=== PATIENT | female | born 1955 | race Caucasian/White ===

== ENCOUNTER → 2016-09-18 | Day surgery (SDC) | payer BC, OTHER ==
[2016-08-31 08:32] VITALS: Ht 166.4 cm; Wt 96.4 kg
[2016-09-11 13:10] LABS: HEMATOCRIT 39.6 % (37-47); MEAN CELL VOLUME 80.3 fL (80-100); MEAN CORPUSCULAR HEMOGLOBIN 26.6 pg (25-34); MEAN CORPUSCULAR HGB CONC 33.1 g/dl (32-36); MEAN PLATELET VOLUME 10.3 fL (7.4-10.4); PLATELET COUNT 206 K/uL (130-400); RED BLOOD COUNT 4.93 M/uL (4.2-5.4); WHITE BLOOD COUNT 5.93 K/uL (4.8-10.8)
[2016-09-11 13:25] LABS: PARTIAL THROMBOPLASTIN RATIO 1.1; PROTHROMBIN TIME (PATIENT) 11.1 SECONDS (9.0-12.0)
--- NOTE | 2016-09-11 13:45 | DIAGNOSTIC IMAGING REPORT ---
CHEST 2 VIEWS ROUTINE CLINICAL HISTORY: PRE OP- SEND TO [facility] AFTER RAD COMPARISON STUDY: 05/17/2015 FINDINGS: The bones soft tissues and hemidiaphragms are normal. The cardiomediastinal silhouette is normal. The lungs are clear. The pulmonary vasculature is normal. IMPRESSION: Negative chest. Electronically signed by: Jp Mueller M.D. 09/11/2016 1:42 PM Dictated Date/Time: 09/11/2016 1:42 PM
[~2016-09-18] VITALS: Ht 166.4 cm; Wt 96.4 kg
[~2016-09-18] MED LIST: ALBUAER2 INH; ASPI81TA28 PO; ATROPINE SULFATE 0.1 MG/ML 5ML SYR IV PRN; BUPIVACAINE 0.5 % 5 MG/1 ML MPF 30ML VIAL ONE; CEFAZOLIN 2000 MG/60 ML D5W 60 ML IV SCH; CEPH500C2 PO; CHOL100010 PO; CYAN100020 PO; DEXAMETHASONE SOD INJ 4 MG/ML VIAL ONE; DICY10CA12 PO; FENTANYL CITRATE INJ 50 MCG/1 ML 2 ML VIAL IV PRN; FENTANYL CITRATE INJ 50 MCG/1 ML 2 ML VIAL ONE; HYDROCODONE/ACETAMOPHEN 5/325MG TAB ONE; HYDROCODONE/ACETAMOPHEN 5/325MG TAB PO PRN; LACTATED RINGER'S 1000ML 1,000 ML IV SCH; LIDOCAINE HCL 1% 20 ML VIAL ONE; LIDOCAINE HCL 2% 2 ML VIAL (20MG/ML) ONE; LIQUID IRON PO; METOCLOPRAMIDE HCL INJ 5 MG/ML 2 ML VIAL IV PRN; MIDAZOLAM HCL 1 MG/ML 2ML VIAL ONE; MISCCAP80 PO; MULT-506 PO; ONDANSETRON INJ 2 MG/ML 2 ML VIAL IV PRN; ONDANSETRON INJ 2 MG/ML 2 ML VIAL ONE; OXYCODONE/ACETAMINOPHEN 5-325 TAB PO PRN; PROPOFOL IV EMULSION 10 MG/ML 20 ML VIAL IV ONE; SENN-58 PO; SODIUM CHLORIDE 0.9% 1000ML 1,000 ML IV SCH; VRPSR180 PO
--- NOTE | 2016-09-18 08:59 | History & Physical Bridge - [place] ---
H&P Re-Evaluation Bridge Note: I have examined the patient, reviewed the History & Physical and in the interval since the performance of the History & Physical I have noted the following changes of clinical significance: No changes noted
[2016-09-18 10:30] VITALS: TEMP 36.6
--- NOTE | 2016-09-18 10:32 | Discharge Instructions-SurgCtr ---
Discharge Instructions Date of Service Sep 18, 2016. Visit Reason for Visit: Left Foot Non Pressure Ulcer, Hammertoe, Pain Discharge Discharge Diagnosis / Problem: left hallux ulcer, diabetic, hammertoe 3rd Discharge Goals Goal(s): Decrease discomfort, Improve function Activity Recommendations Activity Limitations: as noted below (partial weightbearing left foot) Lifting Limitations: no more than 5 pounds Shower/Bathe: keep incision dry Driving or Machine Use: not until cleared Weightbearing Status: Left partial Anesthesia . Post Anesthesia Instructions: If you have had General Anesthesia or IV Sedation: * Do not drive today. * Resume driving when surgeon permits. * Do not make important decisions or sign legal documents today. * Call surgeon for: 1. Temperature elevations greater than 101 degrees F. 2. Uncontrollable pain. 3. Excessive bleeding. 4. Persistent nausea and vomiting. 5. Medication intolerance (nausea, vomiting or rash). * For nausea and vomiting use only clear liquids such as: tea, soda, bouillon until nausea subsides, then gradually increase diet as tolerated. * If you have any concerns or questions, call your surgeon's office. If physician is unavailable and it is an emergency, call 911 or go to the nearest emergency room. . Instructions / Follow-Up Instructions / Follow-Up keep dressing clean, dry and intact take pain medication as prescribed elevate left foot f/u Wednesday call [phone] with problems Diet Recommendations Home Diet: no limitations, diabetes diet Procedures Procedures Performed: Left Foot Surgical Correction Bunion Deformity, Distal Phalanx of Hallux Exosectomy, Ulcer Debridement With Bone Culture And Biopsy, Hammertoe Correction Third Digit Left Foot Pending Studies Studies pending at discharge: no Medical Emergencies . Who to Call and When: Medical Emergencies: If at any time you feel your situation is an emergency, please call 911 immediately. . Non-Emergent Contact Non-Emergency issues call your: Primary Care Provider Call Non-Emergent contact if: temperature is above 101.5 . . "Provider Documentation" section prepared by Rosanna Mcgill. . [place] Drug Monitoring Program Search Results: patient reviewed within database, no issues identified
--- NOTE | 2016-09-18 10:34 | [facility] Post Operative Brief Note ---
Immediate Operative Summary Operative Date Sep 18, 2016. Pre-Operative Diagnosis Left Foot Non Pressure Ulcer, Hammertoe 3rd Digit Left Foot, Pain Post-Operative Diagnosis same Procedure(s) Performed Left Foot Surgical Correction Bunion Deformity, Distal Phalanx of Hallux Exosectomy, Ulcer Debridement With Bone Culture And Biopsy, Hammertoe Correction Third Digit Left Foot Surgeon Dr. Sarai Bae Can Slider Surgeon(s) 0 Estimated Blood Loss 1cc Findings bone left foot and soft tissue Specimens A. Bone Left Talus Left Foot--sent FRESH to Lab B. C&S Bone Left Foot Culture Drains none Anesthesia local iv sedation Complication(s) None Disposition Recovery Room / PACU
[2016-09-18 11:04] VITALS: BP 121/73; PULSE 62; O2SAT 96
--- NOTE | 2016-09-18 11:09 | Anesthesia Progress Nt - [facility] ---
Anesthesia Post Op Note Date & Time Sep 18, 2016 at 11:09 Vital Signs Pain Intensity: 3.0 Vital Signs Past 12 Hours Date Time Temp Pulse Resp B/P Pulse Ox O2 Delivery O2 Flow Rate FiO2 09/18/16 11:04 62 18 121/73 96 Room Air 09/18/16 10:30 36.6 71 16 123/80 99 Room Air 09/18/16 07:40 36.4 55 16 132/83 97 Room Air Notes Mental Status: alert / awake / arousable, participated in evaluation Pt Amnestic to Procedure: Yes Nausea / Vomiting: adequately controlled Pain: adequately controlled Airway Patency, RR, SpO2: stable & adequate BP & HR: stable & adequate Hydration State: stable & adequate Anesthetic Complications: no major complications apparent
--- NOTE | 2016-09-19 01:49 | OPERATIVE REPORT ---
DATE OF OPERATION: 09/18/2016 SURGEON: Rosanna Mcgill DPM. PREOPERATIVE DIAGNOSES: Left foot ulcer, plantar phalanx. Ulcer measured about 0.3 x 0.4 with a depth that had measured about 0.2 and there was some probing to bone, although no bone visible and MRI was suspicious for osteomyelitis. She had an ulcer deformity. She has a slight bunion/arthritis/hallux rigidus at the first metatarsophalangeal joint and hammertoe of the third digit that also had an ulcer at the distal end, which with her being compliant, did heal. POSTOPERATIVE DIAGNOSES: Same. PROCEDURE: Left Lott arthroplasty with resection of the base of the proximal phalanx, exostectomy of the distal phalanx, ulcer debridement and bone culture and bone sent for pathology, and third digit arthroplasty. ANESTHESIA: Local IV sedation. BLOOD LOSS: About 1 mL DESCRIPTION OF PROCEDURE: The patient was brought to the operating room and placed in supine position. The left lower extremity was prepped and draped in the usual sterile manner. A 1:1 mix of 1% lidocaine plain and 0.5% Marcaine was utilized to anesthetize the left leg at the level of the first metatarsophalangeal joint, the left hallux, and the left third digit. At this time, anesthesia was induced, the tourniquet was inflated, a timeout was taken and the procedure began. A dorsal linear incision was made over the left third digit, this was over the proximal interphalangeal joint. Dissection was carried through the skin and subcutaneous tissues to the level of the joint capsule. The joint capsule was then transcribed as well as transcribing the long extensor tendon of the third digit and dissecting both medial and laterally and proximally and distally to expose the head of the proximal phalanx. This was excised utilizing the sagittal saw and passed off the table. The area was flushed with copious amounts of normal saline. An arthroplasty was performed with resection of the head of the proximal phalanx. Next, no K-wire fixation was used due to the patient having an ulcer that was present before. The long extensor tendon was then reattached utilizing 0 Vicryl and the subcutaneous tissues were closed with 3-0 Vicryl and skin was closed with 3-0 nylon in simple interrupted sutures. Next, attention was directed to the left first metatarsophalangeal joint. Dissection was carried through the skin and subcutaneous tissues to the level of the joint capsule. At this point, dissection was carried through the skin and subcutaneous tissues to the level of joint capsule which was transcribed in line with the original incision and dissected both medially and laterally to expose the joint. There was some arthritis present and there was a small amount of bone medially which was resected utilizing the sagittal saw. Next, the base of the proximal phalanx was excised, a very small amount was excised in order to increase the mobility in the joint space. Next, the area was flushed with copious amounts of normal saline and EHL tendon lengthening was also performed and the tendon was reattached utilizing 2-0 Vicryl. Next, the capsular tissues were closed with 3-0 Vicryl, the subcutaneous tissues were closed with 3-0 Vicryl, and the skin was closed with 3-0 nylon in horizontal mattress sutures. Attention was then directed to the ulceration that was present and the ulceration was debrided and any of the tissue was debrided, it was sent to pathology for permanent specimen. The bone which was underneath, part of the bone was excised utilizing the rongeur and sent as fresh specimen to pathology to check for osteomyelitis. Cultures were obtained. After the cultures, the area was flushed and the ulceration was closed with 2-0 nylon. At this point, compressive and corrective dressings were applied. The tourniquet was deflated. The patient was taken to recovery room with all vital signs stable and intact. She will follow up with me in the office in 1 week. The patient opted for surgical correction to help eliminate the high pressure areas that are predominant forces and forming ulcer at the plantar medial aspect of the hallux as well as the ulcer that repeatedly forms at the end of the 3rd digit. There was also a concern for osteomyelitis given the MRI conclusions of possible osteomyelitis. Thus far, the patient has been on antibiotics that are empiric in nature, and as stated previously, cultures are obtained to ensure she is continuing on the proper antibiotic. Again, she will sign consent for this and follow up with me in the office in 1 week. I attest to the content of the Intraoperative Record and any orders documented therein. Any exceptio ns are noted below.
== END | disposition home or self-care (01) ==
LOC: X.SURG 07:25
PROVIDERS: ATTEND Podiatrist
DX: L97.521 Non-pressure chronic ulcer of other part of left foot limited to breakdown of skin (principal); M20.42 Other hammer toe(s) (acquired), left foot; E11.42 Type 2 diabetes mellitus with diabetic polyneuropathy; Z68.34 Body mass index [BMI] 34.0-34.9, adult; E66.8 Other obesity

== ENCOUNTER 2017-05-23 20:52 | Emergency (ER) | payer BC, OTHER ==
[~2017-05-23] VITALS: Ht 166.4 cm; Wt 95.9 kg
[~2017-05-23 20:52] MED LIST changes: -ATROPINE SULFATE 0.1 MG/ML 5ML SYR IV PRN; -BUPIVACAINE 0.5 % 5 MG/1 ML MPF 30ML VIAL ONE; -CEFAZOLIN 2000 MG/60 ML D5W 60 ML IV SCH; -CEPH500C2 PO; -DEXAMETHASONE SOD INJ 4 MG/ML VIAL ONE; -FENTANYL CITRATE INJ 50 MCG/1 ML 2 ML VIAL IV PRN; -FENTANYL CITRATE INJ 50 MCG/1 ML 2 ML VIAL ONE; -HYDROCODONE/ACETAMOPHEN 5/325MG TAB ONE; -HYDROCODONE/ACETAMOPHEN 5/325MG TAB PO PRN; -LACTATED RINGER'S 1000ML 1,000 ML IV SCH; -LIDOCAINE HCL 1% 20 ML VIAL ONE; -LIDOCAINE HCL 2% 2 ML VIAL (20MG/ML) ONE; -METOCLOPRAMIDE HCL INJ 5 MG/ML 2 ML VIAL IV PRN; -MIDAZOLAM HCL 1 MG/ML 2ML VIAL ONE; -ONDANSETRON INJ 2 MG/ML 2 ML VIAL IV PRN; -ONDANSETRON INJ 2 MG/ML 2 ML VIAL ONE; -OXYCODONE/ACETAMINOPHEN 5-325 TAB PO PRN; -PROPOFOL IV EMULSION 10 MG/ML 20 ML VIAL IV ONE; -SODIUM CHLORIDE 0.9% 1000ML 1,000 ML IV SCH
[2017-05-23 20:54] VITALS: TEMP 36.7; Ht 166.4 cm; Wt 95.9 kg
[2017-05-23] MEDS ORDERED: SULFAMETHOXAZOLE/TRIMETHOPRIM DS 800/160MG TAB PO STA (21:19)
[2017-05-23] MEDS ORDERED: CEFTRIAXONE SOD INJ 1 GM ADDVIAL IV STA (21:19)
[2017-05-23 21:55] LABS: BASO % 0.2 %; BASO ABS # 0.02 K/uL (0-0.2); COMPLETE YES; EOS % 1.5 %; HEMATOCRIT 39.9 % (37-47); IG% 0.2 %; LYMPH % 23.4 %; LYMPH ABS # 2.35 K/uL (1.2-3.4); MEAN CELL VOLUME 85.4 fL (80-100); MEAN CORPUSCULAR HEMOGLOBIN 28.1 pg (25-34); MEAN CORPUSCULAR HGB CONC 32.8 g/dl (32-36); MEAN PLATELET VOLUME 10.1 fL (7.4-10.4); MONO % 9.4 %; NEUT % 65.3 %; PLATELET COUNT 195 K/uL (130-400); RED BLOOD COUNT 4.67 M/uL (4.2-5.4); WHITE BLOOD COUNT 10.03 K/uL (4.8-10.8)
--- NOTE | 2017-05-23 22:22 | DIAGNOSTIC IMAGING REPORT ---
ULTRASOUND L VENOUS DOPP LOWER EXT UNILAT CLINICAL HISTORY: left leg swelling COMPARISON STUDY: No previous studies for comparison. FINDINGS: Real-time and color flow Doppler imaging were performed. Flow was seen within the femoral, popliteal and calf veins with no intraluminal thrombus demonstrated. The saphenous vein is patent. IMPRESSION: No evidence of left lower extremity DVT. Electronically signed by: Ajit Larios M.D. 05/23/2017 10:21 PM Dictated Date/Time: 05/23/2017 10:20 PM
[2017-05-23 22:23] LABS: BUN/CREATININE RATIO 17.8 (10-20); CALCIUM 8.8 mg/dl (8.5-10.1); CREATININE 0.8 mg/dl (0.60-1.20); POTASSIUM 3.9 mmol/L (3.5-5.1)
[2017-05-23 22:26] LABS: PARTIAL THROMBOPLASTIN RATIO 1.7; PROTHROMBIN TIME (PATIENT) 21.2 SECONDS (9.0-12.0)
[2017-05-23] MEDS ORDERED: DOCU-94 PO (22:47)
[2017-05-23] MEDS ORDERED: BNT/10 PO (22:47)
[2017-05-23] MEDS ORDERED: WARF5TAB90 PO (22:47)
[2017-05-23] MEDS ORDERED: VNTHFA/IN INH (22:47)
[2017-05-23] MEDS ORDERED: MULTTAB PO (22:47)
[2017-05-23] MEDS ORDERED: FSLL PO (22:47)
[2017-05-23] MEDS ORDERED: FLV400 PO (22:47)
[2017-05-23] MEDS ORDERED: CHOL1TAB42 PO (22:47)
[2017-05-23] MEDS ORDERED: CALC1CHW2 PO (22:47)
[2017-05-23] MEDS ORDERED: MISCCAP80 PO (22:47)
[2017-05-23] MEDS ORDERED: PAIN PUMP (22:51)
[2017-05-23] MEDS ORDERED: ACETAMINOPHEN 500 MG TAB PO STA (23:13)
[2017-05-23] MEDS ORDERED: HYDROmorphone INJ 0.5 MG/0.5 ML SYR IV STA (23:32)
[2017-05-24 00:02] VITALS: PULSE 98; O2SAT 96
[2017-05-24 00:08] VITALS: BP 150/87
[2017-05-24] MEDS ORDERED: CEPHALEXIN 500MG HOME PACK 1 EA BTL PO ONE (00:15)
[2017-05-24] MEDS ORDERED: SEPTRA DS HOME PACK 1 EA VIAL PO ONE ×2 (00:15)
[2017-05-24] MEDS ORDERED: SULF800T23 PO (00:19)
[2017-05-24] MEDS ORDERED: CEPH500C PO (00:19)
--- NOTE | 2017-05-24 02:51 | EMERGENCY ROOM VISIT NOTE ---
History Report prepared by Brendan: Nacho May Under the Supervision of: Dr. Silvio Billings M.D. First contact with patient: 21:04 Chief Complaint: INFECTION Stated Complaint: SWELLING,PAIN,REDNESS,DRAINAGE FROM SURGICAL SITE History of Present Illness The patient is a 61 year old female who presents to the Emergency Room with complaints of a constant infection on her left foot beginning last night. The patient states that she recently had a plate placed on the right side of her left foot and pin placed in her third toe on her left foot. She notes that when she took her sock off last night, the pin was found lying inside. She reports that when she took the dressing off her toe this morning, it appeared a yellowish-brown color. She also complains of leg spasms going up her leg. The patient states that she thought she had a fever today, but did not have a temperature when she first came to the emergency room tonight. She reports that she has had a stroke in the past. Pt denies LOC, headache, chills, diaphoresis, visual changes, neck pain, chest pain, breathing difficulties, nausea, vomiting , abdominal pain, back pain, melena, hematochezia, urinary symptoms, numbness, weakness, lymphadenopathy, rash, flu symptoms, or other complaints. Source of History: patient Onset: last night Position: other Quality: other (infection) Timing: constant Associated Symptoms: + fevers (subjective) Note: She complains of a yellowish-brown discharge on her toe dressing and leg spasms. Review of Systems See HPI for pertinent positives and negatives. A total of ten systems were reviewed and were otherwise negative. Past Medical & Surgical Medical Problems: (1) Asthma (2) Avulsion, finger tip (3) Cerebrovascular accident (4) Chronic back pain (5) Depression (6) Diabetes (7) Post laminectomy syndrome (8) Presence of intrathecal pump (9) SOB (shortness of breath) Surgical Problems: (1) H/O foot surgery (2) History of breast biopsy (3) History of cataract surgery (4) History of cholecystectomy (5) History of gastric bypass Family History No pertinent family history stated. Social History Smoking Status: Former Smoker Marital Status: Housing Status: lives with significant other Occupation Status: disabled Current/Historical Medications Scheduled Aspirin (Aspirin Ec), 81 MG PO QAM Calcium Carbonate-Vitamin D (Caltrate 600+D 600-400 mg-Unit), 1 TAB PO DAILY Cephalexin Monohydrate (Keflex), 500 MG PO QID Cholecalciferol (Vitamin D), 5,000 UNITS PO DAILY Cyanocobalamin (Vitamin B12), 1 TAB PO QAM Ferrous Sulfate (Ferrous Sulfate), 5 ML PO BID Folic Acid (Folic Acid), 400 MCG PO BID Multivitamins/Minerals (Mvi With Minerals), 1 TAB PO DAILY Probiotic Product (Probiotic), 1 TAB PO DAILY Sulfa/Trimethoprim (Bactrim Ds 800MG/160MG), 1 TAB PO BID Verapamil HCl (Verapamil HCl ER), 180 MG PO QAM Warfarin Sodium (Coumadin), 5 MG PO DAILY [Pain Pump], UD Scheduled PRN Albuterol Hfa (Ventolin Hfa), 2 PUFFS INH Q4 PRN for SOB/Wheezing Dicyclomine HCl (Dicyclomine HCl), 10 MG PO QID PRN for Muscle Spasms Docusate Sodium (Colace), 1 CAP PO BID PRN for Constipation Allergies Coded Allergies: Aspirin (Verified Allergy, Severe, Asthma symptoms, 10/13/16) SOB, PRESSURE ON CHEST, OOB FEELING WITH 1ST DOSE OF DESENSITATION Latex1 -Allergic Contact Dermititis (Verified Allergy, Mild, RASH, 10/13/16 ) Guaifenesin (Verified Allergy, Unknown, ELEVATED BP, 10/13/16) NSAIDs (Verified Allergy, Unknown, TRIGGERS ASTHMA, 10/13/16) Phenylpropanolamine (Verified Allergy, Unknown, ELEVATED BLOOD PRESSURE, ) Red Dye (Verified Allergy, Unknown, VOMITING, 10/13/16) Docusate (Verified Adverse Reaction, Unknown, LIQUID COLACE "VOMITING", ) Ethanol (Verified Adverse Reaction, Unknown, LIQUID COLACE "VOMITING", ) Lorazepam (Verified Adverse Reaction, Unknown, SLEEP WALKING, 10/13/16) Zolpidem (Verified Adverse Reaction, Unknown, SLEEP WALKING, 10/13/16) Physical Exam Vital Signs Date Time Temp Pulse Resp B/P (MAP) Pulse Ox O2 Delivery O2 Flow Rate FiO2 05/24/17 00:08 150/87 05/24/17 00:02 98 20 96 05/23/17 23:57 95 16 96 05/23/17 23:42 89 14 05/23/17 23:32 124/75 05/23/17 23:28 142/91 05/23/17 23:27 95 17 05/23/17 23:07 101 22 92 05/23/17 22:52 99 23 94 05/23/17 22:45 101 05/23/17 22:38 103 18 148/82 97 05/23/17 20:54 36.7 108 18 127/79 98 Room Air Physical Exam GENERAL: Awake, alert, well-appearing, in no distress HENT: Normocephalic, atraumatic. Oropharynx unremarkable. EYES: Normal conjunctiva. Sclera non-icteric. NECK: Supple. No nuchal rigidity. FROM. No JVD. RESPIRATORY: Clear to auscultation. CARDIAC: Tachycardic, normal rhythm. Extremities warm and well perfused. Pulses equal. ABDOMEN: Soft, non-distended. No tenderness to palpation. No rebound or guarding. No masses. RECTAL: Deferred. MUSCULOSKELETAL: Chest examination reveals no tenderness. The back is symmetrical on inspection without obvious abnormality. There is no CVA tenderness to palpation. No joint edema. LOWER EXTREMITIES: Calves are equal size bilaterally. No discoloration. Left third toe is swollen, erythematous, warm and tender, purulent drainage from tip , redness and edema extending from top of foot. Left food second toe is surgically removed, incision over great toe on left side appears to be healing well. Left calf tenderness. NEURO: Normal sensorium. No sensory or motor deficits noted. SKIN: No rash or jaundice noted. Medical Decision & Procedures ER Provider Diagnostic Interpretation: Radiology results as stated below per my review and radiologist interpretation: ULTRASOUND L VENOUS DOPP LOWER EXT UNILAT CLINICAL HISTORY: left leg swelling COMPARISON STUDY: No previous studies for comparison. FINDINGS: Real-time and color flow Doppler imaging were performed. Flow was seen within the femoral, popliteal and calf veins with no intraluminal thrombus demonstrated. The saphenous vein is patent. IMPRESSION: No evidence of left lower extremity DVT. Electronically signed by: Ajit Larios M.D. 05/23/2017 10:21 PM FOOT X-RAY Bony destruction of head of fourth metatarsal which may be post surgical vs infectious. Hardware of the great toe and first metatarsal appears intact. There is no union of the third phalanges. No subcutaneous air was seen. Laboratory Results 05/23/17 21:30 Red Blood Count 4.67, Mean Corpuscular Volume 85.4, Mean Corpuscular Hemoglobin 28.1, Mean Corpuscular Hemoglobin Concent 32.8, Mean Platelet Volume 10.1, Neutrophils (%) (Auto) 65.3, Lymphocytes (%) (Auto) 23.4, Monocytes (%) (Auto) 9.4, Eosinophils (%) (Auto) 1.5, Basophils (%) (Auto) 0.2, Neutrophils # (Auto) 6.55, Lymphocytes # (Auto) 2.35, Monocytes # (Auto) 0.94, Eosinophils # (Auto) 0.15, Basophils # (Auto) 0.02 05/23/17 21:30 Test 05/23/17 21:30 White Blood Count 10.03 K/uL (4.8-10.8) Red Blood Count 4.67 M/uL (4.2-5.4) Hemoglobin 13.1 g/dL (12.0-16.0) Hematocrit 39.9 % (37-47) Mean Corpuscular Volume 85.4 fL (80-100) Mean Corpuscular Hemoglobin 28.1 pg (25-34) Mean Corpuscular Hemoglobin Concent 32.8 g/dl (32-36) Platelet Count 195 K/uL (130-400) Mean Platelet Volume 10.1 fL (7.4-10.4) Neutrophils (%) (Auto) 65.3 % Lymphocytes (%) (Auto) 23.4 % Monocytes (%) (Auto) 9.4 % Eosinophils (%) (Auto) 1.5 % Basophils (%) (Auto) 0.2 % Neutrophils # (Auto) 6.55 K/uL (1.4-6.5) Lymphocytes # (Auto) 2.35 K/uL (1.2-3.4) Monocytes # (Auto) 0.94 K/uL (0.11-0.59) Eosinophils # (Auto) 0.15 K/uL (0-0.5) Basophils # (Auto) 0.02 K/uL (0-0.2) RDW Standard Deviation 41.7 fL (36.4-46.3) RDW Coefficient of Variation 13.5 % (11.5-14.5) Immature Granulocyte % (Auto) 0.2 % Immature Granulocyte # (Auto) 0.02 K/uL (0.00-0.02) Prothrombin Time 21.2 SECONDS (9.0-12.0) Prothromb Time International Ratio 2.0 (0.9-1.1) Activated Partial Thromboplast Time 43.1 SECONDS (21.0-31.0) Partial Thromboplastin Ratio 1.7 Anion Gap 5.0 mmol/L (3-11) Est Creatinine Clear Calc Drug Dose 86.5 ml/min Estimated GFR () 92.9 Estimated GFR (Non- 80.1 BUN/Creatinine Ratio 17.8 (10-20) Calcium Level 8.8 mg/dl (8.5-10.1) Laboratory results reviewed by me Medications Administered Medications (Trade) Dose Ordered Sig/Lisa Route Start Time Stop Time Status Last Admin Dose Admin Ceftriaxone Sodium (Rocephin Inj) 1 gm NOW STAT IV 05/23/17 21:19 05/23/17 21:20 DC 05/23/17 21:47 1 GM Trimethoprim/ Sulfamethoxazole (Septra Ds 800/ 160MG Tab) 1 tab NOW STAT PO 05/23/17 21:19 05/23/17 21:20 DC 05/23/17 21:47 1 TAB Acetaminophen (Tylenol Tab) 1,000 mg NOW STAT PO 05/23/17 23:13 05/23/17 23:16 DC 05/23/17 23:21 1,000 MG Hydromorphone HCl (Dilaudid Inj) 0.5 mg NOW STAT IV 05/23/17 23:32 05/23/17 23:33 DC 05/23/17 23:46 0.5 MG Trimethoprim/ Sulfamethoxazole (Sulfameth/ Trimeth Ds 800/ 160MG Home Pack) 1 homepack UD ONCE PO 05/24/17 00:15 05/24/17 00:16 DC 05/24/17 00:29 1 HOMEPACK Trimethoprim/ Sulfamethoxazole (Sulfameth/ Trimeth Ds 800/ 160MG Home Pack) 1 homepack UD ONCE PO 05/24/17 00:15 05/24/17 00:16 DC 05/24/17 00:29 1 HOMEPACK Cephalexin Monohydrate (Keflex 500MG Home Pack) 1 homepack NOW ONCE PO 05/24/17 00:15 05/24/17 00:17 DC 05/24/17 00:29 1 [facility] ED Course 2107: The patient was evaluated in room B9. A complete history and physical exam was performed. 2118: Trimethoprim/Sulfamethoxazole 1 tab PO, Rocephin Inj 1gm IV 2215: I rechecked the patient and she is going well. 2313: Acetaminophen 1000mg PO 2326: I reevaluated and updated the patient. She is asking for some pain medication. 2332: Hydromorphone HCl 0.5mg IV 2359: I rechecked the patient. 0012: I reevaluated the patient. Discussed results and discharge instructions: She verbalized understanding and agreement. The patient is ready for discharge. Medical Decision Prior records reviewed and summarized as above. Triage Nursing notes reviewed and agree them. Additional history obtained from the family. The patient's history was concerning for swelling and redness of the skin. Differential diagnosis: Etiologies such as cellulitis, DVT, necrotizing fasciitis, abscess, MRSA infection, dermatitis, drug eruption, as well as others were entertained.. Physical examination: The physical examination was consistent with cellulitis ER treatment provided: IV Rocephin Oral Tylenol Oral Bactrim IV Dilaudid On reassessment the patient felt much better. Diagnostics interpreted by me: The labs revealed an unremarkable CBC and chemistry panel. Cultures pending. Gram stain showed gram-positive cocci. Imaging studies: X-rays of both. Immediate postsurgical x-rays are not currently available for comparison. This appears to be isolated cellulitis and postoperative wound infection. The patient will be covered with Keflex and Bactrim pending cultures. She will need a follow-up closely for her INR as well as with her surgeon the day after [place]. If she worsens in any way she will be back to the Emergency Room for reevaluation. She is currently nonweightbearing unless she has her Cam boot present. By the evaluation outlined above emergent etiologies such as abscess, necrotizing fasciitis, DVT, as well as others were deemed relatively unlikely. The patient and family were informed about the findings as listed above. All questions were answered and they were pleased with the treatment. Return instructions were outlined and the patient was discharged in stable condition. Outpatient prescription management: Bactrim Keflex Referral: The patient was referred back to her surgeon and primary care physician for follow-up in 2 to 3 days for a recheck of the current condition. Medication Reconcilliation Current Medication List: was personally reviewed by me Blood Pressure Screening Patient's blood pressure: Elevated blood pressure Blood pressure disposition: Elevated BP felt to be situational Impression Primary Impression: Cellulitis of left foot Additional Impression: Postoperative infection Scribe Attestation The scribe's documentation has been prepared under my direction and personally reviewed by me in its entirety. I confirm that the note above accurately reflects all work, treatment, procedures, and medical decision making performed by me. Departure Information Dispostion Home / Self-Care Prescriptions Sulfa/Trimethoprim (Bactrim Ds 800MG/160MG) Tab 1 TAB PO BID, #16 TAB Prov: Silvio Billings MD 05/24/17 Cephalexin Monohydrate (Keflex) 500 Mg Cap 500 MG PO QID, #36 CAP Prov: Silvio Billings MD 05/24/17 Referrals No Doctor, Assigned (PCP) Forms HOME CARE DOCUMENTATION FORM, IMPORTANT VISIT INFORMATION, WORK / SCHOOL INSTRUCTIONS Patient Instructions [facility] Additional Instructions CELLULITIS INSTRUCTIONS: Cephalexin(Keflex) 500mg: Take one pill four times daily for 10 days for your skin infection. All antibiotics can cause diarrhea. If this occurs and you feel worse or it does not resolve in 1-2 days follow up with your doctor or return to the Emergency Department as this could be signs of serious underlying problems. Any medication can cause an allergic reaction, stop the pills immediately and return to the ER for rash, hives, breathing difficulties, or swelling. Trimethoprim-Sulfamethoxazole(Bactrim DS): Take one pill twice daily for 10 days for your skin infection. All antibiotics can cause diarrhea. If this occurs and you feel worse or it does not resolve in 1-2 days follow up with your doctor or return to the Emergency Department as this could be signs of serious underlying problems. Any medication can cause an allergic reaction, stop the pills immediately and return to the ER for rash, hives, breathing difficulties, or swelling. Continue your hydrocodone for pain as needed. Hydrocodone/acetaminophen 5/325mg: Take 1-2 pills every 6 hours as needed for pain. Avoid additional Acetaminophen/Tylenol, alcohol, operating machinery or dangerous equipment, working on ladders or roofs, DRIVING, or situations where being under the influence may be dangerous. It is recommended to use a stool softener such as Colace, 100mg twice daily while taking this medication to avoid constipation. Warm compresses to the affected area 4 times daily for 15-20 minutes. Rest and drink plenty of fluids. Continue current medications. Return to the ER for severe pain, persistent fevers, spreading redness, or any worsening of your condition. Follow up with your surgeon Wednesday for a recheck of the current condition. Keep the wound covered. Follow-up with the Emergency Room by phone on Wednesday at [phone] regarding your culture results. Follow-up with your primary physician this week as well because your INR will need to be rechecked. Antibiotics will cause the INR to increase, blood will become more thin, and the Coumadin dosing may need to be adjusted. Problem Qualifiers
--- NOTE | 2017-05-24 05:32 | DIAGNOSTIC IMAGING REPORT ---
L FOOT MIN 3 VIEWS ROUTINE CLINICAL HISTORY: 61 years-old Female presenting with left third toe swollen, infection. TECHNIQUE: Frontal, oblique, and lateral views of the left foot were obtained. COMPARISON: Intraoperative fluoroscopy from 01/18/2015. FINDINGS: Surgical resection of the head of the second metatarsal, unchanged. There has been interval arthrodesis of the first metatarsophalangeal joint with cortical compression plate and screw fixation and a single transarticular screw. The joint surfaces of the first NTP joint are irregular with evidence of erosion. This was also slight alteration in the appearance of the residual distal metaphysis of the second metatarsal though the adjacent base of the proximal phalanx of the second toe does not demonstrate kiley erosive changes. Absence of the distal portion of the proximal phalanx of the third toe with subtle evidence of periostitis as well as diffuse soft tissue swelling of the third toe. An anchor is noted in the calcaneus. Bony spurring at the posterior and inferior calcaneus. Diffuse subcutaneous edema most prominently along the dorsum of the forefoot. No acute fracture or malalignment. IMPRESSION: 1. Soft tissue swelling accompanied by osseous dissolution and subtle periostitis of the proximal phalanx of the third toe is highly suspicious for osteomyelitis. 2. Erosive changes at the first MTP joint with evidence of arthrodesis. It is difficult to exclude infection/septic arthritis at this site given the appearance, however, it may be related to arthrodesis and chronic. This would be better evaluated with noncontrast MR of the forefoot if there is clinical concern. The report will be called/faxed according to standard departmental protocol. Electronically signed by: Ashish Balbuena M.D. 05/24/2017 5:31 AM Dictated Date/Time: 05/24/2017 5:26 AM
--- NOTE | 2017-05-25 12:43 | Pharmacy Progress Note ---
ED Pharmacist Culture FollowUp Date of Service: May 25, 2017. Patient's abscess/swab cx of L foot from 05/23/17 is growing MSSA. She was initially discharged w/ Rx's for Bactrim DS and Keflex. She however returned on 05/24 and was admitted for possible osteomyelitis. She remains hospitalized and is being followed by ID who is aware of these cx results. Patient is currently receiving appropriate IV ABX therapy in the form of Rocephin. No further action required from ED standpoint.
[2017-05-30] MEDS ORDERED: ACET-1047 PO (12:58)
[2017-05-30] MEDS ORDERED: RXC5 PO (14:37)
[2017-06-03] MEDS ORDERED: CEFT1INJ57 IV (14:36)
== END 2017-05-24 00:32 | disposition home or self-care (01) ==
LOC: C.EDB 20:54
DX: T81.4XXA Infection following a procedure, initial encounter (principal); L03.116 Cellulitis of left lower limb; Y83.1 Surgical operation with implant of artificial internal device as the cause of abnormal reaction of the patient, or of later complication, without mention of misadventure at the time of the procedure; E11.9 Type 2 diabetes mellitus without complications; Z86.73 Personal history of transient ischemic attack (TIA), and cerebral infarction without residual deficits; Z79.899 Other long term (current) drug therapy; Z79.01 Long term (current) use of anticoagulants

== ENCOUNTER 2017-05-24 12:34 | Inpatient (IN) | payer BC, OTHER ==
[~2017-05-24] VITALS: Ht 165.1 cm; Wt 96.0 kg
[~2017-05-24 12:34] MED LIST changes: -ALBUAER2 INH; +BNT/10 PO; +CALC1CHW2 PO; +CEPH500C PO; -CHOL100010 PO; +CHOL1TAB42 PO; -DICY10CA12 PO; +DOCU-94 PO; +FLV400 PO; +FSLL PO; -LIQUID IRON PO; -MULT-506 PO; +MULTTAB PO; +PAIN PUMP; -SENN-58 PO; +SULF800T23 PO; +VNTHFA/IN INH; +WARF5TAB90 PO
[2017-05-24] MEDS ORDERED: ONDANSETRON INJ 2 MG/ML 2 ML VIAL IV STA (13:02)
[2017-05-24] MEDS ORDERED: SODIUM CHLORIDE 0.9% 1000ML 1,000 ML IV ONE (13:02)
[2017-05-24] MEDS ORDERED: VANCOMYCIN 1GM/270ML NSS IV STA (13:02)
[2017-05-24] MEDS ORDERED: CEFEPIME IV 2,000 MG in DEXTROSE 5% 100ML 100 ML IV STA (13:02)
[2017-05-24] MEDS ORDERED: HYDROmorphone INJ 1 MG/ML SYR ONE ×2 (13:16→14:42)
--- NOTE | 2017-05-24 13:17 | EMERGENCY ROOM VISIT NOTE ---
History Report prepared by Brendan: Verito Ahumada Under the Supervision of: Dr. Michael Gongora M.D. First contact with patient: 12:52 Chief Complaint: FOOT PAIN Stated Complaint: INFECTION IN LEFT FOOT History of Present Illness The patient is a 61 year old female who presents to the Emergency Room with complaints of worsening left foot pain beginning a couple days ago. The patient was seen in the ED yesterday was diagnosed with cellulitis of the foot, radiologist reread the x-ray this morning as a potential osteomyelitis. The patient was told to come back to the ED for further evaluation. She reports nausea and body aches but denies any fever or sweats. The patient recently had her foot operated on and had a plate and pin put in her left foot. She was supposed to have the pin taken out of her foot May 26 but the pin fell out a couple days ago--it fell out of the 3rd toe. The patient states that her foot pain has worsened since being seen in the ED yesterday. She reports getting Dilaudid while in the ED yesterday which helped her pain. She is currently taking Bactrim and Keflex which was prescribed yesterday. The patient's wound culture from yesterday has grown Staph Aureus. Source of History: patient Onset: a couple days ago Position: foot (left) Timing: worsening Associated Symptoms: + nausea, No fevers, No diaphoresis Review of Systems See HPI for pertinent positives & negatives. A total of 10 systems reviewed and were otherwise negative. Past Medical & Surgical Medical Problems: (1) Asthma (2) Avulsion, finger tip (3) Cerebrovascular accident (4) Chronic back pain (5) Depression (6) Diabetes (7) Post laminectomy syndrome (8) Presence of intrathecal pump (9) SOB (shortness of breath) Surgical Problems: (1) H/O foot surgery (2) History of breast biopsy (3) History of cataract surgery (4) History of cholecystectomy (5) History of gastric bypass Social History Smoking Status: Never Smoker Marital Status: Housing Status: lives with significant other Occupation Status: disabled Current/Historical Medications Scheduled Aspirin (Aspirin Ec), 81 MG PO QAM Calcium Carbonate-Vitamin D (Caltrate 600+D 600-400 mg-Unit), 1 TAB PO DAILY Cephalexin Monohydrate (Keflex), 500 MG PO QID Cholecalciferol (Vitamin D), 5,000 UNITS PO DAILY Cyanocobalamin (Vitamin B12), 1 TAB PO QAM Ferrous Sulfate (Ferrous Sulfate), 5 ML PO BID Folic Acid (Folic Acid), 400 MCG PO BID Multivitamins/Minerals (Mvi With Minerals), 1 TAB PO DAILY Probiotic Product (Probiotic), 1 TAB PO DAILY Sulfa/Trimethoprim (Bactrim Ds 800MG/160MG), 1 TAB PO BID Verapamil HCl (Verapamil HCl ER), 180 MG PO QAM Warfarin Sodium (Coumadin), 5 MG PO DAILY [Pain Pump], UD Scheduled PRN Albuterol Hfa (Ventolin Hfa), 2 PUFFS INH Q4 PRN for SOB/Wheezing Dicyclomine HCl (Dicyclomine HCl), 10 MG PO QID PRN for Muscle Spasms Docusate Sodium (Colace), 1 CAP PO BID PRN for Constipation Allergies Coded Allergies: Aspirin (Verified Allergy, Severe, Asthma symptoms, 05/24/17) SOB, PRESSURE ON CHEST, OOB FEELING WITH 1ST DOSE OF DESENSITATION Latex1 -Allergic Contact Dermititis (Verified Allergy, Mild, RASH, ) Guaifenesin (Verified Allergy, Unknown, ELEVATED BP, 05/24/17) NSAIDs (Verified Allergy, Unknown, TRIGGERS ASTHMA, 05/24/17) Phenylpropanolamine (Verified Allergy, Unknown, ELEVATED BLOOD PRESSURE, 05/24/17) Red Dye (Verified Allergy, Unknown, VOMITING, 05/24/17) Docusate (Verified Adverse Reaction, Unknown, LIQUID COLACE "VOMITING", ) Ethanol (Verified Adverse Reaction, Unknown, LIQUID COLACE "VOMITING", ) Lorazepam (Verified Adverse Reaction, Unknown, SLEEP WALKING, 05/24/17) Zolpidem (Verified Adverse Reaction, Unknown, SLEEP WALKING, 05/24/17) Physical Exam Vital Signs Date Time Temp Pulse Resp B/P (MAP) Pulse Ox O2 Delivery O2 Flow Rate FiO2 05/24/17 12:43 36.7 92 18 124/75 100 Room Air Physical Exam GENERAL: Patient is in no acute distress. HEENT: No acute trauma, normocephalic atraumatic, mucous membranes moist, no nasal congestion, no scleral icterus. NECK: No stridor, no adenopathy, no meningismus, trachea is midline. LUNGS: Clear to auscultation bilaterally, no wheeze, no rhonchi, breath sounds equal. HEART: Mildly tachycardic, no murmur, normal rhythm. ABDOMEN: Soft, nontender, bowel sounds positive, no hernias, no peritonitis. EXTREMITIES: Left foot erythematous, warm to touch and swollen, redness extending up the lateral ankle, entire wet machine tender to touch, evidence for open wound to left third toe. NEUROLOGIC: Oriented x 3, no acute motor or sensory deficits, no focal weakness. SKIN: No rash, no jaundice, no diaphoresis. Medical Decision & Procedures ER Provider Diagnostic Interpretation: CT pending. Laboratory Results 05/24/17 14:02 Red Blood Count 4.62, Mean Corpuscular Volume 84.8, Mean Corpuscular Hemoglobin 28.4, Mean Corpuscular Hemoglobin Concent 33.4, Mean Platelet Volume 10.2, Neutrophils (%) (Auto) 75.1, Lymphocytes (%) (Auto) 14.3, Monocytes (%) (Auto) 9.7, Eosinophils (%) (Auto) 0.5, Basophils (%) (Auto) 0.2, Neutrophils # (Auto) 8.88, Lymphocytes # (Auto) 1.69, Monocytes # (Auto) 1.15, Eosinophils # (Auto) 0.06, Basophils # (Auto) 0.02 05/24/17 14:02 Test 05/24/17 14:02 05/24/17 14:09 White Blood Count 11.82 K/uL (4.8-10.8) Red Blood Count 4.62 M/uL (4.2-5.4) Hemoglobin 13.1 g/dL (12.0-16.0) Hematocrit 39.2 % (37-47) Mean Corpuscular Volume 84.8 fL (80-100) Mean Corpuscular Hemoglobin 28.4 pg (25-34) Mean Corpuscular Hemoglobin Concent 33.4 g/dl (32-36) Platelet Count 196 K/uL (130-400) Mean Platelet Volume 10.2 fL (7.4-10.4) Neutrophils (%) (Auto) 75.1 % Lymphocytes (%) (Auto) 14.3 % Monocytes (%) (Auto) 9.7 % Eosinophils (%) (Auto) 0.5 % Basophils (%) (Auto) 0.2 % Neutrophils # (Auto) 8.88 K/uL (1.4-6.5) Lymphocytes # (Auto) 1.69 K/uL (1.2-3.4) Monocytes # (Auto) 1.15 K/uL (0.11-0.59) Eosinophils # (Auto) 0.06 K/uL (0-0.5) Basophils # (Auto) 0.02 K/uL (0-0.2) RDW Standard Deviation 40.9 fL (36.4-46.3) RDW Coefficient of Variation 13.3 % (11.5-14.5) Immature Granulocyte % (Auto) 0.2 % Immature Granulocyte # (Auto) 0.02 K/uL (0.00-0.02) Prothrombin Time 19.3 SECONDS (9.0-12.0) Prothromb Time International Ratio 1.9 (0.9-1.1) Activated Partial Thromboplast Time 44.6 SECONDS (21.0-31.0) Partial Thromboplastin Ratio 1.7 Anion Gap 8.0 mmol/L (3-11) Est Creatinine Clear Calc Drug Dose 96.6 ml/min Estimated GFR () 107.3 Estimated GFR (Non- 92.6 BUN/Creatinine Ratio 17.6 (10-20) Calcium Level 9.2 mg/dl (8.5-10.1) Total Bilirubin 0.4 mg/dl (0.2-1) Aspartate Amino Transf (AST/SGOT) 16 U/L (15-37) Alanine Aminotransferase (ALT/SGPT) 18 U/L (12-78) Alkaline Phosphatase 136 U/L (45-117) Total Protein 7.9 gm/dl (6.4-8.2) Albumin 3.4 gm/dl (3.4-5.0) Globulin 4.5 gm/dl (2.5-4.0) Albumin/Globulin Ratio 0.8 (0.9-2) Bedside Lactic Acid Venous 1.14 mmol/L (0.90-1.70) Laboratory results reviewed by me. Medications Administered Medications (Trade) Dose Ordered Sig/Lisa Route Start Time Stop Time Status Last Admin Dose Admin Sodium Chloride 1,000 ml @ 999 mls/hr Q1H1M ONCE IV 05/24/17 13:02 05/24/17 14:02 DC 05/24/17 13:58 999 MLS/HR Cefepime HCl 2000 mg/Dextrose 112.5 ml @ 200 mls/hr ONE STAT IV 05/24/17 13:02 05/24/17 13:35 DC 05/24/17 13:59 200 MLS/HR Ondansetron HCl (Zofran Inj) 4 mg NOW STAT IV 05/24/17 13:02 05/24/17 13:06 DC 05/24/17 13:59 4 MG Hydromorphone HCl (Dilaudid Inj) 1 mg STK-MED ONCE .ROUTE 05/24/17 13:16 05/24/17 13:17 DC 05/24/17 13:59 1 MG ED Course 1258: The patient was evaluated in room A12B. A complete history and physical exam was performed. 1302: Ordered Zofran Inj 4 mg IV, Vancomycin HCl 1 gm IV, Cefepime HCl 2000 mg/ Dextrose 112.5 ml @ 200 mls/hr IV. 1302: Ordered Sodium Chloride 1000 ml @ 999 mls/hr IV. 1312: Discussed the patient's case with Dr. Barber. The patient will be evaluated for further management. 1315: Ordered Dilaudid Inj 1 mg IV. 1316: Ordered Dilaudid Inj 1 mg .ROUTE. 1434: CT pending. Medical Decision Differential diagnoses include: osteomyelitis, failure outpatient treatment, cellulitis, sepsis, MRSA, dehydration, electrolyte imbalance, anemia . There is a mild leukocytosis at 11,000, this could be consistent with infection. No worrisome anemia. No significant electrolyte abnormality or kidney failure. No hepatitis. Lactic acid level is not elevated making severe sepsis less likely. INR was elevated consistent with her Coumadin use. Blood cultures are pending. Left foot CT is pending. The patient presents with worsening of her left foot infection. Her foot x-ray from yesterday was over read as showing osteomyelitis. She actually feels like her foot has worsened since yesterday despite the oral Bactrim and oral Keflex. The patient received IV Dilaudid, IV Zofran, IV saline. She was given IV vancomycin and IV cefepime. I did speak with case management, I talked with the patient. Hospitalization is warranted. The on-call hospitalist was consulted. Medication Reconcilliation Current Medication List: was personally reviewed by me Blood Pressure Screening Patient's blood pressure: Normal blood pressure Consults Time Called: 1310 Consulting Physician: Dr. Barber Returned Call: 1312 Discussed the patient's case. The patient will be evaluated for further management. Impression Primary Impression: Osteomyelitis Additional Impression: Failure of outpatient treatment Scribe Attestation The scribe's documentation has been prepared under my direction and personally reviewed by me in its entirety. I confirm that the note above accurately reflects all work, treatment, procedures, and medical decision making performed by me. Departure Information Dispostion Being Evaluated By Hospitalist Referrals Jp Mckay M.D. (PCP) Patient Instructions My [facility] Problem Qualifiers
[2017-05-24] MEDS: HYDROmorphone INJ 2 MG/ML SYR/VIAL IV PRN ×2 (13:59→14:46)
[2017-05-24] MEDS ORDERED: DOCUSATE SODIUM 100 MG CAP PO PRN (14:00)
[2017-05-24] MEDS ORDERED: DICYCLOMINE HCL 10 MG CAP PO PRN (14:00)
[2017-05-24] MEDS ORDERED: ALBUTEROL HFA 8 GM INHALER INH PRN (14:00)
[2017-05-24] MEDS ORDERED: ALUMINUM/MAGNESIUM/SIMETH (MAALOX MAX) 30 ML UDC PO PRN (14:00)
[2017-05-24 14:14] LABS: BASO % 0.2 %; BASO ABS # 0.02 K/uL (0-0.2); EOS % 0.5 %; EOS ABS # 0.06 K/uL (0-0.5); HEMATOCRIT 39.2 % (37-47); HEMOGLOBIN 13.1 g/dL (12.0-16.0); IG# 0.02 K/uL (0.00-0.02); LYMPH % 14.3 %; LYMPH ABS # 1.69 K/uL (1.2-3.4); MEAN CELL VOLUME 84.8 fL (80-100); MEAN CORPUSCULAR HEMOGLOBIN 28.4 pg (25-34); MEAN CORPUSCULAR HGB CONC 33.4 g/dl (32-36); MEAN PLATELET VOLUME 10.2 fL (7.4-10.4); MONO % 9.7 %; MONO ABS # 1.15 K/uL (0.11-0.59); NEUT % 75.1 %; NEUT ABS # 8.88 K/uL (1.4-6.5); PLATELET COUNT 196 K/uL (130-400); RED CELL DISTRIBUTION WIDTH CV 13.3 % (11.5-14.5); RED CELL DISTRIBUTION WIDTH SD 40.9 fL (36.4-46.3); WHITE BLOOD COUNT 11.82 K/uL (4.8-10.8)
[2017-05-24 14:31] LABS: ALBUMIN 3.4 gm/dl (3.4-5.0); CALCIUM 9.2 mg/dl (8.5-10.1); CREATININE 0.71 mg/dl (0.60-1.20); POTASSIUM 4.1 mmol/L (3.5-5.1)
[2017-05-24 14:34] LABS: TOTAL PROTEIN 7.9 gm/dl (6.4-8.2)
[2017-05-24 14:35] LABS: INR 1.9 (0.9-1.1); PTT PATIENT 44.6 SECONDS (21.0-31.0)
[2017-05-24] MEDS ORDERED: VANCOMYCIN INJ 2,250 MG in SODIUM CHLORIDE 0.9% 500ML 500 ML IV ONE (14:45)
--- NOTE | 2017-05-24 14:52 | DIAGNOSTIC IMAGING REPORT ---
L LOWER EXTREMITY WITHOUT CLINICAL HISTORY: 61 years-old Female presenting with poss osteo, left foot. TECHNIQUE: Multidetector CT of the left foot was performed without the use of intravenous contrast. IV contrast: None. A dose lowering technique was used consistent with the principles of ALARA (as low as reasonably achievable). COMPARISON: Plain radiographs from 05/23/2017. CT DOSE (mGy.cm): The estimated cumulative dose is 191.27 mGy.cm. FINDINGS: Child Psychometrist topogram: Unremarkable. Achilles tendon anchor noted in the calcaneus. Thickening of the distal Achilles tendon suggested. Bone spur at the inferior calcaneus. Ankle mortise intact. Plate and screw fixation across the first metatarsophalangeal articulation with a transarticular screw also in place. Irregularity of the head of the first metatarsal and base of the proximal phalanx of the first toe with loss of joint space, likely expected arthrodesis findings. Postsurgical changes of resection of the head of the second metatarsal. Absence of the head of the proximal phalanx of the third toe. Diffuse soft tissue swelling of the third toe. Osseous dissolution of the base of the middle phalanx of the third toe may be present. Diffuse subcutaneous edema. No gross hardware complication. No acute fracture. No focal fluid collections allowing for noncontrast technique IMPRESSION: 1. Diffuse subcutaneous edema with focal more significant soft tissue swelling of the third toe suggesting a focal site of infection. Additionally, osseous dissolution of the base of the middle phalanx of the third toe. The absence of the head of the proximal phalanx of the third toe may represent postsurgical change. Findings remain suspicious for osteomyelitis of the third toe. 2. Postsurgical changes as above. No hardware complication or acute osseous injury. Electronically signed by: Ashish Balbuena M.D. 05/24/2017 2:50 PM Dictated Date/Time: 05/24/2017 2:45 PM
--- NOTE | 2017-05-24 15:00 | Pharmacy Progress Note ---
Pharmacy Antibiotic Consult Date of Service: May 24, 2017. Pharmacy Dosing Scope Pharmacy is consulted to initiate vancomycin IV dosing therapy, order appropriate labs and adjust drug dose/frequency. Subjective The patient is a 61 year old female admitted on 05/24. Objective Height (Feet): 5 Height (Inches): 5.00 Weight (Kilograms): 96.000 Lab Results (24hrs): Test 05/24/17 14:02 05/24/17 14:09 White Blood Count 11.82 K/uL (4.8-10.8) Red Blood Count 4.62 M/uL (4.2-5.4) Hemoglobin 13.1 g/dL (12.0-16.0) Hematocrit 39.2 % (37-47) Mean Corpuscular Volume 84.8 fL (80-100) Mean Corpuscular Hemoglobin 28.4 pg (25-34) Mean Corpuscular Hemoglobin Concent 33.4 g/dl (32-36) Platelet Count 196 K/uL (130-400) Mean Platelet Volume 10.2 fL (7.4-10.4) Neutrophils (%) (Auto) 75.1 % Lymphocytes (%) (Auto) 14.3 % Monocytes (%) (Auto) 9.7 % Eosinophils (%) (Auto) 0.5 % Basophils (%) (Auto) 0.2 % Neutrophils # (Auto) 8.88 K/uL (1.4-6.5) Lymphocytes # (Auto) 1.69 K/uL (1.2-3.4) Monocytes # (Auto) 1.15 K/uL (0.11-0.59) Eosinophils # (Auto) 0.06 K/uL (0-0.5) Basophils # (Auto) 0.02 K/uL (0-0.2) RDW Standard Deviation 40.9 fL (36.4-46.3) RDW Coefficient of Variation 13.3 % (11.5-14.5) Immature Granulocyte % (Auto) 0.2 % Immature Granulocyte # (Auto) 0.02 K/uL (0.00-0.02) Prothrombin Time 19.3 SECONDS (9.0-12.0) Prothromb Time International Ratio 1.9 (0.9-1.1) Activated Partial Thromboplast Time 44.6 SECONDS (21.0-31.0) Partial Thromboplastin Ratio 1.7 Sodium Level 137 mmol/L (136-145) Potassium Level 4.1 mmol/L (3.5-5.1) Chloride Level 102 mmol/L (98-107) Carbon Dioxide Level 28 mmol/L (21-32) Anion Gap 8.0 mmol/L (3-11) Blood Urea Nitrogen 13 mg/dl (7-18) Creatinine 0.71 mg/dl (0.60-1.20) Est Creatinine Clear Calc Drug Dose 96.6 ml/min Estimated GFR () 107.3 Estimated GFR (Non- 92.6 BUN/Creatinine Ratio 17.6 (10-20) Random Glucose 95 mg/dl (70-99) Calcium Level 9.2 mg/dl (8.5-10.1) Total Bilirubin 0.4 mg/dl (0.2-1) Aspartate Amino Transf (AST/SGOT) 16 U/L (15-37) Alanine Aminotransferase (ALT/SGPT) 18 U/L (12-78) Alkaline Phosphatase 136 U/L (45-117) Total Protein 7.9 gm/dl (6.4-8.2) Albumin 3.4 gm/dl (3.4-5.0) Globulin 4.5 gm/dl (2.5-4.0) Albumin/Globulin Ratio 0.8 (0.9-2) Bedside Lactic Acid Venous 1.14 mmol/L (0.90-1.70) Micro Results: Date/Time Source Procedure Growth Status 05/24/17 14:02 Blood Blood Culture Pending Received 05/24/17 13:51 Blood Blood Culture Pending Received Date/Time Source Procedure Growth Status 05/24/17 14:02 Blood Blood Culture Pending Received Recent Pertinent Medications Patient received prescription for keflex and bactrim Assessment & Plan Assessment: 61 yo female presented to ED with cellulitis discharged with keflex and bactrim. Called to return to ED for possible osteomyelitis on x-ray. Wound culture from 05/23 growing s. auerus, sensitivities pending. Blood cultures pending. Plan: Loading dose: 2250 (23 mg/kg) mg IV X 1 dose then: 1500 mg (15.6 mg/kg) IV every 12 hours. Population PK: SCr 0.71, CrCl 96.6 (age max 90 ml/min), ke ~0.079, T1/2 ~8.7 hrs Patient at risk for accumulation with BIM >35, however want more aggressive dosing for possible osteo. Goal trough level estimate: between 17-20 mcg/mL. Trough level ordered for 05/26. Pharmacy will continue to follow and will adjust dose/frequency as necessary. Thank you
--- NOTE | 2017-05-24 15:11 | History and Physical ---
History & Physical Date & Time of Service: May 24, 2017 at 14:25 Chief Complaint: Infection In Left Foot Primary Care Physician: Jp Mckay M.D. History of Present Illness Source: patient, clinic records, hospital records This is a 61 year old female with a PMH of multiple foot problems and surgeries including neuroma surgery, multiple hammer toe surgeries, neuropathy and neuropathic pain s/p pain pump (morphine + baclofen); hx. of DM2, no longer on a medications due to gastric bypass and weight loss; hx. of CVA and residual visual disturbance; HTN; asthma; depression; presents secondary to L foot pain, burning, redness. States she recently had surgery on April 29 -- L foot first metatarsal phalangeal fusion and third digit hammertoe deformity correction. She was told not to be weightbearing on that foot, but may be using it as per records. She tells me that it was doing fine for a few weeks, but then she states it became red, swollen and much more tender starting on May 20. She presented to the ER on May 23 and was discharged , but was called back when imaging could have suggested osteomyelitis and cultures were growing a staph infection. Upon presentation, the foot was more red and swollen than prior. +fevers. No chest pain, no shortness of breath. + pain not controlled with IV Dilaudid in the ED. She also states her appetite is poor due to her foot pain. Past Medical/Surgical History Medical Problems: (1) Asthma Status: Chronic (2) Avulsion, finger tip Status: Resolved (3) Cerebrovascular accident Status: Resolved (4) Depression Status: Chronic (5) Diabetes Status: Chronic (6) Post laminectomy syndrome Status: Resolved Surgical Problems: (1) History of breast biopsy Status: Resolved (2) History of cataract surgery Status: Resolved (3) History of cholecystectomy Status: Resolved (4) History of gastric bypass Status: Resolved Social History Smoking Status: Former Smoker Marital Status: Occupational Status: disabled Immunizations History of Influenza Vaccine: Yes Influenza Vaccine Date: Feb 09, 2011 History of Tetanus Vaccine?: Yes Tetanus Immunization Date: Jan 29, 2005 History of Pneumococcal: Yes Pneumococcal Date: Mar 31, 2006 History of Hepatitis B Vaccine: Yes Multi-Drug Resistant Organisms History of MDRO: No Allergies Coded Allergies: Aspirin (Verified Allergy, Severe, Asthma symptoms, 05/24/17) SOB, PRESSURE ON CHEST, OOB FEELING WITH 1ST DOSE OF DESENSITATION Latex1 -Allergic Contact Dermititis (Verified Allergy, Mild, RASH, ) Guaifenesin (Verified Allergy, Unknown, ELEVATED BP, 05/24/17) NSAIDs (Verified Allergy, Unknown, TRIGGERS ASTHMA, 05/24/17) Phenylpropanolamine (Verified Allergy, Unknown, ELEVATED BLOOD PRESSURE, 05/24/17) Red Dye (Verified Allergy, Unknown, VOMITING, 05/24/17) Docusate (Verified Adverse Reaction, Unknown, LIQUID COLACE "VOMITING", ) Ethanol (Verified Adverse Reaction, Unknown, LIQUID COLACE "VOMITING", ) Lorazepam (Verified Adverse Reaction, Unknown, SLEEP WALKING, 05/24/17) Zolpidem (Verified Adverse Reaction, Unknown, SLEEP WALKING, 05/24/17) Home Medications Scheduled Aspirin (Aspirin Ec), 81 MG PO QAM Calcium Carbonate-Vitamin D (Caltrate 600+D 600-400 mg-Unit), 1 TAB PO DAILY Cephalexin Monohydrate (Keflex), 500 MG PO QID Cholecalciferol (Vitamin D), 5,000 UNITS PO DAILY Cyanocobalamin (Vitamin B12), 1 TAB PO QAM Ferrous Sulfate (Ferrous Sulfate), 5 ML PO BID Folic Acid (Folic Acid), 400 MCG PO BID Multivitamins/Minerals (Mvi With Minerals), 1 TAB PO DAILY Probiotic Product (Probiotic), 1 TAB PO DAILY Sulfa/Trimethoprim (Bactrim Ds 800MG/160MG), 1 TAB PO BID Verapamil HCl (Verapamil HCl ER), 180 MG PO QAM Warfarin Sodium (Coumadin), 5 MG PO DAILY [Pain Pump], UD Scheduled PRN Albuterol Hfa (Ventolin Hfa), 2 PUFFS INH Q4 PRN for SOB/Wheezing Dicyclomine HCl (Dicyclomine HCl), 10 MG PO QID PRN for Muscle Spasms Docusate Sodium (Colace), 1 CAP PO BID PRN for Constipation Review of Systems Constitutional: + fever, + chills, + weakness, No sweats, No weight loss, No fatigue Eyes: + problem reported (chronic visual problems) Respiratory: No cough, No sputum, No wheezing, No shortness of breath, No dyspnea on exertion, No dyspnea at rest, No hemoptysis Cardiovascular: No chest pain, No orthopnea, No PND, No edema, No palpitations Abdomen: + nausea, No pain, No vomiting, No diarrhea, No constipation, No GI bleeding Musculoskeletal: + joint pain (L foot), + muscle pain, + swelling Genitourinary - Female: No dysuria, No urinary frequency, No urinary urgency, No urinary incontinence, No urinary retention Neurologic: + weakness, No memory loss, No paralysis, No numbness/tingling, No vertigo, No balance problems Psychiatric: No depression symptoms, No anxiety, No insomnia Endocrine: No fatigue Hematologic / Lymphatic: No abnormal bleeding/bruising Integumentary: + problem reported (left foot redness), No rash Allergic / Immunologic: No environmental allergies, No seasonal allergies Physical Exam Vital Signs Date Time Temp Pulse Resp B/P (MAP) Pulse Ox O2 Delivery O2 Flow Rate FiO2 05/24/17 12:43 36.7 92 18 124/75 100 Room Air General Appearance: WD/WN, no apparent distress Head: normocephalic, atraumatic ENT: hearing grossly normal Neck: supple Respiratory/Chest: chest non-tender, lungs clear, normal breath sounds, no respiratory distress, no accessory muscle use Cardiovascular: no edema, no gallop, no JVD, no murmur, normal peripheral pulses, + tachycardia Abdomen/GI: normal bowel sounds, non tender, soft, no organomegaly, + pertinent finding (surgical scarring noted) Back: no CVA tenderness, no muscle spasm Extremities/Musculoskelatal: no calf tenderness, + swelling, + pertinent finding (L dorsum of the foot is erythematous, slightly edematous, very painful to touch, second digit is partially amputated, third digit with open wound secondary to surgery) Neurologic/Psych: mutuel teller II-XII nml as tested, no motor/sensory deficits, alert, normal mood/affect, oriented x 3 Skin: normal color Lymphatic: no adenopathy Diagnostics Laboratory Results Results Past 24 Hours Test 05/24/17 14:02 05/24/17 14:09 Range/Units White Blood Count 11.82 4.8-10.8 K/uL Red Blood Count 4.62 4.2-5.4 M/uL Hemoglobin 13.1 12.0-16.0 g/dL Hematocrit 39.2 37-47 % Mean Corpuscular Volume 84.8 80-100 fL Mean Corpuscular Hemoglobin 28.4 25-34 pg Mean Corpuscular Hemoglobin Concent 33.4 32-36 g/dl Platelet Count 196 130-400 K/uL Mean Platelet Volume 10.2 7.4-10.4 fL Neutrophils (%) (Auto) 75.1 % Lymphocytes (%) (Auto) 14.3 % Monocytes (%) (Auto) 9.7 % Eosinophils (%) (Auto) 0.5 % Basophils (%) (Auto) 0.2 % Neutrophils # (Auto) 8.88 1.4-6.5 K/uL Lymphocytes # (Auto) 1.69 1.2-3.4 K/uL Monocytes # (Auto) 1.15 0.11-0.59 K/uL Eosinophils # (Auto) 0.06 0-0.5 K/uL Basophils # (Auto) 0.02 0-0.2 K/uL RDW Standard Deviation 40.9 36.4-46.3 fL RDW Coefficient of Variation 13.3 11.5-14.5 % Immature Granulocyte % (Auto) 0.2 % Immature Granulocyte # (Auto) 0.02 0.00-0.02 K/uL Bedside Lactic Acid Venous 1.14 0.90-1.70 mmol/L Microbiology Results 05/24/17 Blood Culture, Received Pending 05/24/17 Blood Culture, Received Pending Diagnostic Radiology L LOWER EXTREMITY WITHOUT CLINICAL HISTORY: 61 years-old Female presenting with poss osteo, left foot. TECHNIQUE: Multidetector CT of the left foot was performed without the use of intravenous contrast. IV contrast: None. A dose lowering technique was used consistent with the principles of ALARA (as low as reasonably achievable). COMPARISON: Plain radiographs from 05/23/2017. CT DOSE (mGy.cm): The estimated cumulative dose is 191.27 mGy.cm. FINDINGS: Printing Services Coordinator topogram: Unremarkable. Achilles tendon anchor noted in the calcaneus. Thickening of the distal Achilles tendon suggested. Bone spur at the inferior calcaneus. Ankle mortise intact. Plate and screw fixation across the first metatarsophalangeal articulation with a transarticular screw also in place. Irregularity of the head of the first metatarsal and base of the proximal phalanx of the first toe with loss of joint space, likely expected arthrodesis findings. Postsurgical changes of resection of the head of the second metatarsal. Absence of the head of the proximal phalanx of the third toe. Diffuse soft tissue swelling of the third toe. Osseous dissolution of the base of the middle phalanx of the third toe may be present. Diffuse subcutaneous edema. No gross hardware complication. No acute fracture. No focal fluid collections allowing for noncontrast technique IMPRESSION: 1. Diffuse subcutaneous edema with focal more significant soft tissue swelling of the third toe suggesting a focal site of infection. Additionally, osseous dissolution of the base of the middle phalanx of the third toe. The absence of the head of the proximal phalanx of the third toe may represent postsurgical change. Findings remain suspicious for osteomyelitis of the third toe. 2. Postsurgical changes as above. No hardware complication or acute osseous injury. Impression Assessment and Plan This is a 61 year old female with a PMH of multiple foot problems and surgeries including neuroma surgery, multiple hammer toe surgeries, neuropathy and neuropathic pain s/p pain pump (morphine + baclofen) presents with L foot infection L foot cellulitis and possible osteomyelitis CT on 05/24 - possible osteomyelitis of the third digit of the L foot repeat CT pending MRI could not be performed due to pain pump cultures on 05/24 suggest staph Aureus repeat cultures pending will cover with Vancomycin and Cefepime ID consulted may need ortho pending CT of the LLE wound care consulted Zinc added, continue multivitamin and minerals I took her off of her Coumadin, which was for DVT ppx - placed her on subq heparin INR pending she is non-weightbearing status on the L foot as per ortho notes from outpatient she has a pain pump with morphine and baclofen I'll add Dilaudid PRN for breakthrough pain Hx. of Tachycardia possibly tachyarrhythmias placed on Verapamil, HRs are in the upper 90s and low 100s at baseline No irregular rhythm noted, no chest pain Hx. of Gastric Bypass continue vitamins and mineral supplementation added Zinc supplementation as well Hx. of DM2 no longer on medications due to her weight loss from gastric bypass will check an A1c in AM Hx. of CVA with residual visual disturbances continue aspirin DVT ppx subq heparin FULL CODE VTE Prophylaxis VTE Risk Assessment Done? Y/N: Yes Risk Level: High
[2017-05-24 15:45] VITALS: BP 137/80; PULSE 94; TEMP 36.5; O2SAT 94; Ht 165.1 cm; Wt 96.0 kg
[2017-05-24 16:33] VITALS: BP 137/80; PULSE 94; TEMP 36.5; O2SAT 94
[2017-05-24] MEDS: LACTOBACILLUS ACIDOPHILUS (FLORANEX) TAB PO SCH (17:43)
[2017-05-24] MEDS: DOCUSATE SODIUM 100 MG CAP PO SCH ×2 (17:43→21:07)
[2017-05-24] MEDS: SODIUM CHLORIDE 0.9% 1000ML 1,000 ML IV SCH (17:45)
[2017-05-24] MEDS ORDERED: FERROUS SULFATE ELIX 220MG/5ML PO SCH (17:45)
[2017-05-24] MEDS: HYDROmorphone INJ 1 MG/ML SYR IV PRN ×2 (18:59→23:36)
[2017-05-24] MEDS: FoLIC ACID TAB 400 MCG TAB PO SCH (21:07)
[2017-05-24] MEDS ORDERED: NURSING VERBAL MED ORDER ONE (21:15)
[2017-05-24] MEDS: ACETAMINOPHEN 325 MG TAB PO PRN (21:36)
[2017-05-24] MEDS: HEPARIN SOD 5000 UNIT/0.5 ML CARP SQ SCH (21:42)
[2017-05-24] MEDS ORDERED: VANCOMYCIN INJ 1,500 MG in SODIUM CHLORIDE 0.9% 500ML 500 ML IV SCH (23:00)
[2017-05-24 23:15] VITALS: BP 102/68; PULSE 95; TEMP 36.9; O2SAT 93
[2017-05-25] MEDS: ACETAMINOPHEN 325 MG TAB PO PRN ×2 (01:53→07:54)
[2017-05-25] MEDS ORDERED: CEFEPIME IV 2,000 MG in SYRINGE 0 ML IV SCH (02:00)
[2017-05-25] MEDS: HYDROmorphone INJ 1 MG/ML SYR IV PRN ×4 (04:03→21:40)
[2017-05-25] MEDS: HEPARIN SOD 5000 UNIT/0.5 ML CARP SQ SCH ×3 (05:57→21:41)
[2017-05-25] MEDS: SODIUM CHLORIDE 0.9% 1000ML 1,000 ML IV SCH ×2 (05:58→19:38)
[2017-05-25 07:06] LABS: HEMATOCRIT 36.2 % (37-47); HEMOGLOBIN 11.6 g/dL (12.0-16.0); MEAN CORPUSCULAR HEMOGLOBIN 27.6 pg (25-34); MEAN PLATELET VOLUME 10.3 fL (7.4-10.4); PLATELET COUNT 182 K/uL (130-400); RED CELL DISTRIBUTION WIDTH CV 13.7 % (11.5-14.5); RED CELL DISTRIBUTION WIDTH SD 43.4 fL (36.4-46.3); WHITE BLOOD COUNT 7.15 K/uL (4.8-10.8)
[2017-05-25 07:07] VITALS: BP 110/78; PULSE 79; TEMP 36.5; O2SAT 97
[2017-05-25 07:14] LABS: INR 1.8 (0.9-1.1)
[2017-05-25 07:44] LABS: CREATININE 0.56 mg/dl (0.60-1.20)
[2017-05-25 07:45] LABS: CALCIUM 8.7 mg/dl (8.5-10.1); POTASSIUM 3.7 mmol/L (3.5-5.1)
[2017-05-25] MEDS ORDERED: SODIUM CHLORIDE 0.65% NA SOLN 45 ML (OCEAN) ONE (07:53)
[2017-05-25 07:55] LABS: HEMOGLOBIN A1C 5.5 % (4.5-5.6)
[2017-05-25] MEDS ORDERED: NURSING DECISION MEDICATION ORDER SCH (08:00)
[2017-05-25] MEDS ORDERED: SODIUM CHLORIDE 0.65% NA SOLN 45 ML (OCEAN) PRN (08:00)
--- NOTE | 2017-05-25 08:27 | Progress Note ---
Progress Note Date of Service May 25, 2017. Progress Note ID Consult Dictated @[id number] A/P: 1. Foot infection - MSSA -Change to ctx, follow blood cultures -Ortho eval pending -thank you
--- NOTE | 2017-05-25 08:38 | INFECT. DISEASE CONSULTATION ---
DATE OF CONSULTATION: 05/25/2017 DATE OF CONSULTATION: 05/25/2017 HISTORY OF PRESENT ILLNESS: This is a 61-year-old female who has a history of foot complications due to neuroma and hammertoes. She does have neuropathy because of this. She states in March she underwent a surgical procedure in [place] where hardware was placed on the foot. She states she was doing well postoperatively but on 05/22/2017 she noticed some loosening of the pin in her third digit. By the this patient had been found in her socks and she also noted some purulent drainage along with this. She also noticed some swelling and pain in the foot. She denies any fevers or chills at home, but also states she did not check her temperature. She came to the hospital on the and a culture was done. She also had a CAT scan of the foot. This was read as possible osteomyelitis. Additionally, her culture is growing MSSA. She was called on the to return to the hospital for admission. She was admitted and placed on vancomycin and cefepime. She did have a mild leukocytosis yesterday of 11. This has improved. Blood cultures were obtained and are pending. She has been afebrile since admission. She does admit to continued pain and swelling in the foot. Orthopedic consultation is pending. She denies any chest pain, cough, shortness of breath, nausea, vomiting or diarrhea. She is tolerating her antibiotics well. All remaining review of systems are reviewed and are negative. PAST MEDICAL HISTORY: Significant for asthma, history of CVA, depression, type 2 diabetes, laminectomy, breast biopsy, cataract surgery, cholecystectomy, gastric bypass. She also had recent foot surgery on 04/29/2017 as stated above. SOCIAL HISTORY: Significant for history of tobacco use. She denies any alcohol or drug use. ALLERGIES: She has no known drug allergies. Other medication allergies are as listed. CURRENT MEDICATIONS: Include verapamil, aspirin, multivitamins, vitamin D, vitamin B, zinc, Caltrate, iron, cefepime, vancomycin, subQ heparin, folate, Floranex, Colace, Tylenol, Maalox, milk of magnesia, Zofran, Dilaudid, Ventolin, Colace. FAMILY HISTORY: Noncontributory. PHYSICAL EXAMINATION: VITAL SIGNS: She is afebrile, pulse 79, respiratory rate 16, blood pressure 110/78, oxygen saturation is 97% on room air. GENERAL: She is awake, alert and oriented x3. She is in no acute distress. HEAD, EYES, EARS, NOSE, AND THROAT: Mucous membranes are moist. Extraocular muscles are intact. HEART: Regular. LUNGS: Clear bilaterally. ABDOMEN: Soft. EXTREMITIES: There is no lower extremity edema. Examination of the foot reveals significant erythema on the dorsal aspect of the foot. This has not extended beyond the line drawn in the Emergency Room last night. There is no purulent drainage at this time. She does have partial amputation of the second toe. LABORATORY STUDIES: CBC today reveals a white blood cell count of 7.1, hemoglobin 11.6 and platelets are 182. Chemistry panel reveals a sodium of 141, potassium 3.7, chloride 108, bicarb 28, BUN 8, creatinine 0.5. Glucose is 111. Blood cultures are pending. Wound cultures growing MSSA. CT of the foot again shows diffuse subcutaneous edema with soft tissue swelling in the third toe suggesting of a local site infection with questionable osteomyelitis of the third toe. ASSESSMENT AND PLAN: Likely osteomyelitis of the third toe. I will change her to Rocephin based on her previous wound culture and await surgical consultation. Thank you for this consult.
[2017-05-25] MEDS: CEROVITE ADV FORMULA TAB PO SCH (08:53)
[2017-05-25] MEDS: FERROUS SULFATE ELIX 220MG/5ML PO SCH ×2 (08:53→17:31)
[2017-05-25] MEDS: CALCIUM 600MG + VIT D 400 IU TAB PO SCH ×2 (08:54→11:00)
[2017-05-25] MEDS: CYANOCOBALAMIN 500 MCG TAB (VIT B-12) PO SCH (08:54)
[2017-05-25] MEDS: CHOLECALCIFEROL 1000 INTER.UNIT TAB PO SCH (08:54)
[2017-05-25] MEDS: ZINC SULFATE 220 MG CAP PO SCH (08:54)
[2017-05-25] MEDS: DOCUSATE SODIUM 100 MG CAP PO SCH ×2 (08:55→20:45)
[2017-05-25] MEDS: LACTOBACILLUS ACIDOPHILUS (FLORANEX) TAB PO SCH ×3 (08:55→17:31)
[2017-05-25] MEDS: FoLIC ACID TAB 400 MCG TAB PO SCH ×2 (08:55→20:45)
[2017-05-25] MEDS: ASPIRIN 81 MG ECTAB PO SCH (08:55)
[2017-05-25] MEDS ORDERED: CALCIUM 600MG + VIT D 400 IU TAB PO SCH (09:00)
[2017-05-25] MEDS ORDERED: VERAPAMIL HCL 180 MG TABCR PO SCH (09:00)
[2017-05-25] MEDS ORDERED: NON-FORMULARY MEDICATION (Probiotic Product (Probiotic) 1 TAB) PO SCH (09:00)
[2017-05-25] MEDS: CEFTRIAXONE SOD INJ 2,000 MG in DEXTROSE 5% 50ML 50 ML IV SCH (09:02)
--- NOTE | 2017-05-25 13:12 | Progress Note ---
Internal Med Progress Note Date of Service: May 25, 2017. Provider Documentation: SUBJECTIVE: Patient seen and examined at the bedside. She is comfortable. However left dorsalis pedis swollen and warm. OBJECTIVE: General Appearance: no apparent distress Head: normocephalic, atraumatic ENT: hearing grossly normal Neck: supple Respiratory/Chest: chest non-tender, lungs clear, normal breath sounds, no respiratory distress, no accessory muscle use Cardiovascular: no edema, no gallop, no JVD, no murmur, normal peripheral pulses Abdomen/GI: normal bowel sounds, non tender, soft, no organomegaly, + pertinent finding (surgical scarring noted) Back: no CVA tenderness, no muscle spasm Extremities/Musculoskelatal: no calf tenderness, L dorsum of the foot is erythematous, slightly edematous, very painful to touch, second digit is partially amputated, third digit with open wound secondary to surgery Neurologic/Psych: credit 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 Thickening of the distal Achilles tendon suggested. Bone spur at the inferior calcaneus. Ankle mortise intact. Plate and screw fixation across the first metatarsophalangeal articulation with a transarticular screw also in place. Irregularity of the head of the first metatarsal and base of the proximal phalanx of the first toe with loss of joint space, likely expected arthrodesis findings. Postsurgical changes of resection of the head of the second metatarsal. Absence of the head of the proximal phalanx of the third toe. Diffuse soft tissue swelling of the third toe. Osseous dissolution of the base of the middle phalanx of the third toe may be present. Diffuse subcutaneous edema. No gross hardware complication. No acute fracture. No focal fluid collections allowing for noncontrast technique IMPRESSION: 1. Diffuse subcutaneous edema with focal more significant soft tissue swelling of the third toe suggesting a focal site of infection. Additionally, osseous dissolution of the base of the middle phalanx of the third toe. The absence of the head of the proximal phalanx of the third toe may represent postsurgical change. Findings remain suspicious for osteomyelitis of the third toe. 2. Postsurgical changes as above. No hardware complication or acute osseous injury. Initially started on Vancomycin and Cefepime, antibiotics changed to ceftriaxone only as per Infectious Disease [facility] because of previous history of MSSA Wound Care consulted for the left foot was requested - but no current purulent drainage on exam on 05/25/17 Orthopedics consultation requested for a patient with osteomyelitis and history of left foot surgeries Patient had coumadin held on admission by admitting internal medicine hospitalist physician and started subcutaneous heparin for DVT prophylaxis (Patient was recently started on coumadin on 04/29/17 for DVT prophylaxis) History of chronic left foot pain Has a pain pump placed years ago as per patient (morphine and baclofen) Dilaudid PRN for breakthrough pain History of Gastric Bypass continue vitamins and mineral supplementation added Zinc supplementation as well History of DM2 no longer on medications due to her weight loss from gastric bypass History of CVA with residual visual disturbances continue aspirin History of Tachycardia, possibly tachyarrhythmias placed on Verapamil, HRs are in the upper 90s and low 100s at baseline No irregular rhythm noted, no chest pain DVT ppx: subcutaneous heparin FULL CODE Vital Signs: Date Time Temp Pulse Resp B/P (MAP) Pulse Ox O2 Delivery O2 Flow Rate FiO2 05/25/17 07:40 Room Air 05/25/17 07:07 36.5 79 16 110/78 (89) 97 Room Air 05/24/17 23:25 CPAP 05/24/17 23:15 36.9 95 16 102/68 (79) 93 Room Air 05/24/17 16:33 36.5 94 19 137/80 (99) 94 Room Air 05/24/17 15:53 Room Air 05/24/17 15:45 36.5 94 18 137/80 94 Room Air 05/24/17 15:06 70 14 118/74 05/24/17 14:00 102 20 136/70 Lab Results: Results Past 24 Hours Test 05/24/17 14:02 05/24/17 14:09 05/25/17 06:47 Range/Units White Blood Count 11.82 7.15 4.8-10.8 K/uL Red Blood Count 4.62 4.21 4.2-5.4 M/uL Hemoglobin 13.1 11.6 12.0-16.0 g/dL Hematocrit 39.2 36.2 37-47 % Mean Corpuscular Volume 84.8 86.0 80-100 fL Mean Corpuscular Hemoglobin 28.4 27.6 25-34 pg Mean Corpuscular Hemoglobin Concent 33.4 32.0 32-36 g/dl Platelet Count 196 182 130-400 K/uL Mean Platelet Volume 10.2 10.3 7.4-10.4 fL Neutrophils (%) (Auto) 75.1 % Lymphocytes (%) (Auto) 14.3 % Monocytes (%) (Auto) 9.7 % Eosinophils (%) (Auto) 0.5 % Basophils (%) (Auto) 0.2 % Neutrophils # (Auto) 8.88 1.4-6.5 K/uL Lymphocytes # (Auto) 1.69 1.2-3.4 K/uL Monocytes # (Auto) 1.15 0.11-0.59 K/uL Eosinophils # (Auto) 0.06 0-0.5 K/uL Basophils # (Auto) 0.02 0-0.2 K/uL RDW Standard Deviation 40.9 43.4 36.4-46.3 fL RDW Coefficient of Variation 13.3 13.7 11.5-14.5 % Immature Granulocyte % (Auto) 0.2 % Immature Granulocyte # (Auto) 0.02 0.00-0.02 K/uL Prothrombin Time 19.3 18.4 9.0-12.0 SECONDS Prothromb Time International Ratio 1.9 1.8 0.9-1.1 Activated Partial Thromboplast Time 44.6 21.0-31.0 SECONDS Partial Thromboplastin Ratio 1.7 Sodium Level 137 141 136-145 mmol/L Potassium Level 4.1 3.7 3.5-5.1 mmol/L Chloride Level 102 108 98-107 mmol/L Carbon Dioxide Level 28 28 21-32 mmol/L Anion Gap 8.0 5.0 3-11 mmol/L Blood Urea Nitrogen 13 8 7-18 mg/dl Creatinine 0.71 0.56 0.60-1.20 mg/dl Est Creatinine Clear Calc Drug Dose 96.6 122.4 ml/min Estimated GFR () 107.3 117.5 Estimated GFR (Non- 92.6 101.3 BUN/Creatinine Ratio 17.6 14.2 10-20 Random Glucose 95 93 70-99 mg/dl Calcium Level 9.2 8.7 8.5-10.1 mg/dl Total Bilirubin 0.4 0.2-1 mg/dl Aspartate Amino Transf (AST/SGOT) 16 15-37 U/L Alanine Aminotransferase (ALT/SGPT) 18 12-78 U/L Alkaline Phosphatase 136 45-117 U/L Total Protein 7.9 6.4-8.2 gm/dl Albumin 3.4 3.4-5.0 gm/dl Globulin 4.5 2.5-4.0 gm/dl Albumin/Globulin Ratio 0.8 0.9-2 Bedside Lactic Acid Venous 1.14 0.90-1.70 mmol/L Estimated Average Glucose 111 mg/dl Hemoglobin A1c 5.5 4.5-5.6 % Lactic Acid Level 0.7 0.4-2.0 mmol/L Magnesium Level 1.9 1.8-2.4 mg/dl Thyroid Stimulating Hormone (TSH) 1.340 0.300-4.500 uIu/ml Hepatitis C Antibody Screen NEG NEG Microbiology Results 05/24/17 Blood Culture, Received Pending 05/24/17 Blood Culture, Received Pending
[2017-05-25 15:00] VITALS: BP 138/82; PULSE 78; TEMP 36.8; O2SAT 100
[2017-05-25] MEDS: VERAPAMIL HCL 180 MG TABCR PO SCH (20:45)
[2017-05-25 23:39] VITALS: BP 111/78
[2017-05-25 23:40] VITALS: PULSE 95; TEMP 36.9; O2SAT 94
[2017-05-26] MEDS: HYDROmorphone INJ 1 MG/ML SYR IV PRN ×5 (03:11→23:43)
[2017-05-26] MEDS: HEPARIN SOD 5000 UNIT/0.5 ML CARP SQ SCH ×3 (05:36→21:39)
[2017-05-26] MEDS: SODIUM CHLORIDE 0.9% 1000ML 1,000 ML IV SCH (05:36)
--- NOTE | 2017-05-26 07:05 | ORTHOPEDIC CONSULTATION ---
DATE OF CONSULTATION: 05/25/2017 HISTORY OF PRESENT ILLNESS: The patient is a 61-year-old female who has had recent surgery in the [place] area and had surgery on her great toe and a hammertoe surgery of the third toe. She had some previous partial amputation of the second toe in the past. She noted some loosening of the pin. She said the pin basically pulled out of her toe where she had the hammertoe surgery, it was in her sock. She said she had some slight issues, but she thought there was some pus coming out of the toe at that time. She has not had any significant fevers or chills. She had a culture growing MSSA. She has had a CAT scan not definitive for osteomyelitis but for some concern for osteomyelitis of the middle phalanx. My review of that demonstrates there is some irregularity of the middle phalanx proximally, but that is more ill-defined. She has had the distal aspects of the proximal phalanx resected which was likely part of the procedure in a PIP joint type arthroplasty. There is no clear abscess. PAST MEDICAL HISTORY: Positive for asthma, CVA, depression, diabetes, laminectomy, breast biopsy, cataract surgery, cholecystectomy, gastric bypass. SOCIAL HISTORY: She also has history of tobacco use. Denies alcohol or drug use. ALLERGIES: No allergies. LABORATORY DATA: Her white blood cell count is normal at this time. PHYSICAL EXAMINATION: Demonstrates that her left foot, she has some erythema starting around the area of the third toe, extending around dorsum of the foot, extending close to the ankle area. It looks like she is getting wrinkles in the skin so some of the swelling is coming down. She has circumferentially swollen third toe. There is no pus coming out of toe at all. The incision is benign. There is a scab on the dorsum of the PIP joint area. No drainage at all. She has had incision over the great toe where she had her fusion surgery, that is healing well and there is no sign of significant swelling or infection in that area. She has had amputation partially of the second toe. ASSESSMENT: Based on her history of some pus around the pin and a loose pin there is the likelihood that she does have infection extending into the bone. She may have osteomyelitis. The circumferential swelling of the toes is not unusual to have osteomyelitis. I discussed the treatment for osteomyelitis either prolonged IV antibiotics, possibly drainage procedure is no response to IV antibiotics and possible amputation of the toe if she is not responding to IV antibiotics. At this time, I discussed with her we will assess nonoperative management with intravenous antibiotics and if she is not responding, then would consider surgical intervention and if she is responding could continue with antibiotics and send her back to her operative surgeon in [place] for definitive treatment. I discussed with her we would get Dr. Armin Westfall, foot and ankle specialist to get involved at him or do some of the studies and evaluate her in a few days to see her progress.
[2017-05-26 07:31] VITALS: BP 123/65; PULSE 66; TEMP 36.9; O2SAT 94
[2017-05-26] MEDS: ZINC SULFATE 220 MG CAP PO SCH (09:02)
[2017-05-26] MEDS: LACTOBACILLUS ACIDOPHILUS (FLORANEX) TAB PO SCH ×3 (09:03→18:29)
[2017-05-26] MEDS: CEROVITE ADV FORMULA TAB PO SCH (09:03)
[2017-05-26] MEDS: CYANOCOBALAMIN 500 MCG TAB (VIT B-12) PO SCH (09:04)
[2017-05-26] MEDS: CHOLECALCIFEROL 1000 INTER.UNIT TAB PO SCH (09:04)
[2017-05-26] MEDS: ASPIRIN 81 MG ECTAB PO SCH (09:04)
[2017-05-26] MEDS: FoLIC ACID TAB 400 MCG TAB PO SCH ×2 (09:04→21:36)
[2017-05-26] MEDS: FERROUS SULFATE ELIX 220MG/5ML PO SCH ×2 (09:05→18:30)
[2017-05-26] MEDS: CEFTRIAXONE SOD INJ 2,000 MG in DEXTROSE 5% 50ML 50 ML IV SCH (09:11)
[2017-05-26] MEDS: DOCUSATE SODIUM 100 MG CAP PO SCH ×2 (09:20→21:36)
[2017-05-26] MEDS: CALCIUM 600MG + VIT D 400 IU TAB PO SCH (09:20)
--- NOTE | 2017-05-26 10:12 | Clinical Documentation Query ---
CLINICAL DOCUMENTATION QUERY Dr. MARKS, In your clinical opinion is this patient being managed for: ( ) L third toe osteomyelitis and cellulitis due to recent hammertoe surgery ( ) L third toe osteomyelitis and cellulitis unrelated to recent hammertoe surgery ( ) Not Agree ( ) Other explanation of clinical findings (Please Explain) ( x ) Unable to determine (Please Define) ( ) Need to Discuss Unable to determine whether symptoms was from recent surgery The medical record reflects the following clinical findings, treatment, and risk factors. Clinical Indicators:61 yo female presenting with worsening L foot pain and noted to have had a recent operation on the L foot. Treatment: IV vancomycin, IV rocephin, IV cefepime, ID and orthopedic consults, IV fluids, blood cultures pending Risk Factors: recent foot surgery Please clarify and document your clinical opinion in the progress notes and discharge summary. Terms such as "probable", "suspected", "likely", "questionable", "possible", or "still to be ruled out" are acceptable. *Code assignment is based on the provider's documentation of the relationship between the condition and the care or procedure provided/performed. *It is important to note that not all conditions that occur during or following medical care or surgery are classified as complications. *There must be a [id number] relationship between the care provided and the condition, and an indication in the documentation that it is a complication IF IN AGREEMENT, YOU MUST DOCUMENT ABOVE DIAGNOSTIC STATEMENT IN DAILY PROGRESS NOTES AND DISCHARGE SUMMARY. This document is not part of the patient's record. Thank You, Marlyn Gibbons, RN [phone]
[2017-05-26] MEDS ORDERED: VANCOMYCIN TROUGH ONE (10:30)
[2017-05-26] MEDS: ONDANSETRON INJ 2 MG/ML 2 ML VIAL IV PRN (10:36)
[2017-05-26] MEDS: ACETAMINOPHEN 325 MG TAB PO PRN ×2 (10:37→15:44)
--- NOTE | 2017-05-26 13:53 | Progress Note ---
Internal Med Progress Note Date of Service: May 26, 2017. Provider Documentation: SUBJECTIVE: Patient seen and examined at the bedside. Reports that yesterday, she had some drainage of serosanguineous fluid vs pus that was expressed after orthopedic physical exam of left foot. Reports that swelling is less. OBJECTIVE: General Appearance: no apparent distress Head: normocephalic, atraumatic ENT: hearing grossly normal Neck: supple Respiratory/Chest: chest non-tender, lungs clear, normal breath sounds, no respiratory distress, no accessory muscle use Cardiovascular: no edema, no gallop, no JVD, no murmur, normal peripheral pulses Abdomen/GI: normal bowel sounds, non tender, soft, no organomegaly, + pertinent finding (surgical scarring noted) Back: no CVA tenderness, no muscle spasm Extremities/Musculoskelatal: no calf tenderness, L dorsum of the foot is erythematous, slightly edematous, very painful to touch, second digit is partially amputated, third digit with open wound secondary to surgery Neurologic/Psych: arrow point attacher II-XII 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 Thickening of the distal Achilles tendon suggested. Bone spur at the inferior calcaneus. Ankle mortise intact. Plate and screw fixation across the first metatarsophalangeal articulation with a transarticular screw also in place. Irregularity of the head of the first metatarsal and base of the proximal phalanx of the first toe with loss of joint space, likely expected arthrodesis findings. Postsurgical changes of resection of the head of the second metatarsal. Absence of the head of the proximal phalanx of the third toe. Diffuse soft tissue swelling of the third toe. Osseous dissolution of the base of the middle phalanx of the third toe may be present. Diffuse subcutaneous edema. No gross hardware complication. No acute fracture. No focal fluid collections allowing for noncontrast technique IMPRESSION: 1. Diffuse subcutaneous edema with focal more significant soft tissue swelling of the third toe suggesting a focal site of infection. Additionally, osseous dissolution of the base of the middle phalanx of the third toe. The absence of the head of the proximal phalanx of the third toe may represent postsurgical change. Findings remain suspicious for osteomyelitis of the third toe. 2. Postsurgical changes as above. No hardware complication or acute osseous injury. Initially started on Vancomycin and Cefepime, antibiotics changed to ceftriaxone IV q24 hours only as per Infectious Disease Dr. Marshall because of previous history of MSSA As per Infectious Disease Dr. Marshall the patient to need 6 to 8 weeks of ceftriaxone 2 gram q24 hours for treatment of osteomyelitis and patient will be be able to go home with PICC line (ordered for placement on 05/26/17 at [facility]) Wound Care consulted for the left foot was requested - but no current purulent drainage on exam on 05/25/17, cultures sent on 05/26/17 from left foot Orthopedics consultation requested for a patient with osteomyelitis and history of left foot surgeries: Orthopedics service reports no surgical interventions at this time and opting for IV antibiotics for now. Since patient had recent surgery in the [place] area and had surgery on her great toe and a hammertoe surgery of the third toe, Orthopedics service would like the patient to follow up with the surgeon in [place] Patient was recently started on coumadin on 04/29/17 for DVT prophylaxis from her recent surgery Patient had coumadin held on admission to [facility] by admitting internal medicine hospitalist physician and started subcutaneous heparin for DVT prophylaxis Coumadin to be restarted after PICC line placed on 05/26/17 Patient also has other history of pain pump placed in the past, history of gastric bypass, history of CVA, history of tachycardia but these issues generally have been stable during the hospital stay Follow up appointment 06/02/2017 9:20 AM Jp Mckay MD [facility], [facility], [facility], [facility], [facility] for follow up of INR while on Coumadin [facility] Appointments can be scheduled [phone] Vital Signs: Date Time Temp Pulse Resp B/P (MAP) Pulse Ox O2 Delivery O2 Flow Rate FiO2 05/26/17 07:31 36.9 66 16 123/65 (84) 94 Room Air 05/26/17 07:30 Room Air 05/25/17 23:45 Room Air 05/25/17 23:40 36.9 95 18 94 Room Air 05/25/17 23:39 111/78 (89) 05/25/17 15:16 Room Air 05/25/17 15:00 36.8 78 20 138/82 (100) 100 Room Air Lab Results: Microbiology Results 05/26/17 Gram Stain, Received Pending 05/26/17 Wound Culture, Received Pending
--- NOTE | 2017-05-26 15:40 | Orthopedic Progress Note ---
Orthopedic Progress Note Date of Service May 26, 2017. Subjective Reports: feeling well, pain controlled w PO medications, Denies: complaints, chest pain, SOB, nausea / vomiting, light headedness, calf pain Objective calves soft nontender, N/V intact, capillary refill less than 2 sec., incision C /D/I, A&O x3, toes mobile 1st and 3rd toes healing nicely with scabs, no drainage, skin in tact, bandages dry, no odor, mild erythema dorsum foot- looks to be less based on pen markings , cap refill and pulses in tact. Date Time Temp Pulse Resp B/P (MAP) Pulse Ox O2 Delivery O2 Flow Rate FiO2 05/26/17 07:31 36.9 66 16 123/65 (84) 94 Room Air 05/26/17 07:30 Room Air 05/25/17 23:45 Room Air 05/25/17 23:40 36.9 95 18 94 Room Air 05/25/17 23:39 111/78 (89) Assessment & Plan Assessment: Left foot cellulitis, ? osteo. s/p pervious surgery. Clinically improving on IV antibx- On ceftriaxone No surgery at this point, will monitor and have Dr. Westfall follow.
[2017-05-26] MEDS ORDERED: WARFARIN SOD 5 MG TAB PO SCH (16:00)
[2017-05-26] MEDS ORDERED: KETOCONAZOLE 2% CR 15 GM TUBE EXT ONE (16:30)
--- NOTE | 2017-05-26 16:42 | DIAGNOSTIC IMAGING REPORT ---
CHEST 2 VIEWS ROUTINE CLINICAL HISTORY: PICC line placement COMPARISON STUDY: Chest radiograph September 11, 2016. FINDINGS: The tip of the right PICC projects over the distal SVC. There are abdominal surgical clips. There is no pneumothorax or pleural effusion. Cardiomediastinal silhouette is stable. There is no consolidation to suggest pneumonia. Appearance of the chest is unchanged. Lateral view demonstrates a stable compression deformity at the thoracolumbar junction. Intracanalicular catheter is noted. IMPRESSION: 1. Tip of right PICC projects over the distal SVC. 2. No acute cardiopulmonary findings. Electronically signed by: Donald Becker M.D. 05/26/2017 4:41 PM Dictated Date/Time: 05/26/2017 4:40 PM
[2017-05-26 16:48] VITALS: BP 122/70
[2017-05-26 21:28] VITALS: BP 120/70; PULSE 75; O2SAT 93
[2017-05-26] MEDS: VERAPAMIL HCL 180 MG TABCR PO SCH (21:35)
[2017-05-26 23:16] VITALS: BP 115/62; PULSE 76; TEMP 36.5; O2SAT 96
[2017-05-27] MEDS: HEPARIN SOD 5000 UNIT/0.5 ML CARP SQ SCH ×3 (05:16→22:00)
[2017-05-27] MEDS: HYDROmorphone INJ 1 MG/ML SYR IV PRN ×4 (05:17→19:54)
[2017-05-27] MEDS: MAGNESIUM HYDROXIDE SUSP 30 ML UDC PO PRN ×2 (05:28→13:02)
[2017-05-27 05:32] LABS: BASO % 0.3 %; BASO ABS # 0.03 K/uL (0-0.2); EOS % 3.3 %; EOS ABS # 0.31 K/uL (0-0.5); HEMATOCRIT 36.4 % (37-47); HEMOGLOBIN 11.8 g/dL (12.0-16.0); IG# 0.02 K/uL (0.00-0.02); LYMPH % 21.1 %; LYMPH ABS # 1.99 K/uL (1.2-3.4); MEAN CELL VOLUME 85.2 fL (80-100); MEAN CORPUSCULAR HEMOGLOBIN 27.6 pg (25-34); MEAN CORPUSCULAR HGB CONC 32.4 g/dl (32-36); MEAN PLATELET VOLUME 10.2 fL (7.4-10.4); MONO % 8.2 %; MONO ABS # 0.77 K/uL (0.11-0.59); NEUT % 66.9 %; NEUT ABS # 6.32 K/uL (1.4-6.5); PLATELET COUNT 194 K/uL (130-400); RED CELL DISTRIBUTION WIDTH CV 13.3 % (11.5-14.5); RED CELL DISTRIBUTION WIDTH SD 41.5 fL (36.4-46.3); WHITE BLOOD COUNT 9.44 K/uL (4.8-10.8)
[2017-05-27 05:40] LABS: INR 1.2 (0.9-1.1)
[2017-05-27 05:56] LABS: ALBUMIN 2.8 gm/dl (3.4-5.0); CALCIUM 9.1 mg/dl (8.5-10.1); CREATININE 0.61 mg/dl (0.60-1.20); POTASSIUM 3.9 mmol/L (3.5-5.1)
[2017-05-27 05:59] LABS: TOTAL PROTEIN 7.2 gm/dl (6.4-8.2)
[2017-05-27 06:56] VITALS: BP 116/77; PULSE 90; TEMP 37.1; O2SAT 97
[2017-05-27] MEDS: ACETAMINOPHEN 325 MG TAB PO PRN ×2 (07:32→21:29)
[2017-05-27] MEDS: ONDANSETRON INJ 2 MG/ML 2 ML VIAL IV PRN (07:32)
--- NOTE | 2017-05-27 08:28 | Progress Note ---
Subjective Date of Service: May 27, 2017. Subjective pt culture with MSSA, blood cultures negative, for picc and d/c. remains on rocephin, tolerating well. afebrile. No plans for surgery, will likely followup with surgery in [place] post d/c. Problem List Medical Problems: (1) Failure of outpatient treatment Status: Acute (2) Intractable vomiting Status: Acute (3) Malfunction of intrathecal infusion pump Status: Acute (4) Osteomyelitis Status: Acute Objective Vital Signs Date Time Temp Pulse Resp B/P (MAP) Pulse Ox O2 Delivery O2 Flow Rate FiO2 05/27/17 06:56 37.1 90 16 116/77 (90) 97 Room Air 05/26/17 23:35 Room Air 05/26/17 23:16 36.5 76 16 115/62 (79) 96 Room Air 05/26/17 21:28 75 120/70 (87) 93 Room Air 05/26/17 16:48 122/70 (87) 05/26/17 16:00 Room Air Laboratory Results Last 24 Hours Test 05/27/17 05:05 White Blood Count 9.44 K/uL Red Blood Count 4.27 M/uL Hemoglobin 11.8 g/dL Hematocrit 36.4 % Mean Corpuscular Volume 85.2 fL Mean Corpuscular Hemoglobin 27.6 pg Mean Corpuscular Hemoglobin Concent 32.4 g/dl Platelet Count 194 K/uL Mean Platelet Volume 10.2 fL Neutrophils (%) (Auto) 66.9 % Lymphocytes (%) (Auto) 21.1 % Monocytes (%) (Auto) 8.2 % Eosinophils (%) (Auto) 3.3 % Basophils (%) (Auto) 0.3 % Neutrophils # (Auto) 6.32 K/uL Lymphocytes # (Auto) 1.99 K/uL Monocytes # (Auto) 0.77 K/uL Eosinophils # (Auto) 0.31 K/uL Basophils # (Auto) 0.03 K/uL RDW Standard Deviation 41.5 fL RDW Coefficient of Variation 13.3 % Immature Granulocyte % (Auto) 0.2 % Immature Granulocyte # (Auto) 0.02 K/uL Prothrombin Time 12.6 SECONDS Prothromb Time International Ratio 1.2 Sodium Level 138 mmol/L Potassium Level 3.9 mmol/L Chloride Level 104 mmol/L Carbon Dioxide Level 32 mmol/L Anion Gap 2.0 mmol/L Blood Urea Nitrogen 9 mg/dl Creatinine 0.61 mg/dl Est Creatinine Clear Calc Drug Dose 112.4 ml/min Estimated GFR () 114.2 Estimated GFR (Non- 98.5 BUN/Creatinine Ratio 13.8 Random Glucose 91 mg/dl Calcium Level 9.1 mg/dl Total Bilirubin 0.3 mg/dl Aspartate Amino Transf (AST/SGOT) 15 U/L Alanine Aminotransferase (ALT/SGPT) 16 U/L Alkaline Phosphatase 101 U/L Total Protein 7.2 gm/dl Albumin 2.8 gm/dl Globulin 4.4 gm/dl Albumin/Globulin Ratio 0.6 Assessment and Plan (1) Osteomyelitis Assessment & Plan: will continue on roecphin x 6 weeks, tentative stop date 07/05. will need weekly cbc,cmp, esr while on therapy. ok for picc line. will need surgical followup as well. no contraindication to d/c from ID standpoint. (2) Cellulitis of left foot
[2017-05-27] MEDS: FERROUS SULFATE ELIX 220MG/5ML PO SCH ×2 (08:30→17:23)
[2017-05-27] MEDS: ZINC SULFATE 220 MG CAP PO SCH (09:02)
[2017-05-27] MEDS: CALCIUM 600MG + VIT D 400 IU TAB PO SCH (09:02)
[2017-05-27] MEDS: FoLIC ACID TAB 400 MCG TAB PO SCH ×2 (09:02→21:28)
[2017-05-27] MEDS: DOCUSATE SODIUM 100 MG CAP PO SCH ×2 (09:02→21:28)
[2017-05-27] MEDS: CEROVITE ADV FORMULA TAB PO SCH (09:03)
[2017-05-27] MEDS: ASPIRIN 81 MG ECTAB PO SCH (09:03)
[2017-05-27] MEDS: CYANOCOBALAMIN 500 MCG TAB (VIT B-12) PO SCH (09:03)
[2017-05-27] MEDS: CHOLECALCIFEROL 1000 INTER.UNIT TAB PO SCH (09:03)
[2017-05-27] MEDS: LACTOBACILLUS ACIDOPHILUS (FLORANEX) TAB PO SCH ×3 (09:03→17:24)
[2017-05-27] MEDS: KETOCONAZOLE 2% CR 15 GM TUBE EXT SCH (09:07)
[2017-05-27] MEDS: CEFTRIAXONE SOD INJ 2,000 MG in DEXTROSE 5% 50ML 50 ML IV SCH (09:14)
--- NOTE | 2017-05-27 10:12 | Progress Note ---
Orthopedic SOAP Note Subjective Date of Service: May 27, 2017. Additional Notes: toe feels more swollen,patient said had pus drainage yesterday Problem List Medical Problems: (1) Failure of outpatient treatment Status: Acute (2) Intractable vomiting Status: Acute (3) Malfunction of intrathecal infusion pump Status: Acute (4) Osteomyelitis Status: Acute Objective toe swollen and red ,no active drainage , cellulitis of foot improved. Date Time Temp Pulse Resp B/P (MAP) Pulse Ox O2 Delivery O2 Flow Rate FiO2 05/27/17 07:35 Room Air 05/27/17 06:56 37.1 90 16 116/77 (90) 97 Room Air 05/26/17 23:35 Room Air 05/26/17 23:16 36.5 76 16 115/62 (79) 96 Room Air 05/26/17 21:28 75 120/70 (87) 93 Room Air 05/26/17 16:48 122/70 (87) 05/26/17 16:00 Room Air Laboratory Results 24 Hours: Test 05/27/17 05:05 White Blood Count 9.44 K/uL Red Blood Count 4.27 M/uL Hemoglobin 11.8 g/dL Hematocrit 36.4 % Mean Corpuscular Volume 85.2 fL Mean Corpuscular Hemoglobin 27.6 pg Mean Corpuscular Hemoglobin Concent 32.4 g/dl Platelet Count 194 K/uL Mean Platelet Volume 10.2 fL Neutrophils (%) (Auto) 66.9 % Lymphocytes (%) (Auto) 21.1 % Monocytes (%) (Auto) 8.2 % Eosinophils (%) (Auto) 3.3 % Basophils (%) (Auto) 0.3 % Neutrophils # (Auto) 6.32 K/uL Lymphocytes # (Auto) 1.99 K/uL Monocytes # (Auto) 0.77 K/uL Eosinophils # (Auto) 0.31 K/uL Basophils # (Auto) 0.03 K/uL Prothromb Time International Ratio 1.2 Prothrombin Time 12.6 SECONDS Assessment Left foot cellulitis foot cellulitis improved but toe infection not,consider surgical rx now ,Dr Westfall to review case today, possible surgery tomorrow,hold d/c for now pending Dr Westfall review. Plan possible surgery tomorrow
--- NOTE | 2017-05-27 14:56 | Progress Note ---
Internal Med Progress Note Date of Service: May 27, 2017. Provider Documentation: SUBJECTIVE: Patient seen and examined at the bedside. Patient has no acute complaints. Reports that left leg swelling is getting better OBJECTIVE: General Appearance: no apparent distress Head: normocephalic, atraumatic ENT: hearing grossly normal Neck: supple Respiratory/Chest: chest non-tender, lungs clear, normal breath sounds, no respiratory distress, no accessory muscle use Cardiovascular: no edema, no gallop, no JVD, no murmur, normal peripheral pulses Abdomen/GI: normal bowel sounds, non tender, soft, no organomegaly Back: no CVA tenderness, no muscle spasm Extremities/Musculoskelatal: right arm PICC line, no calf tenderness, L dorsum of the foot is slightly edematous, second digit is partially amputated, third digit with open wound secondary to surgery Neurologic/Psych: no motor/sensory deficits, alert, normal mood/affect, oriented x 3 ASSESSMENT & PLAN: This is a 61 year old female with a PMH of multiple foot problems and surgeries including neuroma surgery, multiple hammer toe surgeries, neuropathy and neuropathic pain s/p pain pump (morphine + baclofen) presents with L foot infection / osteomyelitis CT of left lower extremity Achilles tendon anchor noted in the calcaneus. Thickening of the distal Achilles tendon suggested. Bone spur at the inferior calcaneus. Ankle mortise intact. Plate and screw fixation across the first metatarsophalangeal articulation with a transarticular screw also in place. Irregularity of the head of the first metatarsal and base of the proximal phalanx of the first toe with loss of joint space, likely expected arthrodesis findings. Postsurgical changes of resection of the head of the second metatarsal. Absence of the head of the proximal phalanx of the third toe. Diffuse soft tissue swelling of the third toe. Osseous dissolution of the base of the middle phalanx of the third toe may be present. Diffuse subcutaneous edema. No gross hardware complication. No acute fracture. No focal fluid collections allowing for noncontrast technique IMPRESSION: 1. Diffuse subcutaneous edema with focal more significant soft tissue swelling of the third toe suggesting a focal site of infection. Additionally, osseous dissolution of the base of the middle phalanx of the third toe. The absence of the head of the proximal phalanx of the third toe may represent postsurgical change. Findings remain suspicious for osteomyelitis of the third toe. 2. Postsurgical changes as above. No hardware complication or acute osseous injury. Initially started on Vancomycin and Cefepime, antibiotics changed to ceftriaxone IV q24 hours only as per Infectious Disease Dr. Marshall because of previous history of MSSA As per Infectious Disease Dr. Marshall the patient to need 6 weeks of ceftriaxone 2 gram q24 hours for treatment of osteomyelitis no current purulent drainage on exam on 05/25/17, cultures sent on 05/26/17 from left foot with Staph Aureus PICC line placed on 05/26/17 As per orthopedic service note on 05/27/17, patient to get surgery of left foot here at [facility] on 05/28/17 instead of original assessment of IV antibiotic only and then patient to follow up in [place] Patient was recently started on coumadin on 04/29/17 for DVT prophylaxis from her recent surgery Hold Coumadin on 05/27/17 for possible surgery on 05/28/17, check INR, mainatin active type and screen Patient also has other history of pain pump placed in the past, history of gastric bypass, history of CVA, history of tachycardia but these issues generally have been stable during the hospital stay Follow up appointment 06/02/2017 9:20 AM Jp Mckay MD [facility], [facility], [facility], [facility], [facility] for follow up of INR while on Coumadin [facility] Appointments can be scheduled [phone] Vital Signs: Date Time Temp Pulse Resp B/P (MAP) Pulse Ox O2 Delivery O2 Flow Rate FiO2 05/27/17 07:35 Room Air 05/27/17 06:56 37.1 90 16 116/77 (90) 97 Room Air 05/26/17 23:35 Room Air 05/26/17 23:16 36.5 76 16 115/62 (79) 96 Room Air 05/26/17 21:28 75 120/70 (87) 93 Room Air 05/26/17 16:48 122/70 (87) 05/26/17 16:00 Room Air Lab Results: Results Past 24 Hours Test 05/27/17 05:05 Range/Units White Blood Count 9.44 4.8-10.8 K/uL Red Blood Count 4.27 4.2-5.4 M/uL Hemoglobin 11.8 12.0-16.0 g/dL Hematocrit 36.4 37-47 % Mean Corpuscular Volume 85.2 80-100 fL Mean Corpuscular Hemoglobin 27.6 25-34 pg Mean Corpuscular Hemoglobin Concent 32.4 32-36 g/dl Platelet Count 194 130-400 K/uL Mean Platelet Volume 10.2 7.4-10.4 fL Neutrophils (%) (Auto) 66.9 % Lymphocytes (%) (Auto) 21.1 % Monocytes (%) (Auto) 8.2 % Eosinophils (%) (Auto) 3.3 % Basophils (%) (Auto) 0.3 % Neutrophils # (Auto) 6.32 1.4-6.5 K/uL Lymphocytes # (Auto) 1.99 1.2-3.4 K/uL Monocytes # (Auto) 0.77 0.11-0.59 K/uL Eosinophils # (Auto) 0.31 0-0.5 K/uL Basophils # (Auto) 0.03 0-0.2 K/uL RDW Standard Deviation 41.5 36.4-46.3 fL RDW Coefficient of Variation 13.3 11.5-14.5 % Immature Granulocyte % (Auto) 0.2 % Immature Granulocyte # (Auto) 0.02 0.00-0.02 K/uL Prothrombin Time 12.6 9.0-12.0 SECONDS Prothromb Time International Ratio 1.2 0.9-1.1 Sodium Level 138 136-145 mmol/L Potassium Level 3.9 3.5-5.1 mmol/L Chloride Level 104 98-107 mmol/L Carbon Dioxide Level 32 21-32 mmol/L Anion Gap 2.0 3-11 mmol/L Blood Urea Nitrogen 9 7-18 mg/dl Creatinine 0.61 0.60-1.20 mg/dl Est Creatinine Clear Calc Drug Dose 112.4 ml/min Estimated GFR () 114.2 Estimated GFR (Non- 98.5 BUN/Creatinine Ratio 13.8 10-20 Random Glucose 91 70-99 mg/dl Calcium Level 9.1 8.5-10.1 mg/dl Total Bilirubin 0.3 0.2-1 mg/dl Aspartate Amino Transf (AST/SGOT) 15 15-37 U/L Alanine Aminotransferase (ALT/SGPT) 16 12-78 U/L Alkaline Phosphatase 101 45-117 U/L Total Protein 7.2 6.4-8.2 gm/dl Albumin 2.8 3.4-5.0 gm/dl Globulin 4.4 2.5-4.0 gm/dl Albumin/Globulin Ratio 0.6 0.9-2
[2017-05-27 16:00] VITALS: BP 107/72; PULSE 87; TEMP 36.7; O2SAT 94
--- NOTE | 2017-05-27 19:19 | Orthopedic Progress Note ---
Orthopedic Progress Note Date of Service May 27, 2017. Subjective Additional Notes: Continued pain and swelling left 3rd toe. Objective calves soft nontender, capillary refill less than 2 sec., A&O x3, toes mobile Erythema with purulent drainage dorsal 3rd toe. Erythema and edema 1st MTP. Coapted surgical incisions dorsum foot. DP/PT 2/4 B LE. Date Time Temp Pulse Resp B/P (MAP) Pulse Ox O2 Delivery O2 Flow Rate FiO2 05/27/17 16:00 36.7 87 18 107/72 (84) 94 Room Air 05/27/17 16:00 94 Room Air 05/27/17 07:35 Room Air 05/27/17 06:56 37.1 90 16 116/77 (90) 97 Room Air 05/26/17 23:35 Room Air 05/26/17 23:16 36.5 76 16 115/62 (79) 96 Room Air 05/26/17 21:28 75 120/70 (87) 93 Room Air Laboratory Results 24 Hours: Test 05/27/17 05:05 White Blood Count 9.44 K/uL Red Blood Count 4.27 M/uL Hemoglobin 11.8 g/dL Hematocrit 36.4 % Mean Corpuscular Volume 85.2 fL Mean Corpuscular Hemoglobin 27.6 pg Mean Corpuscular Hemoglobin Concent 32.4 g/dl Platelet Count 194 K/uL Mean Platelet Volume 10.2 fL Neutrophils (%) (Auto) 66.9 % Lymphocytes (%) (Auto) 21.1 % Monocytes (%) (Auto) 8.2 % Eosinophils (%) (Auto) 3.3 % Basophils (%) (Auto) 0.3 % Neutrophils # (Auto) 6.32 K/uL Lymphocytes # (Auto) 1.99 K/uL Monocytes # (Auto) 0.77 K/uL Eosinophils # (Auto) 0.31 K/uL Basophils # (Auto) 0.03 K/uL Prothromb Time International Ratio 1.2 Prothrombin Time 12.6 SECONDS Assessment & Plan Assessment: Left foot cellulitis,3rd toe cellulitis. Third toe deep infection with likely osteo middle phalanx 3rd toe. Possible deep infection 1st MTP fusion site. Surgery tomorrow NPO after MN Plan: Surgery tomorrow
[2017-05-27 21:22] VITALS: BP 120/77; PULSE 93
[2017-05-27] MEDS: VERAPAMIL HCL 180 MG TABCR PO SCH (21:28)
[2017-05-27 23:12] VITALS: BP 123/76; PULSE 89; TEMP 36.9; O2SAT 93
[2017-05-28] VITALS (8 sets, daily range): BP systolic 107–130; BP diastolic 64–83; PULSE 70–94; TEMP 36.5–37; O2SAT 92–97
[2017-05-28] MEDS: HYDROmorphone INJ 1 MG/ML SYR IV PRN ×11 (00:05→20:29)
[2017-05-28] MEDS: ACETAMINOPHEN 325 MG TAB PO PRN ×5 (03:34→22:59)
[2017-05-28] MEDS: HEPARIN SOD 5000 UNIT/0.5 ML CARP SQ SCH ×3 (05:49→22:22)
[2017-05-28 05:52] LABS: BASO % 0.4 %; BASO ABS # 0.02 K/uL (0-0.2); EOS % 5.6 %; EOS ABS # 0.32 K/uL (0-0.5); HEMATOCRIT 36.8 % (37-47); HEMOGLOBIN 11.8 g/dL (12.0-16.0); LYMPH % 30.2 %; LYMPH ABS # 1.71 K/uL (1.2-3.4); MEAN CELL VOLUME 86.4 fL (80-100); MEAN CORPUSCULAR HEMOGLOBIN 27.7 pg (25-34); MEAN CORPUSCULAR HGB CONC 32.1 g/dl (32-36); MEAN PLATELET VOLUME 9.6 fL (7.4-10.4); MONO % 9.3 %; MONO ABS # 0.53 K/uL (0.11-0.59); NEUT % 54.5 %; NEUT ABS # 3.09 K/uL (1.4-6.5); PLATELET COUNT 207 K/uL (130-400); RED CELL DISTRIBUTION WIDTH CV 13.5 % (11.5-14.5); RED CELL DISTRIBUTION WIDTH SD 42.7 fL (36.4-46.3); WHITE BLOOD COUNT 5.67 K/uL (4.8-10.8)
[2017-05-28 06:06] LABS: INR 1.3 (0.9-1.1)
[2017-05-28 06:25] LABS: ALBUMIN 2.9 gm/dl (3.4-5.0); CALCIUM 8.9 mg/dl (8.5-10.1); CREATININE 0.56 mg/dl (0.60-1.20); POTASSIUM 4.1 mmol/L (3.5-5.1)
[2017-05-28 06:28] LABS: TOTAL PROTEIN 7.4 gm/dl (6.4-8.2)
[2017-05-28] MEDS: LACTOBACILLUS ACIDOPHILUS (FLORANEX) TAB PO SCH ×3 (07:59→18:39)
[2017-05-28] MEDS: ZINC SULFATE 220 MG CAP PO SCH (08:01)
[2017-05-28] MEDS: CEROVITE ADV FORMULA TAB PO SCH (08:01)
[2017-05-28] MEDS: FERROUS SULFATE ELIX 220MG/5ML PO SCH ×2 (08:01→17:45)
[2017-05-28] MEDS: CHOLECALCIFEROL 1000 INTER.UNIT TAB PO SCH (08:01)
[2017-05-28] MEDS: CYANOCOBALAMIN 500 MCG TAB (VIT B-12) PO SCH (08:01)
[2017-05-28] MEDS: DOCUSATE SODIUM 100 MG CAP PO SCH ×2 (08:02→20:35)
[2017-05-28] MEDS: ASPIRIN 81 MG ECTAB PO SCH (08:02)
[2017-05-28] MEDS: CALCIUM 600MG + VIT D 400 IU TAB PO SCH (08:02)
[2017-05-28] MEDS: FoLIC ACID TAB 400 MCG TAB PO SCH ×2 (08:02→20:35)
[2017-05-28] MEDS: KETOCONAZOLE 2% CR 15 GM TUBE EXT SCH (08:07)
--- NOTE | 2017-05-28 08:42 | Progress Note ---
Subjective Date of Service: May 28, 2017. Subjective pt with increased drainage from foot, for OR today. remains on ctx, afebrile. blood culture negative, wound culture with mssa Problem List Medical Problems: (1) Failure of outpatient treatment Status: Acute (2) Intractable vomiting Status: Acute (3) Malfunction of intrathecal infusion pump Status: Acute (4) Osteomyelitis Status: Acute Objective Vital Signs Date Time Temp Pulse Resp B/P (MAP) Pulse Ox O2 Delivery O2 Flow Rate FiO2 05/28/17 07:27 36.6 70 18 111/70 (84) 96 Room Air 05/28/17 01:51 Room Air 05/27/17 23:12 36.9 89 16 123/76 (92) 93 Room Air 05/27/17 21:22 93 120/77 (91) 05/27/17 16:00 36.7 87 18 107/72 (84) 94 Room Air 05/27/17 16:00 94 Room Air Laboratory Results Item Value Date Time Gram Stain - Final Resulted 05/26/17 1053 Skin Leg Lower Left Blood Culture - Preliminary Resulted 05/24/17 1402 Blood NO GROWTH TO DATE. Blood Culture - Preliminary Resulted 05/24/17 1351 Blood NO GROWTH TO DATE. Last 24 Hours Test 05/28/17 05:29 White Blood Count 5.67 K/uL Red Blood Count 4.26 M/uL Hemoglobin 11.8 g/dL Hematocrit 36.8 % Mean Corpuscular Volume 86.4 fL Mean Corpuscular Hemoglobin 27.7 pg Mean Corpuscular Hemoglobin Concent 32.1 g/dl Platelet Count 207 K/uL Mean Platelet Volume 9.6 fL Neutrophils (%) (Auto) 54.5 % Lymphocytes (%) (Auto) 30.2 % Monocytes (%) (Auto) 9.3 % Eosinophils (%) (Auto) 5.6 % Basophils (%) (Auto) 0.4 % Neutrophils # (Auto) 3.09 K/uL Lymphocytes # (Auto) 1.71 K/uL Monocytes # (Auto) 0.53 K/uL Eosinophils # (Auto) 0.32 K/uL Basophils # (Auto) 0.02 K/uL RDW Standard Deviation 42.7 fL RDW Coefficient of Variation 13.5 % Immature Granulocyte % (Auto) 0.0 % Immature Granulocyte # (Auto) 0.00 K/uL Prothrombin Time 13.1 SECONDS Prothromb Time International Ratio 1.3 Sodium Level 139 mmol/L Potassium Level 4.1 mmol/L Chloride Level 103 mmol/L Carbon Dioxide Level 33 mmol/L Anion Gap 3.0 mmol/L Blood Urea Nitrogen 11 mg/dl Creatinine 0.56 mg/dl Est Creatinine Clear Calc Drug Dose 122.4 ml/min Estimated GFR () 117.5 Estimated GFR (Non- 101.3 BUN/Creatinine Ratio 20.2 Random Glucose 100 mg/dl Calcium Level 8.9 mg/dl Total Bilirubin 0.3 mg/dl Aspartate Amino Transf (AST/SGOT) 16 U/L Alanine Aminotransferase (ALT/SGPT) 19 U/L Alkaline Phosphatase 113 U/L Total Protein 7.4 gm/dl Albumin 2.9 gm/dl Globulin 4.5 gm/dl Albumin/Globulin Ratio 0.6 Assessment and Plan (1) Osteomyelitis Assessment & Plan: will continue on roecphin x 6 weeks, tentative stop date 07/05. will need weekly cbc,cmp, esr while on therapy. ok for picc line. drainage increased, for OR await findings. (2) Cellulitis of left foot
[2017-05-28] MEDS: CEFTRIAXONE SOD INJ 2,000 MG in DEXTROSE 5% 50ML 50 ML IV SCH (08:53)
[2017-05-28] MEDS ORDERED: BUPIVACAINE/EPINEPHRINE 0.5% MPF 1:200,000 30 ML VIAL ONE (15:12)
[2017-05-28] MEDS ORDERED: BACITRACIN 50000 UNIT VIAL ONE (15:12)
[2017-05-28] MEDS ORDERED: BUPIVACAINE 0.5 % 5 MG/1 ML MPF 30ML VIAL ONE (15:16)
[2017-05-28] MEDS ORDERED: LIDOCAINE HCL 2% 2 ML VIAL (20MG/ML) ONE (15:23)
[2017-05-28] MEDS ORDERED: ONDANSETRON INJ 2 MG/ML 2 ML VIAL ONE (15:23)
[2017-05-28] MEDS ORDERED: PROPOFOL IV EMULSION 10 MG/ML 20 ML VIAL IV ONE (15:23)
[2017-05-28] MEDS ORDERED: DEXAMETHASONE SOD INJ 4 MG/ML VIAL ONE (15:23)
[2017-05-28] MEDS ORDERED: FENTANYL CITRATE INJ 50 MCG/1 ML 2 ML VIAL ONE ×2 (15:23→16:55)
[2017-05-28] MEDS ORDERED: MIDAZOLAM HCL 1 MG/ML 2ML VIAL ONE (15:23)
[2017-05-28] MEDS ORDERED: ONDANSETRON INJ 2 MG/ML 2 ML VIAL IV PRN (15:45)
[2017-05-28] MEDS ORDERED: ATROPINE SULFATE 0.1 MG/ML 5ML SYR IV PRN (15:45)
[2017-05-28] MEDS ORDERED: EpHEDrine SULFATE INJ 50 MG/ML AMP IV PRN (15:45)
--- NOTE | 2017-05-28 16:00 | History & Physical Bridge Note ---
H&P Re-Evaluation Bridge Note: I have examined the patient, reviewed the History & Physical and in the interval since the performance of the History & Physical I have noted the following changes of clinical significance: Will require evacuation abscess third toe.
[2017-05-28] MEDS ORDERED: HYDROmorphone INJ 2 MG/ML SYR/VIAL ONE (17:02)
--- NOTE | 2017-05-28 17:20 | [facility] Post Operative Brief Note ---
Immediate Operative Summary Operative Date May 28, 2017. Pre-Operative Diagnosis Left foot osteomyelitis third toe middle phalanx, left third toe abcess Post-Operative Diagnosis Left foot osteomyelitis third toe middle phalanx, osteomyelitis proximal phalanx, left third toe abcess, Tenosynovitis third toe, Necrosis third nailplate, Eschar first metarsophalangeal joint. Procedure(s) Performed Left third toe abcess evacuation, debridement of osteomyelitis left third toe middle and proximal phalanges, tenosynovectomy of third extensor tendon, debridement of eschar first metatarsophalangeal joint, removal of necrotic nail plate third toe Surgeon Dr. Armin Westfall Pickup Driver Surgeon(s) None Estimated Blood Loss 2ml Findings See dict Specimens a. left third toe bone b. aerobic/anaerobic/ gram stain Drains 1/2" iodoform x 1 Anesthesia GLMA Complication(s) None Disposition Recovery Room / PACU
[2017-05-28] MEDS: FENTANYL CITRATE INJ 50 MCG/1 ML 2 ML VIAL IV PRN ×4 (17:22→17:37)
--- NOTE | 2017-05-28 17:50 | DIAGNOSTIC IMAGING REPORT ---
L FOOT MIN 3 VIEWS ROUTINE CLINICAL HISTORY: 61 years-old Female presenting with POST OP LEFT FOOT. TECHNIQUE: Frontal, oblique, and lateral views of the left foot were obtained. COMPARISON: 05/23/2017. FINDINGS: There has been interval placement of an overlying bandage, which does not significantly obscure underlying osseous detail. Postsurgical changes of resection of the head of the second metatarsal and distal phalanx of the second toe. Cortical compression plate and screw fixation and additional transpedicular screw noted across the first metatarsophalangeal joint, evidence of arthrodesis. Increased osteolysis of the diaphysis of the proximal phalanx of the third toe in comparison to prior. Stable to slight interval increase in osteolysis of the middle phalanx of the third toe in comparison to prior. Regional osteopenia in the forefoot. No acute fracture. An anchor is noted in the posterior calcaneus likely from Achilles tendon fixation. Prominent inferior calcaneal bone spur. Diffuse soft tissue swelling in the forefoot. IMPRESSION: Findings suspicious for worsening osteomyelitis of the third toe with increased osteolysis of the diaphysis of the proximal phalanx of the third toe and potentially of the middle phalanx of the third toe. This be better demonstrated with noncontrast MR of the forefoot if there is need for confirmation. Extensive postsurgical change as on prior exam. Electronically signed by: Ashish Balbuena M.D. 05/28/2017 5:49 PM Dictated Date/Time: 05/28/2017 5:44 PM
--- NOTE | 2017-05-28 18:16 | Progress Note ---
Internal Med Progress Note Date of Service: May 28, 2017. Provider Documentation: SUBJECTIVE: Patient seen and examined in the PACU post-op. reports pain of left leg after procedure but no acute distress OBJECTIVE: General Appearance: speaking calmly Head: normocephalic, atraumatic ENT: hearing normal Neck: supple, no JVD Respiratory/Chest: chest non-tender, lungs clear, normal breath sounds, no respiratory distress, no accessory muscle use Cardiovascular: regular heart rate Abdomen/GI: normal bowel sounds, non tender, soft Back: no CVA tenderness, no muscle spasm Extremities/Musculoskelatal: right arm PICC line, left foot in dressing Neurologic/Psych: normal mood/affect, oriented x 3 ASSESSMENT & PLAN: This is a 61 year old female with a PMH of multiple foot problems and surgeries including neuroma surgery, multiple hammer toe surgeries, neuropathy and neuropathic pain s/p pain pump (morphine + baclofen) presents with L foot infection / osteomyelitis CT of left lower extremity Achilles tendon anchor noted in the calcaneus. Thickening of the distal Achilles tendon suggested. Bone spur at the inferior calcaneus. Ankle mortise intact. Plate and screw fixation across the first metatarsophalangeal articulation with a transarticular screw also in place. Irregularity of the head of the first metatarsal and base of the proximal phalanx of the first toe with loss of joint space, likely expected arthrodesis findings. Postsurgical changes of resection of the head of the second metatarsal. Absence of the head of the proximal phalanx of the third toe. Diffuse soft tissue swelling of the third toe. Osseous dissolution of the base of the middle phalanx of the third toe may be present. Diffuse subcutaneous edema. No gross hardware complication. No acute fracture. No focal fluid collections allowing for noncontrast technique IMPRESSION: 1. Diffuse subcutaneous edema with focal more significant soft tissue swelling of the third toe suggesting a focal site of infection. Additionally, osseous dissolution of the base of the middle phalanx of the third toe. The absence of the head of the proximal phalanx of the third toe may represent postsurgical change. Findings remain suspicious for osteomyelitis of the third toe. 2. Postsurgical changes as above. No hardware complication or acute osseous injury. Initially started on Vancomycin and Cefepime, antibiotics changed to ceftriaxone IV q24 hours only as per Infectious Disease Dr. Marshall because of previous history of MSSA As per Infectious Disease Dr. Marshall the patient to need 6 weeks of ceftriaxone 2 gram q24 hours for treatment of osteomyelitis no current purulent drainage on exam on 05/25/17, cultures sent on 05/26/17 from left foot with Staph Aureus which is MSSA PICC line placed on 05/26/17 As per orthopedic service note on 05/27/17, patient to get surgery of left foot here at [facility] on 05/28/17 instead of original assessment of IV antibiotic only and then patient to follow up in [place] "Pre-Operative Diagnosis Left foot osteomyelitis third toe middle phalanx, left third toe abcess Post-Operative Diagnosis Left foot osteomyelitis third toe middle phalanx, osteomyelitis proximal phalanx , left third toe abcess, Tenosynovitis third toe, Necrosis third nailplate, Eschar first metarsophalangeal joint. Procedure(s) Performed Left third toe abcess evacuation, debridement of osteomyelitis left third toe middle and proximal phalanges, tenosynovectomy of third extensor tendon, debridement of eschar first metatarsophalangeal joint, removal of necrotic nail plate third toe" The left third toe bone was sent to the lab for aerobic/anaerobic/ gram stain, awaiting results Patient was recently started on coumadin on 04/29/17 for DVT prophylaxis after previous left foot surgery, will restart this medication tomorrow if not contraindicated post-op Continue pain medications, antibiotics Patient also has other history of pain pump placed in the past, history of gastric bypass, history of CVA, history of tachycardia but these issues generally have been stable during the hospital stay Follow up appointments 06/02/2017 9:20 AM Jp Mckay MD [facility], [facility], [facility], [facility] for follow up of INR while on Coumadin [facility] Appointments can be scheduled [phone] Vital Signs: Date Time Temp Pulse Resp B/P (MAP) Pulse Ox O2 Delivery O2 Flow Rate FiO2 05/28/17 18:11 130/77 05/28/17 18:10 86 15 05/28/17 18:10 83 15 96 05/28/17 18:06 133/76 05/28/17 18:05 88 15 05/28/17 18:05 87 15 97 05/28/17 18:00 86 14 139/94 96 05/28/17 18:00 88 14 05/28/17 17:56 119/82 05/28/17 17:55 90 12 05/28/17 17:55 90 12 93 05/28/17 17:54 36.5 05/28/17 17:51 136/108 05/28/17 17:50 95 22 05/28/17 17:50 103 22 98 05/28/17 17:45 93 14 05/28/17 17:45 94 14 145/90 96 05/28/17 17:41 128/73 05/28/17 17:40 96 21 05/28/17 17:40 94 21 99 05/28/17 17:35 116 25 05/28/17 17:35 116 25 166/99 97 05/28/17 17:31 137/121 05/28/17 17:30 114 29 05/28/17 17:30 112 29 95 05/28/17 17:26 178/94 05/28/17 17:25 116 25 05/28/17 17:25 117 25 100 05/28/17 17:21 146/105 05/28/17 17:20 108 22 05/28/17 17:20 107 22 99 05/28/17 17:16 161/72 05/28/17 17:15 122 24 100 05/28/17 17:15 121 24 05/28/17 17:11 136/92 05/28/17 17:10 119 17 05/28/17 17:10 118 17 99 05/28/17 17:00 36.3 130 26 127/96 97 Oxymask 7 05/28/17 15:14 36.7 82 16 100/80 (87) 96 Room Air 05/28/17 08:00 Room Air 05/28/17 07:27 36.6 70 18 111/70 (84) 96 Room Air 05/28/17 01:51 Room Air 05/27/17 23:12 36.9 89 16 123/76 (92) 93 Room Air 05/27/17 21:22 93 120/77 (91) Lab Results: Results Past 24 Hours Test 05/28/17 05:29 Range/Units White Blood Count 5.67 4.8-10.8 K/uL Red Blood Count 4.26 4.2-5.4 M/uL Hemoglobin 11.8 12.0-16.0 g/dL Hematocrit 36.8 37-47 % Mean Corpuscular Volume 86.4 80-100 fL Mean Corpuscular Hemoglobin 27.7 25-34 pg Mean Corpuscular Hemoglobin Concent 32.1 32-36 g/dl Platelet Count 207 130-400 K/uL Mean Platelet Volume 9.6 7.4-10.4 fL Neutrophils (%) (Auto) 54.5 % Lymphocytes (%) (Auto) 30.2 % Monocytes (%) (Auto) 9.3 % Eosinophils (%) (Auto) 5.6 % Basophils (%) (Auto) 0.4 % Neutrophils # (Auto) 3.09 1.4-6.5 K/uL Lymphocytes # (Auto) 1.71 1.2-3.4 K/uL Monocytes # (Auto) 0.53 0.11-0.59 K/uL Eosinophils # (Auto) 0.32 0-0.5 K/uL Basophils # (Auto) 0.02 0-0.2 K/uL RDW Standard Deviation 42.7 36.4-46.3 fL RDW Coefficient of Variation 13.5 11.5-14.5 % Immature Granulocyte % (Auto) 0.0 % Immature Granulocyte # (Auto) 0.00 0.00-0.02 K/uL Prothrombin Time 13.1 9.0-12.0 SECONDS Prothromb Time International Ratio 1.3 0.9-1.1 Sodium Level 139 136-145 mmol/L Potassium Level 4.1 3.5-5.1 mmol/L Chloride Level 103 98-107 mmol/L Carbon Dioxide Level 33 21-32 mmol/L Anion Gap 3.0 3-11 mmol/L Blood Urea Nitrogen 11 7-18 mg/dl Creatinine 0.56 0.60-1.20 mg/dl Est Creatinine Clear Calc Drug Dose 122.4 ml/min Estimated GFR () 117.5 Estimated GFR (Non- 101.3 BUN/Creatinine Ratio 20.2 10-20 Random Glucose 100 70-99 mg/dl Calcium Level 8.9 8.5-10.1 mg/dl Total Bilirubin 0.3 0.2-1 mg/dl Aspartate Amino Transf (AST/SGOT) 16 15-37 U/L Alanine Aminotransferase (ALT/SGPT) 19 12-78 U/L Alkaline Phosphatase 113 45-117 U/L Total Protein 7.4 6.4-8.2 gm/dl Albumin 2.9 3.4-5.0 gm/dl Globulin 4.5 2.5-4.0 gm/dl Albumin/Globulin Ratio 0.6 0.9-2 Microbiology Results 05/28/17 Gram Stain, Received Pending 05/28/17 Bacterial Culture, Received Pending
--- NOTE | 2017-05-28 18:23 | Anesthesiology Progress Note ---
Anesthesia Post Op Note Date & Time May 28, 2017 at 18:23 Vital Signs Pain Intensity: 4 Vital Signs Past 12 Hours Date Time Temp Pulse Resp B/P (MAP) Pulse Ox O2 Delivery O2 Flow Rate FiO2 05/28/17 18:11 130/77 05/28/17 18:10 86 15 05/28/17 18:10 83 15 96 05/28/17 18:06 133/76 05/28/17 18:05 88 15 05/28/17 18:05 87 15 97 05/28/17 18:00 86 14 139/94 96 05/28/17 18:00 88 14 05/28/17 17:56 119/82 05/28/17 17:55 90 12 05/28/17 17:55 90 12 93 05/28/17 17:54 36.5 05/28/17 17:51 136/108 05/28/17 17:50 95 22 05/28/17 17:50 103 22 98 05/28/17 17:45 93 14 05/28/17 17:45 94 14 145/90 96 05/28/17 17:41 128/73 05/28/17 17:40 96 21 05/28/17 17:40 94 21 99 05/28/17 17:35 116 25 05/28/17 17:35 116 25 166/99 97 05/28/17 17:31 137/121 05/28/17 17:30 114 29 05/28/17 17:30 112 29 95 05/28/17 17:26 178/94 05/28/17 17:25 116 25 05/28/17 17:25 117 25 100 05/28/17 17:21 146/105 05/28/17 17:20 108 22 05/28/17 17:20 107 22 99 05/28/17 17:16 161/72 05/28/17 17:15 122 24 100 05/28/17 17:15 121 24 05/28/17 17:11 136/92 05/28/17 17:10 119 17 05/28/17 17:10 118 17 99 05/28/17 17:00 36.3 130 26 127/96 97 Oxymask 7 05/28/17 15:14 36.7 82 16 100/80 (87) 96 Room Air 05/28/17 08:00 Room Air 05/28/17 07:27 36.6 70 18 111/70 (84) 96 Room Air Notes Mental Status: alert / awake / arousable, participated in evaluation Pt Amnestic to Procedure: Yes Nausea / Vomiting: adequately controlled Pain: adequately controlled Airway Patency, RR, SpO2: stable & adequate BP & HR: stable & adequate Hydration State: stable & adequate Anesthetic Complications: no major complications apparent
[2017-05-28] MEDS: VERAPAMIL HCL 180 MG TABCR PO SCH (20:35)
[2017-05-28] MEDS ORDERED: NURSING VERBAL MED ORDER ONE (21:45)
[2017-05-28] MEDS ORDERED: KETOROLAC TROMETHAMINE 30 MG/ML VIAL IV. STA (22:05)
--- NOTE | 2017-05-28 22:41 | OPERATIVE REPORT ---
DATE OF OPERATION: 05/28/2017 PREOPERATIVE DIAGNOSES: 1. Abscess dorsum left third toe. 2. Osteomyelitis of the left third middle phalanx. POSTOPERATIVE DIAGNOSIS: 1. Abscess left third toe. 2. Osteomyelitis of the left third middle phalanx. 3. Osteomyelitis of the left third proximal phalanx. 4. Tenosynovitis of the third extensor tendon. 5. Necrosis of the third toe nail plate. 6. Eschar of the first metatarsophalangeal joint. PROCEDURE 1. Evacuation of abscess of the left third toe. 2. Debridement osteomyelitis, left third proximal phalanx. 3. Debridement osteomyelitis, left third and middle phalanx. 4. Tenosynovectomy of the third extensor tendon. 5. Debridement, eschar of the first metatarsophalangeal joint. 6. Removal, third toenail plate. SURGEON: Dr. Westfall. SPONGE DIVER: None. ANESTHESIA: General LMA. SPECIMENS: 1. Aerobic, anaerobic, Gram stain. 2. Bone from the third toe for pathological specimen. DRAINS: [id number] iodoform gauze x1. COMPLICATIONS: None. BLOOD LOSS: 2 mL PERTINENT HISTORY: This is a 61-year-old female, who had surgery on April 29 by a lead nuclear medicine technologist in [place], named Dr. Nina. The patient underwent a fusion with allografting and plate fixation of the first metatarsophalangeal joint as well, what appears to be, a DuVries arthroplasty of the left third toe. Apparently, the patient noted redness and swelling of the left third toe with subsequent loosening of the pin. A fixation pin loosened and fell out of the toe. It was being treated by the lead nuclear medicine technologist and the patient then was admitted to [facility] under the medical service and orthopedics was consulted at that time. The patient was noted to have an abscess, per a CT scan, with likely osteomyelitis of the 3rd toe. The patient was then scheduled for surgery as indicated. All potential risks, benefits, complications, alternatives, rehab, potential for incomplete relief of symptoms, need for further surgery, DVT, PE, , persistent pain, swelling, scarring, weakness, neurovascular injury, wound complications, hardware failure, need for removal of hardware, nonunion, malunion, hardware breakage was discussed with the patient. The patient decided to proceed with the procedure as indicated. PROCEDURE: The patient was taken to the operative suite, placed supine on the operating room table. After review of the consent and identification of proper operative site, the patient was anesthetized, LMA was placed. Tourniquet was placed high on the left thigh over cast padding. Left lower extremity was then sterilely prepped and draped in the usual fashion, elevated and partially exsanguinated with an Esmarch bandage from the mid foot proximally and the Esmarch bandage, which was then applied over sterile surgical towel at the level of the ankle. The pneumatic tourniquet of the thigh was not used during the case. A 15-blade scalpel was used to make an incision over the dorsum of the left third toe. There was noted to be erythematous, fusiform swelling of the 3rd toe. The incision was then deepened through the previous incision. A significant amount of purulent thickened material poured forth in the third toe with obvious clear infection. Next, this was cultured, aerobic, anaerobic and Gram stain specimens. After this was evacuated with pulsatile lavage. On an initial basis, there was noted to be significantly softened bone of the third toe, both the proximal and middle phalanges. There had been a prior arthroplasty procedure done; however, the bone was significantly more soft and would be anticipated for such a procedure. This is consistent with osteomyelitis of both the middle and proximal phalanges, which were then debrided sharply with 15-blade scalpel and a rongeur. The bone specimen was then sent for pathological evaluation. Next, the abscess and infection had noted to track into the extensor tendon. There was noted to be hypertrophic, septic tenosynovitis of the third toe. At this point, tenosynovectomy was then performed of the third extensor tendon of the toe. The incision was then extended slightly proximally, proximal to the third metatarsophalangeal joint. At this point, a tenosynovectomy was performed with a rongeur. After this was completed, examination of the dorsal capsule of the third metatarsophalangeal joint was performed. There was no clear indication of violation of the third metatarsophalangeal joint and no abscess or fluid collection within the joint. Next, the joint was then incised and opened. There was noted to be a scant amount of serous discharged from the third metatarsophalangeal joint and no clear evidence of purulence. Next, the pulsatile lavage was then used to cleanse the third toe and dorsum of the foot with 3 liters of pulsatile lavage solution with bacitracin. Once this had run clear, the 1/2-inch iodoform gauze packing was then packed into the arthroplasty site of the third toe, contacting both the proximal and middle phalanges exiting dorsally. The skin was then closed loosely with interrupted 4-0 nylon sutures in a horizontal mattress fashion. Next, the third toe nail plate was noted to have features of necrosis. At this point, this was removed then with a Metzenbaum scissor, revealing a scant amount of purulent discharge under the nail and a relatively healthy-appearing germinal matrix. Next, the eschar over the first metatarsophalangeal joint was noted to be hypertrophic and with a scant amount of purulence under the corner of the eschar. This was then unroofed and debrided with a Metzenbaum scissor. There was no direct communication and no further evidence of purulence of the first metatarsophalangeal joint. No pin holes and no penetration into the first metatarsophalangeal joint. Otherwise, the joint appeared to be a benign healing fusion site of the first metatarsophalangeal joint with no local erythema, purulence, fluctuance or proximal streaking. Dorsalis pedis and posterior tibial pulses were diminished due to use of the tourniquet. At this point, a sterile, lightly compressive dressing was applied to the left foot third toe. The tourniquet was released, pulses did return with brisk capillary refill of the left foot, both the Dorsalis pedis and posterior pulses are noted to be 2/4. The proximal tourniquet was removed. The patient was awakened and taken to recovery in stable condition. I attest to the content of the Intraoperative Record and any orders documented therein. Any exception s are noted below.
[2017-05-28] MEDS: MAGNESIUM HYDROXIDE SUSP 30 ML UDC PO PRN (23:03)
[2017-05-29] MEDS: HYDROmorphone INJ 1 MG/ML SYR IV PRN ×4 (00:33→13:04)
[2017-05-29 05:33] LABS: BASO % 0.1 %; BASO ABS # 0.01 K/uL (0-0.2); EOS % 0.1 %; EOS ABS # 0.01 K/uL (0-0.5); HEMATOCRIT 37.9 % (37-47); HEMOGLOBIN 12.1 g/dL (12.0-16.0); IG# 0.02 K/uL (0.00-0.02); LYMPH % 17.9 %; LYMPH ABS # 1.24 K/uL (1.2-3.4); MEAN CELL VOLUME 86.1 fL (80-100); MEAN CORPUSCULAR HEMOGLOBIN 27.5 pg (25-34); MEAN CORPUSCULAR HGB CONC 31.9 g/dl (32-36); MEAN PLATELET VOLUME 9.3 fL (7.4-10.4); MONO % 5.1 %; MONO ABS # 0.35 K/uL (0.11-0.59); NEUT % 76.5 %; NEUT ABS # 5.28 K/uL (1.4-6.5); PLATELET COUNT 198 K/uL (130-400); RED CELL DISTRIBUTION WIDTH CV 13.2 % (11.5-14.5); RED CELL DISTRIBUTION WIDTH SD 41.6 fL (36.4-46.3); WHITE BLOOD COUNT 6.91 K/uL (4.8-10.8)
[2017-05-29] MEDS: HEPARIN SOD 5000 UNIT/0.5 ML CARP SQ SCH ×3 (05:43→20:55)
[2017-05-29 06:01] LABS: ALBUMIN 2.9 gm/dl (3.4-5.0); CALCIUM 9.2 mg/dl (8.5-10.1); CREATININE 0.73 mg/dl (0.60-1.20); POTASSIUM 4.1 mmol/L (3.5-5.1)
[2017-05-29 06:04] LABS: TOTAL PROTEIN 7.6 gm/dl (6.4-8.2)
[2017-05-29 07:24] VITALS: BP 116/69; PULSE 74; TEMP 36.3; O2SAT 93
[2017-05-29] MEDS: ACETAMINOPHEN 325 MG TAB PO PRN ×2 (07:49→18:11)
[2017-05-29] MEDS: CEFTRIAXONE SOD INJ 2,000 MG in DEXTROSE 5% 50ML 50 ML IV SCH (08:57)
[2017-05-29] MEDS: CHOLECALCIFEROL 1000 INTER.UNIT TAB PO SCH (08:58)
[2017-05-29] MEDS: LACTOBACILLUS ACIDOPHILUS (FLORANEX) TAB PO SCH ×3 (08:58→18:17)
[2017-05-29] MEDS: FERROUS SULFATE ELIX 220MG/5ML PO SCH ×3 (08:59→17:45)
--- NOTE | 2017-05-29 08:59 | Orthopedic Progress Note ---
Orthopedic Progress Note Date of Service May 29, 2017. Subjective Post OP Day: 1 Reports: feeling well, pain controlled w PO medications, Denies: complaints, chest pain, SOB, nausea / vomiting, light headedness, calf pain Objective calves soft nontender, N/V intact, capillary refill less than 2 sec., dressing C /D/I, A&O x3, toes mobile Date Time Temp Pulse Resp B/P (MAP) Pulse Ox O2 Delivery O2 Flow Rate FiO2 05/29/17 07:45 Room Air 05/29/17 07:24 36.3 74 19 116/69 (85) 93 Room Air 05/28/17 23:30 Room Air 05/28/17 23:04 36.5 82 16 112/73 (86) 94 Room Air 05/28/17 21:32 36.8 85 17 127/74 (91) 94 Room Air 05/28/17 20:30 37.0 83 17 107/64 (78) 92 Room Air 05/28/17 19:30 36.7 94 17 108/72 (84) 96 Room Air 05/28/17 19:10 97 Nasal Cannula 2.0 05/28/17 19:03 97 Nasal Cannula 2.0 05/28/17 18:30 36.7 88 16 130/83 (99) 97 Nasal Cannula 2.0 05/28/17 18:11 130/77 05/28/17 18:10 86 15 05/28/17 18:10 83 15 96 05/28/17 18:06 133/76 05/28/17 18:05 88 15 05/28/17 18:05 87 15 97 05/28/17 18:00 86 14 139/94 96 05/28/17 18:00 88 14 05/28/17 17:56 119/82 05/28/17 17:55 90 12 05/28/17 17:55 90 12 93 05/28/17 17:54 36.5 05/28/17 17:51 136/108 05/28/17 17:50 95 22 05/28/17 17:50 103 22 98 05/28/17 17:45 93 14 05/28/17 17:45 94 14 145/90 96 05/28/17 17:41 128/73 05/28/17 17:40 96 21 05/28/17 17:40 94 21 99 05/28/17 17:35 116 25 05/28/17 17:35 116 25 166/99 97 05/28/17 17:31 137/121 05/28/17 17:30 114 29 05/28/17 17:30 112 29 95 05/28/17 17:26 178/94 05/28/17 17:25 116 25 05/28/17 17:25 117 25 100 05/28/17 17:21 146/105 05/28/17 17:20 108 22 05/28/17 17:20 107 22 99 05/28/17 17:16 161/72 05/28/17 17:15 122 24 100 05/28/17 17:15 121 24 05/28/17 17:11 136/92 05/28/17 17:10 119 17 05/28/17 17:10 118 17 99 05/28/17 17:00 36.3 130 26 127/96 97 Oxymask 7 05/28/17 15:14 36.7 82 16 100/80 (87) 96 Room Air Laboratory Results 24 Hours: Test 05/29/17 05:19 White Blood Count 6.91 K/uL Red Blood Count 4.40 M/uL Hemoglobin 12.1 g/dL Hematocrit 37.9 % Mean Corpuscular Volume 86.1 fL Mean Corpuscular Hemoglobin 27.5 pg Mean Corpuscular Hemoglobin Concent 31.9 g/dl Platelet Count 198 K/uL Mean Platelet Volume 9.3 fL Neutrophils (%) (Auto) 76.5 % Lymphocytes (%) (Auto) 17.9 % Monocytes (%) (Auto) 5.1 % Eosinophils (%) (Auto) 0.1 % Basophils (%) (Auto) 0.1 % Neutrophils # (Auto) 5.28 K/uL Lymphocytes # (Auto) 1.24 K/uL Monocytes # (Auto) 0.35 K/uL Eosinophils # (Auto) 0.01 K/uL Basophils # (Auto) 0.01 K/uL Assessment & Plan Assessment: POD #1, Left third toe abcess evacuation, debridement of osteomyelitis left third toe middle and proximal phalanges, tenosynovectomy of third extensor tendon, debridement of eschar first metatarsophalangeal joint, removal of necrotic nail plate third toe Plan: Disposition- Home w HH, likely with home antibx Await operative gram stain and cultures, recent hx of staph As per ID, currently on Rocephin DVT proph- Heparin and ASA PT/ OT- WBAT in post op shoe Inhouse Planning DVT Prophylaxis: SCDs, ASA, Heparin Drip Discharge Planning Discharge Planning: home with home health Pain Management: Dilaudid, PO Tylenol DVT Prophylaxis: ASA
[2017-05-29] MEDS: KETOCONAZOLE 2% CR 15 GM TUBE EXT SCH (09:00)
[2017-05-29] MEDS: ASPIRIN 81 MG ECTAB PO SCH (09:00)
[2017-05-29] MEDS: CYANOCOBALAMIN 500 MCG TAB (VIT B-12) PO SCH (09:00)
[2017-05-29] MEDS: CEROVITE ADV FORMULA TAB PO SCH (09:00)
[2017-05-29] MEDS: ZINC SULFATE 220 MG CAP PO SCH (09:00)
[2017-05-29] MEDS: CALCIUM 600MG + VIT D 400 IU TAB PO SCH (09:02)
[2017-05-29] MEDS: DOCUSATE SODIUM 100 MG CAP PO SCH ×2 (09:12→20:56)
[2017-05-29] MEDS: FoLIC ACID TAB 400 MCG TAB PO SCH ×2 (09:12→20:56)
[2017-05-29] MEDS: OXYCODONE/ACETAMINOPHEN 10/325MG TAB PO PRN ×2 (14:06→19:29)
--- NOTE | 2017-05-29 14:26 | Progress Note ---
Internal Med Progress Note Date of Service: May 29, 2017. Provider Documentation: SUBJECTIVE: Patient seen and examined at bedside on medicine conner. Patient expresses concerns in regards for pain control and awaiting surgical wound results OBJECTIVE: General Appearance: speaking calmly Head: normocephalic, atraumatic ENT: hearing normal Neck: supple, no JVD Respiratory/Chest: chest non-tender, lungs clear, normal breath sounds, no respiratory distress, no accessory muscle use Cardiovascular: regular heart rate Abdomen/GI: normal bowel sounds, non tender, soft Back: no CVA tenderness, no muscle spasm Extremities/Musculoskelatal: right arm PICC line, left foot in ice pack Neurologic/Psych: normal mood/affect, oriented x 3 ASSESSMENT & PLAN: This is a 61 year old female with a PMH of multiple foot problems and surgeries including neuroma surgery, multiple hammer toe surgeries, neuropathy and neuropathic pain s/p pain pump (morphine + baclofen) presents with L foot infection / osteomyelitis CT of left lower extremity Achilles tendon anchor noted in the calcaneus. Thickening of the distal Achilles tendon suggested. Bone spur at the inferior calcaneus. Ankle mortise intact. Plate and screw fixation across the first metatarsophalangeal articulation with a transarticular screw also in place. Irregularity of the head of the first metatarsal and base of the proximal phalanx of the first toe with loss of joint space, likely expected arthrodesis findings. Postsurgical changes of resection of the head of the second metatarsal. Absence of the head of the proximal phalanx of the third toe. Diffuse soft tissue swelling of the third toe. Osseous dissolution of the base of the middle phalanx of the third toe may be present. Diffuse subcutaneous edema. No gross hardware complication. No acute fracture. No focal fluid collections allowing for noncontrast technique IMPRESSION: 1. Diffuse subcutaneous edema with focal more significant soft tissue swelling of the third toe suggesting a focal site of infection. Additionally, osseous dissolution of the base of the middle phalanx of the third toe. The absence of the head of the proximal phalanx of the third toe may represent postsurgical change. Findings remain suspicious for osteomyelitis of the third toe. 2. Postsurgical changes as above. No hardware complication or acute osseous injury. Initially started on Vancomycin and Cefepime, antibiotics changed to ceftriaxone IV q24 hours only as per Infectious Disease Dr. Marshall because of previous history of MSSA As per Infectious Disease Dr. Marshall the patient to need 6 weeks of ceftriaxone 2 gram q24 hours for treatment of osteomyelitis no current purulent drainage on exam on 05/25/17, cultures sent on 05/26/17 from left foot with Staph Aureus which is MSSA PICC line placed on 05/26/17 Procedure(s) Performed on 05/28/17 by orthopedics Left third toe abscess evacuation, debridement of osteomyelitis left third toe middle and proximal phalanges, tenosynovectomy of third extensor tendon, debridement of eschar first metatarsophalangeal joint, removal of necrotic nail plate third toe" Post-Operative Diagnosis Left foot osteomyelitis third toe middle phalanx, osteomyelitis proximal phalanx , left third toe abcess, Tenosynovitis third toe, Necrosis third nailplate, Eschar first metarsophalangeal joint. The left third toe bone was sent to the lab for aerobic/anaerobic/ gram stain, awaiting results Patient was recently started on coumadin on 04/29/17 for DVT prophylaxis after previous left foot surgery, will restart this medication tomorrow if not contraindicated post-op Continue pain medications, antibiotics Patient also has other history of pain pump placed in the past, history of gastric bypass, history of CVA, history of tachycardia but these issues generally have been stable during the hospital stay Disposition: Patient remains in hospital today for pain control s/p orthopedic procedure. Also waiting pathology of surgical specimen to see if this will change outpatient antibiotics Follow up appointments 06/02/2017 9:20 AM Jp Mckay MD [facility], [facility], [facility], [facility] for follow up of INR while on Coumadin [facility] Appointments can be scheduled [phone] Vital Signs: Date Time Temp Pulse Resp B/P (MAP) Pulse Ox O2 Delivery O2 Flow Rate FiO2 05/29/17 07:45 Room Air 05/29/17 07:24 36.3 74 19 116/69 (85) 93 Room Air 05/28/17 23:30 Room Air 05/28/17 23:04 36.5 82 16 112/73 (86) 94 Room Air 05/28/17 21:32 36.8 85 17 127/74 (91) 94 Room Air 05/28/17 20:30 37.0 83 17 107/64 (78) 92 Room Air 05/28/17 19:30 36.7 94 17 108/72 (84) 96 Room Air 05/28/17 19:10 97 Nasal Cannula 2.0 05/28/17 19:03 97 Nasal Cannula 2.0 05/28/17 18:30 36.7 88 16 130/83 (99) 97 Nasal Cannula 2.0 05/28/17 18:11 130/77 05/28/17 18:10 86 15 05/28/17 18:10 83 15 96 05/28/17 18:06 133/76 05/28/17 18:05 88 15 05/28/17 18:05 87 15 97 05/28/17 18:00 86 14 139/94 96 05/28/17 18:00 88 14 05/28/17 17:56 119/82 05/28/17 17:55 90 12 05/28/17 17:55 90 12 93 05/28/17 17:54 36.5 05/28/17 17:51 136/108 05/28/17 17:50 95 22 05/28/17 17:50 103 22 98 05/28/17 17:45 93 14 05/28/17 17:45 94 14 145/90 96 05/28/17 17:41 128/73 05/28/17 17:40 96 21 05/28/17 17:40 94 21 99 05/28/17 17:35 116 25 05/28/17 17:35 116 25 166/99 97 05/28/17 17:31 137/121 05/28/17 17:30 114 29 05/28/17 17:30 112 29 95 05/28/17 17:26 178/94 05/28/17 17:25 116 25 05/28/17 17:25 117 25 100 05/28/17 17:21 146/105 05/28/17 17:20 108 22 05/28/17 17:20 107 22 99 05/28/17 17:16 161/72 05/28/17 17:15 122 24 100 05/28/17 17:15 121 24 05/28/17 17:11 136/92 05/28/17 17:10 119 17 05/28/17 17:10 118 17 99 05/28/17 17:00 36.3 130 26 127/96 97 Oxymask 7 05/28/17 15:14 36.7 82 16 100/80 (87) 96 Room Air Lab Results: Results Past 24 Hours Test 05/29/17 05:19 Range/Units White Blood Count 6.91 4.8-10.8 K/uL Red Blood Count 4.40 4.2-5.4 M/uL Hemoglobin 12.1 12.0-16.0 g/dL Hematocrit 37.9 37-47 % Mean Corpuscular Volume 86.1 80-100 fL Mean Corpuscular Hemoglobin 27.5 25-34 pg Mean Corpuscular Hemoglobin Concent 31.9 32-36 g/dl Platelet Count 198 130-400 K/uL Mean Platelet Volume 9.3 7.4-10.4 fL Neutrophils (%) (Auto) 76.5 % Lymphocytes (%) (Auto) 17.9 % Monocytes (%) (Auto) 5.1 % Eosinophils (%) (Auto) 0.1 % Basophils (%) (Auto) 0.1 % Neutrophils # (Auto) 5.28 1.4-6.5 K/uL Lymphocytes # (Auto) 1.24 1.2-3.4 K/uL Monocytes # (Auto) 0.35 0.11-0.59 K/uL Eosinophils # (Auto) 0.01 0-0.5 K/uL Basophils # (Auto) 0.01 0-0.2 K/uL RDW Standard Deviation 41.6 36.4-46.3 fL RDW Coefficient of Variation 13.2 11.5-14.5 % Immature Granulocyte % (Auto) 0.3 % Immature Granulocyte # (Auto) 0.02 0.00-0.02 K/uL Sodium Level 138 136-145 mmol/L Potassium Level 4.1 3.5-5.1 mmol/L Chloride Level 101 98-107 mmol/L Carbon Dioxide Level 33 21-32 mmol/L Anion Gap 4.0 3-11 mmol/L Blood Urea Nitrogen 11 7-18 mg/dl Creatinine 0.73 0.60-1.20 mg/dl Est Creatinine Clear Calc Drug Dose 93.9 ml/min Estimated GFR () 103.8 Estimated GFR (Non- 89.5 BUN/Creatinine Ratio 14.5 10-20 Random Glucose 152 70-99 mg/dl Calcium Level 9.2 8.5-10.1 mg/dl Total Bilirubin 0.2 0.2-1 mg/dl Aspartate Amino Transf (AST/SGOT) 36 15-37 U/L Alanine Aminotransferase (ALT/SGPT) 34 12-78 U/L Alkaline Phosphatase 130 45-117 U/L Total Protein 7.6 6.4-8.2 gm/dl Albumin 2.9 3.4-5.0 gm/dl Globulin 4.7 2.5-4.0 gm/dl Albumin/Globulin Ratio 0.6 0.9-2 Microbiology Results 05/28/17 Gram Stain - Final, Resulted 05/28/17 Bacterial Culture, Resulted Pending
[2017-05-29] MEDS ORDERED: NURSING VERBAL MED ORDER ONE (15:00)
[2017-05-29 15:29] VITALS: BP 113/72; PULSE 79; TEMP 36.4; O2SAT 94
[2017-05-29] MEDS: OXYCODONE HCL IR 5 MG TAB (IMMEDIATE RELEASE) PO PRN ×2 (15:58→21:01)
[2017-05-29] MEDS ORDERED: WARFARIN SOD 5 MG TAB PO SCH (16:00)
[2017-05-29] MEDS: ONDANSETRON INJ 2 MG/ML 2 ML VIAL IV PRN (18:07)
[2017-05-29] MEDS: VERAPAMIL HCL 180 MG TABCR PO SCH (20:56)
[2017-05-29 21:00] VITALS: BP 138/87; PULSE 77
[2017-05-29 23:03] VITALS: BP 112/72; PULSE 76; TEMP 36.5; O2SAT 92
[2017-05-30] MEDS: OXYCODONE/ACETAMINOPHEN 10/325MG TAB PO PRN ×2 (00:20→05:48)
[2017-05-30] MEDS: MAGNESIUM HYDROXIDE SUSP 30 ML UDC PO PRN (00:26)
[2017-05-30] MEDS: OXYCODONE HCL IR 5 MG TAB (IMMEDIATE RELEASE) PO PRN ×3 (01:38→13:27)
[2017-05-30] MEDS: HEPARIN SOD 5000 UNIT/0.5 ML CARP SQ SCH (05:49)
[2017-05-30 06:34] LABS: BASO % 0.4 %; BASO ABS # 0.03 K/uL (0-0.2); EOS % 4.2 %; EOS ABS # 0.31 K/uL (0-0.5); HEMATOCRIT 37.1 % (37-47); HEMOGLOBIN 11.8 g/dL (12.0-16.0); IG# 0.02 K/uL (0.00-0.02); LYMPH % 45.7 %; LYMPH ABS # 3.38 K/uL (1.2-3.4); MEAN CELL VOLUME 87.1 fL (80-100); MEAN CORPUSCULAR HEMOGLOBIN 27.7 pg (25-34); MEAN CORPUSCULAR HGB CONC 31.8 g/dl (32-36); MEAN PLATELET VOLUME 9.2 fL (7.4-10.4); MONO % 6.4 %; MONO ABS # 0.47 K/uL (0.11-0.59); NEUT ABS # 3.18 K/uL (1.4-6.5); PLATELET COUNT 183 K/uL (130-400); RED CELL DISTRIBUTION WIDTH CV 13.5 % (11.5-14.5); RED CELL DISTRIBUTION WIDTH SD 42.7 fL (36.4-46.3); WHITE BLOOD COUNT 7.39 K/uL (4.8-10.8)
[2017-05-30 06:45] LABS: INR 1.1 (0.9-1.1)
[2017-05-30] MEDS ORDERED: NURSING VERBAL MED ORDER ONE ×2 (07:00→11:30)
[2017-05-30 07:16] LABS: ALBUMIN 3.1 gm/dl (3.4-5.0); CALCIUM 9.3 mg/dl (8.5-10.1); CREATININE 0.67 mg/dl (0.60-1.20); POTASSIUM 4.4 mmol/L (3.5-5.1); TOTAL PROTEIN 7.9 gm/dl (6.4-8.2)
[2017-05-30 07:37] VITALS: BP 131/83; PULSE 93; TEMP 36.5; O2SAT 92
[2017-05-30] MEDS: CEFTRIAXONE SOD INJ 2,000 MG in DEXTROSE 5% 50ML 50 ML IV SCH (08:27)
[2017-05-30] MEDS: FoLIC ACID TAB 400 MCG TAB PO SCH (08:27)
[2017-05-30] MEDS: CHOLECALCIFEROL 1000 INTER.UNIT TAB PO SCH (08:28)
[2017-05-30] MEDS: CALCIUM 600MG + VIT D 400 IU TAB PO SCH (08:28)
[2017-05-30] MEDS: ZINC SULFATE 220 MG CAP PO SCH (08:28)
[2017-05-30] MEDS: LACTOBACILLUS ACIDOPHILUS (FLORANEX) TAB PO SCH ×2 (08:29→13:24)
[2017-05-30] MEDS: ASPIRIN 81 MG ECTAB PO SCH (08:29)
[2017-05-30] MEDS: DOCUSATE SODIUM 100 MG CAP PO SCH (08:29)
[2017-05-30] MEDS: CYANOCOBALAMIN 500 MCG TAB (VIT B-12) PO SCH (08:29)
[2017-05-30] MEDS: CEROVITE ADV FORMULA TAB PO SCH (08:29)
[2017-05-30] MEDS: FERROUS SULFATE ELIX 220MG/5ML PO SCH (08:30)
[2017-05-30] MEDS: KETOCONAZOLE 2% CR 15 GM TUBE EXT SCH (08:30)
[2017-05-30 11:19] VITALS: BP 100/64; PULSE 82; O2SAT 96
[2017-05-30] MEDS: ACETAMINOPHEN 325 MG TAB PO PRN (11:21)
[2017-05-30] MEDS ORDERED: HYDROmorphone INJ 1 MG/ML SYR ONE (11:30)
--- NOTE | 2017-05-30 11:34 | Orthopedic Progress Note ---
Orthopedic Progress Note Date of Service May 30, 2017. Subjective Post OP Day: 2 Reports: feeling well, pain controlled w PO medications, Denies: complaints, chest pain, SOB, nausea / vomiting, light headedness, calf pain Objective calves soft nontender, N/V intact, capillary refill less than 2 sec., incision C /D/I, A&O x3, toes mobile incision/ sutures c/d/i, no drainage, minimal erythema. Packing pulled this AM by me. Date Time Temp Pulse Resp B/P (MAP) Pulse Ox O2 Delivery O2 Flow Rate FiO2 05/30/17 11:19 82 16 100/64 (76) 96 Room Air 05/30/17 07:50 Room Air 05/30/17 07:37 36.5 93 20 131/83 (99) 92 Room Air 05/30/17 00:30 Room Air 05/29/17 23:03 36.5 76 16 112/72 (85) 92 Room Air 05/29/17 21:00 77 138/87 (104) 05/29/17 15:45 Room Air 05/29/17 15:29 36.4 79 16 113/72 (86) 94 Room Air Laboratory Results 24 Hours: Test 05/30/17 06:22 White Blood Count 7.39 K/uL Red Blood Count 4.26 M/uL Hemoglobin 11.8 g/dL Hematocrit 37.1 % Mean Corpuscular Volume 87.1 fL Mean Corpuscular Hemoglobin 27.7 pg Mean Corpuscular Hemoglobin Concent 31.8 g/dl Platelet Count 183 K/uL Mean Platelet Volume 9.2 fL Neutrophils (%) (Auto) 43.0 % Lymphocytes (%) (Auto) 45.7 % Monocytes (%) (Auto) 6.4 % Eosinophils (%) (Auto) 4.2 % Basophils (%) (Auto) 0.4 % Neutrophils # (Auto) 3.18 K/uL Lymphocytes # (Auto) 3.38 K/uL Monocytes # (Auto) 0.47 K/uL Eosinophils # (Auto) 0.31 K/uL Basophils # (Auto) 0.03 K/uL Prothromb Time International Ratio 1.1 Prothrombin Time 11.4 SECONDS Assessment & Plan Assessment: POD #2, Left third toe abcess evacuation, debridement of osteomyelitis left third toe middle and proximal phalanges, tenosynovectomy of third extensor tendon, debridement of eschar first metatarsophalangeal joint, removal of necrotic nail plate third toe Plan: Disposition- Home w HH, likely with home antibx today possibly, PICC placed. Await operative gram stain and cultures, recent hx of staph, spoke with Dr. Hampton , he feels she can go home today w Rocephin As per ID, currently on Rocephin DVT proph- Heparin and ASA PT/ OT- WBAT in post op shoe Inhouse Planning DVT Prophylaxis: SCDs, ASA, Heparin Drip Discharge Planning Discharge Planning: home with home health Pain Management: Dilaudid, PO Tylenol DVT Prophylaxis: ASA
--- NOTE | 2017-05-30 11:37 | Consultant Recommendations ---
Leak Patcher Recommendations Date of Service May 30, 2017. Leak Patcher Recommendations S/p I&D 3rd toe and removal nail 05/28/17. Keep dressings clean dry and in tact. Ice/ Elevate as needed. IV antibx as ordered, NO driving Weight bearing as tolerated w choice of assistive device as needed using post op shoe with weight bearing. Follow up with Dr. Westfall next week at [facility], Call for appt.
[2017-05-30] MEDS ORDERED: ACET-1047 PO (12:58)
--- NOTE | 2017-05-30 13:02 | Progress Note ---
Internal Med Progress Note Date of Service: May 30, 2017. Provider Documentation: SUBJECTIVE: Patient seen and examined at bedside on medicine conner. Patient feeling pain is better controlled OBJECTIVE: General Appearance: speaking calmly Head: normocephalic, atraumatic ENT: hearing normal Neck: supple, no JVD Respiratory/Chest: chest non-tender, lungs clear, normal breath sounds, no respiratory distress, no accessory muscle use Cardiovascular: regular heart rate Abdomen/GI: normal bowel sounds, non tender, soft Back: no CVA tenderness, no muscle spasm Extremities/Musculoskelatal: right arm PICC line, left foot in ice pack Neurologic/Psych: normal mood/affect, oriented x 3 ASSESSMENT & PLAN: This is a 61 year old female with a PMH of multiple foot problems and surgeries including neuroma surgery, multiple hammer toe surgeries, neuropathy and neuropathic pain s/p pain pump (morphine + baclofen) presents with L foot infection / osteomyelitis CT of left lower extremity Achilles tendon anchor noted in the calcaneus. Thickening of the distal Achilles tendon suggested. Bone spur at the inferior calcaneus. Ankle mortise intact. Plate and screw fixation across the first metatarsophalangeal articulation with a transarticular screw also in place. Irregularity of the head of the first metatarsal and base of the proximal phalanx of the first toe with loss of joint space, likely expected arthrodesis findings. Postsurgical changes of resection of the head of the second metatarsal. Absence of the head of the proximal phalanx of the third toe. Diffuse soft tissue swelling of the third toe. Osseous dissolution of the base of the middle phalanx of the third toe may be present. Diffuse subcutaneous edema. No gross hardware complication. No acute fracture. No focal fluid collections allowing for noncontrast technique IMPRESSION: 1. Diffuse subcutaneous edema with focal more significant soft tissue swelling of the third toe suggesting a focal site of infection. Additionally, osseous dissolution of the base of the middle phalanx of the third toe. The absence of the head of the proximal phalanx of the third toe may represent postsurgical change. Findings remain suspicious for osteomyelitis of the third toe. 2. Postsurgical changes as above. No hardware complication or acute osseous injury. Initially started on Vancomycin and Cefepime, antibiotics changed to ceftriaxone IV q24 hours only as per Infectious Disease Dr. Marshall because of previous history of MSSA As per Infectious Disease Dr. Marshall the patient to need 6 weeks of ceftriaxone 2 gram q24 hours for treatment of osteomyelitis no current purulent drainage on exam on 05/25/17, cultures sent on 05/26/17 from left foot with Staph Aureus which is MSSA PICC line placed on 05/26/17 Procedure(s) Performed on 05/28/17 by orthopedics Left third toe abscess evacuation, debridement of osteomyelitis left third toe middle and proximal phalanges, tenosynovectomy of third extensor tendon, debridement of eschar first metatarsophalangeal joint, removal of necrotic nail plate third toe" Post-Operative Diagnosis Left foot osteomyelitis third toe middle phalanx, osteomyelitis proximal phalanx , left third toe abcess, Tenosynovitis third toe, Necrosis third nailplate, Eschar first metarsophalangeal joint. The left third toe bone was sent to the lab and grew Staph. Aureus Patient was recently started on coumadin on 04/29/17 for DVT prophylaxis after previous left foot surgery, will restart this medication tomorrow if not contraindicated post-op Continue pain medications, antibiotics Patient also has other history of pain pump placed in the past, history of gastric bypass, history of CVA, history of tachycardia but these issues generally have been stable during the hospital stay Disposition: Discharge home with PICC line for 6 weeks of ceftriaxone 2 gram q24 hours for treatment of osteomyelitis tentative stop date 07/05. Will need weekly cbc,cmp, esr while on therapy and these labs are to be arranged by primary care doctor Follow up appointments 06/01/2017 6:15 PM [facility], [facility] 06/02/2017 9:20 AM Jp Mckay MD [facility], [facility], [facility] for follow up of INR while on Coumadin [facility] Appointments can be scheduled [phone] Orthopedics recommendations S/p I&D 3rd toe and removal nail 05/28/17. Keep dressings clean dry and in tact. Ice/ Elevate as needed. IV antibx as ordered, NO driving Weight bearing as tolerated w choice of assistive device as needed using post op shoe with weight bearing. Follow up with Dr. Westfall next week at [facility], Call for appt. Vital Signs: Date Time Temp Pulse Resp B/P (MAP) Pulse Ox O2 Delivery O2 Flow Rate FiO2 05/30/17 11:19 82 16 100/64 (76) 96 Room Air 05/30/17 07:50 Room Air 05/30/17 07:37 36.5 93 20 131/83 (99) 92 Room Air 05/30/17 00:30 Room Air 05/29/17 23:03 36.5 76 16 112/72 (85) 92 Room Air 05/29/17 21:00 77 138/87 (104) 05/29/17 15:45 Room Air 05/29/17 15:29 36.4 79 16 113/72 (86) 94 Room Air Lab Results: Results Past 24 Hours Test 05/30/17 06:22 Range/Units White Blood Count 7.39 4.8-10.8 K/uL Red Blood Count 4.26 4.2-5.4 M/uL Hemoglobin 11.8 12.0-16.0 g/dL Hematocrit 37.1 37-47 % Mean Corpuscular Volume 87.1 80-100 fL Mean Corpuscular Hemoglobin 27.7 25-34 pg Mean Corpuscular Hemoglobin Concent 31.8 32-36 g/dl Platelet Count 183 130-400 K/uL Mean Platelet Volume 9.2 7.4-10.4 fL Neutrophils (%) (Auto) 43.0 % Lymphocytes (%) (Auto) 45.7 % Monocytes (%) (Auto) 6.4 % Eosinophils (%) (Auto) 4.2 % Basophils (%) (Auto) 0.4 % Neutrophils # (Auto) 3.18 1.4-6.5 K/uL Lymphocytes # (Auto) 3.38 1.2-3.4 K/uL Monocytes # (Auto) 0.47 0.11-0.59 K/uL Eosinophils # (Auto) 0.31 0-0.5 K/uL Basophils # (Auto) 0.03 0-0.2 K/uL RDW Standard Deviation 42.7 36.4-46.3 fL RDW Coefficient of Variation 13.5 11.5-14.5 % Immature Granulocyte % (Auto) 0.3 % Immature Granulocyte # (Auto) 0.02 0.00-0.02 K/uL Prothrombin Time 11.4 9.0-12.0 SECONDS Prothromb Time International Ratio 1.1 0.9-1.1 Sodium Level 138 136-145 mmol/L Potassium Level 4.4 3.5-5.1 mmol/L Chloride Level 101 98-107 mmol/L Carbon Dioxide Level 33 21-32 mmol/L Anion Gap 4.0 3-11 mmol/L Blood Urea Nitrogen 13 7-18 mg/dl Creatinine 0.67 0.60-1.20 mg/dl Est Creatinine Clear Calc Drug Dose 102.3 ml/min Estimated GFR () 110.7 Estimated GFR (Non- 95.5 BUN/Creatinine Ratio 19.4 10-20 Random Glucose 81 70-99 mg/dl Calcium Level 9.3 8.5-10.1 mg/dl Total Bilirubin 0.2 0.2-1 mg/dl Aspartate Amino Transf (AST/SGOT) 33 15-37 U/L Alanine Aminotransferase (ALT/SGPT) 33 12-78 U/L Alkaline Phosphatase 123 45-117 U/L Total Protein 7.9 6.4-8.2 gm/dl Albumin 3.1 3.4-5.0 gm/dl Globulin 4.8 2.5-4.0 gm/dl Albumin/Globulin Ratio 0.6 0.9-2
--- NOTE | 2017-05-30 13:10 | Discharge Instructions ---
Discharge Instructions Date of Service May 30, 2017. Admission Reason for Admission: Cellulitis Of Left Foot; Osteomyelitis Discharge Discharge Diagnosis / Problem: Left foot osteomyelitis third toe, Staphyloccous Aureus Discharge Goals Goal(s): Decrease discomfort, Improve function, Improve disease control Activity Recommendations Activity Limitations: per Instructions/Follow-up section Shower/Bathe: no limitations . Instructions / Follow-Up Instructions / Follow-Up This is a 61 year old female with a PMH of multiple foot problems and surgeries including neuroma surgery, multiple hammer toe surgeries, neuropathy and neuropathic pain s/p pain pump (morphine + baclofen) presents with L foot infection / osteomyelitis CT of left lower extremity Achilles tendon anchor noted in the calcaneus. Thickening of the distal Achilles tendon suggested. Bone spur at the inferior calcaneus. Ankle mortise intact. Plate and screw fixation across the first metatarsophalangeal articulation with a transarticular screw also in place. Irregularity of the head of the first metatarsal and base of the proximal phalanx of the first toe with loss of joint space, likely expected arthrodesis findings. Postsurgical changes of resection of the head of the second metatarsal. Absence of the head of the proximal phalanx of the third toe. Diffuse soft tissue swelling of the third toe. Osseous dissolution of the base of the middle phalanx of the third toe may be present. Diffuse subcutaneous edema. No gross hardware complication. No acute fracture. No focal fluid collections allowing for noncontrast technique IMPRESSION: 1. Diffuse subcutaneous edema with focal more significant soft tissue swelling of the third toe suggesting a focal site of infection. Additionally, osseous dissolution of the base of the middle phalanx of the third toe. The absence of the head of the proximal phalanx of the third toe may represent postsurgical change. Findings remain suspicious for osteomyelitis of the third toe. 2. Postsurgical changes as above. No hardware complication or acute osseous injury. Initially started on Vancomycin and Cefepime, antibiotics changed to ceftriaxone IV q24 hours only as per Infectious Disease Dr. Marshall because of previous history of MSSA As per Infectious Disease Dr. Marshall the patient to need 6 weeks of ceftriaxone 2 gram q24 hours for treatment of osteomyelitis no current purulent drainage on exam on 05/25/17, cultures sent on 05/26/17 from left foot with Staph Aureus which is MSSA PICC line placed on 05/26/17 Procedure(s) Performed on 05/28/17 by orthopedics Left third toe abscess evacuation, debridement of osteomyelitis left third toe middle and proximal phalanges, tenosynovectomy of third extensor tendon, debridement of eschar first metatarsophalangeal joint, removal of necrotic nail plate third toe" Post-Operative Diagnosis Left foot osteomyelitis third toe middle phalanx, osteomyelitis proximal phalanx , left third toe abcess, Tenosynovitis third toe, Necrosis third nailplate, Eschar first metarsophalangeal joint. The left third toe bone was sent to the lab and grew Staph. Aureus Patient was recently started on coumadin on 04/29/17 for DVT prophylaxis after previous left foot surgery, will restart this medication tomorrow if not contraindicated post-op Continue pain medications, antibiotics Patient also has other history of pain pump placed in the past, history of gastric bypass, history of CVA, history of tachycardia but these issues generally have been stable during the hospital stay Disposition: Discharge home with PICC line for 6 weeks of ceftriaxone 2 gram q24 hours for treatment of osteomyelitis tentative stop date 07/05. Will need weekly cbc,cmp, esr while on therapy and these labs are to be arranged by primary care doctor Follow up appointments 06/01/2017 6:15 PM [facility], [facility] 06/02/2017 9:20 AM Jp Mckay MD [facility], [facility], [facility] Scenery for follow up of INR while on Coumadin [facility] Appointments can be scheduled [phone] Orthopedics recommendations S/p I&D 3rd toe and removal nail 05/28/17. Keep dressings clean dry and in tact. Ice/ Elevate as needed. IV antibx as ordered, NO driving Weight bearing as tolerated w choice of assistive device as needed using post op shoe with weight bearing. Follow up with Dr. Westfall next week at [facility], Call for appt. Current Hospital Diet Patient's current hospital diet: Regular Diet Discharge Diet Recommended Diet: Regular Diet Procedures Procedures Performed: Left third toe abcess evacuation, debridement of osteomyelitis left third toe middle and proximal phalanges, tenosynovectomy of third extensor tendon, debridement of eschar first metatarsophalangeal joint, removal of necrotic nail plate third toe Pending Studies Studies pending at discharge: no Laboratory Results 05/30/17 06:22 Red Blood Count 4.26, Mean Corpuscular Volume 87.1, Mean Corpuscular Hemoglobin 27.7, Mean Corpuscular Hemoglobin Concent 31.8, Mean Platelet Volume 9.2, Neutrophils (%) (Auto) 43.0, Lymphocytes (%) (Auto) 45.7, Monocytes (%) (Auto) 6.4, Eosinophils (%) (Auto) 4.2, Basophils (%) (Auto) 0.4, Neutrophils # (Auto) 3.18, Lymphocytes # (Auto) 3.38, Monocytes # (Auto) 0.47, Eosinophils # (Auto) 0.31, Basophils # (Auto) 0.03 05/30/17 06:22 Test 05/24/17 14:02 05/24/17 14:09 05/25/17 06:47 05/30/17 06:22 Activated Partial Thromboplast Time 44.6 SECONDS (21.0-31.0) Partial Thromboplastin Ratio 1.7 Bedside Lactic Acid Venous 1.14 mmol/L (0.90-1.70) Estimated Average Glucose 111 mg/dl Hemoglobin A1c 5.5 % (4.5-5.6) Lactic Acid Level 0.7 mmol/L (0.4-2.0) Magnesium Level 1.9 mg/dl (1.8-2.4) Thyroid Stimulating Hormone (TSH) 1.340 uIu/ml (0.300-4.500) Hepatitis C Antibody Screen NEG (NEG) White Blood Count 7.39 K/uL (4.8-10.8) Red Blood Count 4.26 M/uL (4.2-5.4) Hemoglobin 11.8 g/dL (12.0-16.0) Hematocrit 37.1 % (37-47) Mean Corpuscular Volume 87.1 fL (80-100) Mean Corpuscular Hemoglobin 27.7 pg (25-34) Mean Corpuscular Hemoglobin Concent 31.8 g/dl (32-36) Platelet Count 183 K/uL (130-400) Mean Platelet Volume 9.2 fL (7.4-10.4) Neutrophils (%) (Auto) 43.0 % Lymphocytes (%) (Auto) 45.7 % Monocytes (%) (Auto) 6.4 % Eosinophils (%) (Auto) 4.2 % Basophils (%) (Auto) 0.4 % Neutrophils # (Auto) 3.18 K/uL (1.4-6.5) Lymphocytes # (Auto) 3.38 K/uL (1.2-3.4) Monocytes # (Auto) 0.47 K/uL (0.11-0.59) Eosinophils # (Auto) 0.31 K/uL (0-0.5) Basophils # (Auto) 0.03 K/uL (0-0.2) RDW Standard Deviation 42.7 fL (36.4-46.3) RDW Coefficient of Variation 13.5 % (11.5-14.5) Immature Granulocyte % (Auto) 0.3 % Immature Granulocyte # (Auto) 0.02 K/uL (0.00-0.02) Prothrombin Time 11.4 SECONDS (9.0-12.0) Prothromb Time International Ratio 1.1 (0.9-1.1) Anion Gap 4.0 mmol/L (3-11) Est Creatinine Clear Calc Drug Dose 102.3 ml/min Estimated GFR () 110.7 Estimated GFR (Non- 95.5 BUN/Creatinine Ratio 19.4 (10-20) Calcium Level 9.3 mg/dl (8.5-10.1) Total Bilirubin 0.2 mg/dl (0.2-1) Aspartate Amino Transf (AST/SGOT) 33 U/L (15-37) Alanine Aminotransferase (ALT/SGPT) 33 U/L (12-78) Alkaline Phosphatase 123 U/L (45-117) Total Protein 7.9 gm/dl (6.4-8.2) Albumin 3.1 gm/dl (3.4-5.0) Globulin 4.8 gm/dl (2.5-4.0) Albumin/Globulin Ratio 0.6 (0.9-2) Date/Time Source Procedure Growth Status 05/24/17 14:02 Blood Blood Culture - Final NO GROWTH Complete 05/28/17 16:30 Abscess Toe Left 3 Gram Stain - Final Resulted 05/28/17 16:30 Bacterial Culture - Preliminary Staphylococcus Aureus Resulted Hemoglobin A1c Test 05/25/17 06:47 Range/Units Estimated Average Glucose 111 mg/dl Hemoglobin A1c 5.5 4.5-5.6 % Medical Emergencies . Who to Call and When: Medical Emergencies: If at any time you feel your situation is an emergency, please call 911 immediately. . Non-Emergent Contact Non-Emergency issues call your: Primary Care Provider, Specialist (orthopedics) Call Non-Emergent contact if: you have a fever, your pain is not controlled . . "Provider Documentation" section prepared by Medhat Hampton. . Chart Computer Recommendations Chart Computer Recommendations: S/p I&D 3rd toe and removal nail 05/28/17. Keep dressings clean dry and in tact. Ice/ Elevate as needed. IV antibx as ordered, NO driving Weight bearing as tolerated w choice of assistive device as needed using post op shoe with weight bearing. Follow up with Dr. Westfall next week at [facility], Call for appt. VTE Core Measure Inpt VTE Proph given/why not?: Warfarin (Coumadin)
[2017-05-30] MEDS: ONDANSETRON INJ 2 MG/ML 2 ML VIAL IV PRN (13:23)
--- NOTE | 2017-05-30 13:43 | Discharge Summary ---
Discharge Summary Date of Service May 30, 2017. Discharge Summary Admission Date: May 24, 2017 at 14:10 Discharge Date: May 30, 2017 Discharge Disposition: Home with services (PICC line with outpatient IV antibiotics) Principal Diagnosis: Left foot osteomyelitis (from Staph Aureus) third toe middle phalanx, osteomyelitis proximal phalanx, left third toe abcess, Tenosynovitis third toe, Necrosis third nailplate, Eschar first metarsophalangeal joint Admission Information HPI (per Admitting provider): This is a 61 year old female with a PMH of multiple foot problems and surgeries including neuroma surgery, multiple hammer toe surgeries, neuropathy and neuropathic pain s/p pain pump (morphine + baclofen); hx. of DM2, no longer on a medications due to gastric bypass and weight loss; hx. of CVA and residual visual disturbance; HTN; asthma; depression; presents secondary to L foot pain, burning, redness. States she recently had surgery on April 29 -- L foot first metatarsal phalangeal fusion and third digit hammertoe deformity correction. She was told not to be weightbearing on that foot, but may be using it as per records. She tells me that it was doing fine for a few weeks, but then she states it became red, swollen and much more tender starting on May 20. She presented to the ER on May 23 and was discharged , but was called back when imaging could have suggested osteomyelitis and cultures were growing a staph infection. Upon presentation, the foot was more red and swollen than prior. +fevers. No chest pain, no shortness of breath. + pain not controlled with IV Dilaudid in the ED. She also states her appetite is poor due to her foot pain. Physical Exam (per Admitting): General Appearance: WD/WN, no apparent distress Head: normocephalic, atraumatic ENT: hearing grossly normal Neck: supple Respiratory/Chest: chest non-tender, lungs clear, normal breath sounds, no respiratory distress, no accessory muscle use Cardiovascular: no edema, no gallop, no JVD, no murmur, normal peripheral pulses, + tachycardia Abdomen/GI: normal bowel sounds, non tender, soft, no organomegaly, + pertinent finding (surgical scarring noted) Back: no CVA tenderness, no muscle spasm Extremities/Musculoskelatal: no calf tenderness, + swelling, + pertinent finding (L dorsum of the foot is erythematous, slightly edematous, very painful to touch, second digit is partially amputated, third digit with open wound secondary to surgery) Neurologic/Psych: gun number II-XII nml as tested, no motor/sensory deficits, alert , normal mood/affect, oriented x 3 Skin: normal color Lymphatic: no adenopathy Hospital Course This is a 61 year old female with a PMH of multiple foot problems and surgeries including neuroma surgery, multiple hammer toe surgeries, neuropathy and neuropathic pain s/p pain pump (morphine + baclofen) presents with L foot infection / osteomyelitis CT of left lower extremity Achilles tendon anchor noted in the calcaneus. Thickening of the distal Achilles tendon suggested. Bone spur at the inferior calcaneus. Ankle mortise intact. Plate and screw fixation across the first metatarsophalangeal articulation with a transarticular screw also in place. Irregularity of the head of the first metatarsal and base of the proximal phalanx of the first toe with loss of joint space, likely expected arthrodesis findings. Postsurgical changes of resection of the head of the second metatarsal. Absence of the head of the proximal phalanx of the third toe. Diffuse soft tissue swelling of the third toe. Osseous dissolution of the base of the middle phalanx of the third toe may be present. Diffuse subcutaneous edema. No gross hardware complication. No acute fracture. No focal fluid collections allowing for noncontrast technique IMPRESSION: 1. Diffuse subcutaneous edema with focal more significant soft tissue swelling of the third toe suggesting a focal site of infection. Additionally, osseous dissolution of the base of the middle phalanx of the third toe. The absence of the head of the proximal phalanx of the third toe may represent postsurgical change. Findings remain suspicious for osteomyelitis of the third toe. 2. Postsurgical changes as above. No hardware complication or acute osseous injury. Initially started on Vancomycin and Cefepime, antibiotics changed to ceftriaxone IV q24 hours only as per Infectious Disease Dr. Marshall because of previous history of MSSA As per Infectious Disease Dr. Marshall the patient to need 6 weeks of ceftriaxone 2 gram q24 hours for treatment of osteomyelitis no current purulent drainage on exam on 05/25/17, cultures sent on 05/26/17 from left foot with Staph Aureus which is MSSA PICC line placed on 05/26/17 Procedure(s) Performed on 05/28/17 by orthopedics Left third toe abscess evacuation, debridement of osteomyelitis left third toe middle and proximal phalanges, tenosynovectomy of third extensor tendon, debridement of eschar first metatarsophalangeal joint, removal of necrotic nail plate third toe" Post-Operative Diagnosis Left foot osteomyelitis third toe middle phalanx, osteomyelitis proximal phalanx , left third toe abcess, Tenosynovitis third toe, Necrosis third nailplate, Eschar first metarsophalangeal joint. The left third toe bone was sent to the lab and grew Staph. Aureus Patient was recently started on coumadin on 04/29/17 for DVT prophylaxis after previous left foot surgery, will restart this medication tomorrow if not contraindicated post-op Continue pain medications, antibiotics Patient also has other history of pain pump placed in the past, history of gastric bypass, history of CVA, history of tachycardia but these issues generally have been stable during the hospital stay Disposition: Discharge home with PICC line for 6 weeks of ceftriaxone 2 gram q24 hours for treatment of osteomyelitis tentative stop date 07/05. Will need weekly cbc,cmp, esr while on therapy and these labs are to be arranged by primary care doctor Follow up appointments 06/01/2017 6:15 PM [facility], [facility] 06/02/2017 9:20 AM Jp Mckay MD [facility], [facility], [facility] Scenery for follow up of INR while on Coumadin [facility] Appointments can be scheduled [phone] Orthopedics recommendations S/p I&D 3rd toe and removal nail 05/28/17. Keep dressings clean dry and in tact. Ice/ Elevate as needed. IV antibx as ordered, NO driving Weight bearing as tolerated w choice of assistive device as needed using post op shoe with weight bearing. Follow up with Dr. Westfall next week at [facility], Call for appt. Total time spent on discharge = 60 minutes This includes examination of the patient, discharge planning, medication reconciliation, and communication with other providers. Discharge Instructions see above
[2017-05-30 13:48] VITALS: BP 100/64; PULSE 82; TEMP 36.5; O2SAT 96
[2017-05-30] MEDS ORDERED: RXC5 PO (14:37)
--- NOTE | 2017-06-03 11:49 | EDITING REQUIRED CODING QUERY ---
CODING QUERY To promote full compliance with coding requirements relating to patient care, provider participation is requested in all cases of commercial reporter uncertainty. Please assist us with the question(s) below: Coding Question(s): Diabetic Patient with history of multiple foot procedures for hammertoes presents with foot pain. Recent surgery 04/29 - left foot first metatarsal phalangeal fusion and 3rd digit hammertoe deformity correction. Patient states was doing fine for a couple of weeks, then foot became swollen, tender - dx of left foot osteomyelitis MSSA, abscess and 3rd toe tenosynovitis. please document, if suspected or known the etiology of the infection. Thank you. Mario Marie [facility] Physician's Response(s): STAPHYLOCOCCUS AUREUS grew in wound culture and surgical specimen. Patient had risks for infection vs re-infection such as mentioned history of diabetes and previous surgery Principal Diagnosis: "_that condition established after study, to be chiefly responsible for occasioning the admission of the patient to the hospital for care." Co-Existing Principal Diagnosis: "_when two or more diagnoses equally meet the criteria for principal diagnosis as determined by the circumstances of admission, diagnostic work up, and/or therapy provided, and the Alphabetic Index, Tabular List, or another coding guideline does not provide sequencing direction, any one of the diagnoses may be sequenced first." "When the physician has documented what appears to be a current diagnosis in the body of the record, but has not included the diagnosis in the final diagnostic statement, the physician should be asked whether the diagnosis should be added." (Source Coding [facility] 2 QTR90. p3-4)
[2017-06-03] MEDS ORDERED: CEFT1INJ57 IV (14:36)
== END 2017-05-30 14:50 | disposition home health service (06) | DRG 982 ==
LOC: C.EDB 12:35 → C.MSN 14:10 → ENRESERV 14:56
PROVIDERS: ADMIT Family Medicine; ATTEND Hospitalist
PROC: 0QBR0ZX Excision of Left Toe Phalanx, Open Approach, Diagnostic (ICD-10-PCS; principal; 2017-05-28 08:45)
PROC: 0LBW0ZZ Excision of Left Foot Tendon, Open Approach (ICD-10-PCS; principal; 2017-05-28 08:45)
PROC: 0S9N0ZZ Drainage of Left Metatarsal-Phalangeal Joint, Open Approach (ICD-10-PCS; principal; 2017-05-28 08:45)
PROC: 02HV33Z Insertion of Infusion Device into Superior Vena Cava, Percutaneous Approach (ICD-10-PCS; principal; 2017-05-28 08:45)
PROC: 0QDR0ZZ Extraction of Left Toe Phalanx, Open Approach (ICD-10-PCS; principal; 2017-05-28 08:45)
PROC: 0HTRXZZ Resection of Toe Nail, External Approach (ICD-10-PCS; principal; 2017-05-28 08:45)
DX: E11.69 Type 2 diabetes mellitus with other specified complication (principal); L03.116 Cellulitis of left lower limb; M86.8X7 Other osteomyelitis, ankle and foot; M65.172 Other infective (teno)synovitis, left ankle and foot; J45.909 Unspecified asthma, uncomplicated; F32.9 Major depressive disorder, single episode, unspecified; M77.32 Calcaneal spur, left foot; M96.1 Postlaminectomy syndrome, not elsewhere classified; Z79.01 Long term (current) use of anticoagulants; E11.40 Type 2 diabetes mellitus with diabetic neuropathy, unspecified; Z96.89 Presence of other specified functional implants; Z87.891 Personal history of nicotine dependence; Z91.040 Latex allergy status; Z86.73 Personal history of transient ischemic attack (TIA), and cerebral infarction without residual deficits; B95.61 Methicillin susceptible Staphylococcus aureus infection as the cause of diseases classified elsewhere

== ENCOUNTER → 2017-06-01 | Outpatient (CLI) | payer OTHER ==
[~2017-06-01] MED LIST changes: +ACET-1047 PO; +CEFT1INJ57 IV; -CEPH500C PO; +HYDR-4383 PO; +RXC5 PO; -SULF800T23 PO
[2017-06-01 11:43] LABS: HEMATOCRIT 40.4 % (37-47); MEAN CELL VOLUME 87.4 fL (80-100); MEAN CORPUSCULAR HEMOGLOBIN 28.1 pg (25-34); MEAN CORPUSCULAR HGB CONC 32.2 g/dl (32-36); PLATELET COUNT 255 K/uL (130-400); RED CELL DISTRIBUTION WIDTH CV 13.6 % (11.5-14.5); RED CELL DISTRIBUTION WIDTH SD 43.2 fL (36.4-46.3); WHITE BLOOD COUNT 8.53 K/uL (4.8-10.8)
[2017-06-01 11:57] LABS: ALBUMIN 3.3 gm/dl (3.4-5.0); ALT/SGPT 41 U/L (12-78); AST/SGOT 38 U/L (15-37); BLOOD UREA NITROGEN 12 mg/dl (7-18); CALCIUM 9.4 mg/dl (8.5-10.1); CARBON DIOXIDE 29 mmol/L (21-32); CREATININE 0.66 mg/dl (0.60-1.20); GLUCOSE 76 mg/dl (70-99); SODIUM 138 mmol/L (136-145)
[2017-06-01 11:59] LABS: ALKALINE PHOSPHATASE 135 U/L (45-117); TOTAL PROTEIN 8.3 gm/dl (6.4-8.2)
[2017-06-01 15:51] LABS: BASO % 0.7 %; BASO ABS # 0.06 K/uL (0-0.2); EOS % 3.1 %; EOS ABS # 0.25 K/uL (0-0.5); IG# 0.06 K/uL (0.00-0.02); LYMPH ABS # 2.37 K/uL (1.2-3.4); MONO % 9.4 %; MONO ABS # 0.77 K/uL (0.11-0.59); NEUT % 57.1 %; NEUT ABS # 4.67 K/uL (1.4-6.5)
== END | disposition home or self-care (01) ==
LOC: C.LABSPEC 11:10
PROVIDERS: ATTEND Internal Medicine Infectious Disease
DX: M86.9 Osteomyelitis, unspecified (principal)

== ENCOUNTER → 2017-06-07 | Outpatient (CLI) | payer OTHER ==
[2017-06-07 14:34] LABS: BASO % 0.6 %; BASO ABS # 0.05 K/uL (0-0.2); EOS % 2.5 %; HEMATOCRIT 38.8 % (37-47); HEMOGLOBIN 12.5 g/dL (12.0-16.0); IG# 0.02 K/uL (0.00-0.02); LYMPH % 37.7 %; LYMPH ABS # 2.96 K/uL (1.2-3.4); MEAN CELL VOLUME 87.4 fL (80-100); MEAN CORPUSCULAR HEMOGLOBIN 28.2 pg (25-34); MEAN CORPUSCULAR HGB CONC 32.2 g/dl (32-36); MEAN PLATELET VOLUME 10.4 fL (7.4-10.4); MONO % 8.4 %; MONO ABS # 0.66 K/uL (0.11-0.59); NEUT % 50.5 %; NEUT ABS # 3.97 K/uL (1.4-6.5); PLATELET COUNT 267 K/uL (130-400); RED CELL DISTRIBUTION WIDTH CV 13.9 % (11.5-14.5); RED CELL DISTRIBUTION WIDTH SD 43.7 fL (36.4-46.3); WHITE BLOOD COUNT 7.86 K/uL (4.8-10.8)
[2017-06-07 14:39] LABS: INR 1.2 (0.9-1.1)
[2017-06-07 14:49] LABS: ALBUMIN 3.4 gm/dl (3.4-5.0); ALKALINE PHOSPHATASE 108 U/L (45-117); ALT/SGPT 27 U/L (12-78); AST/SGOT 24 U/L (15-37); BLOOD UREA NITROGEN 14 mg/dl (7-18); CALCIUM 9.5 mg/dl (8.5-10.1); CARBON DIOXIDE 30 mmol/L (21-32); CREATININE 0.57 mg/dl (0.60-1.20); GLUCOSE 79 mg/dl (70-99); POTASSIUM 4.2 mmol/L (3.5-5.1); SODIUM 138 mmol/L (136-145); TOTAL PROTEIN 8.4 gm/dl (6.4-8.2)
--- NOTE | 2017-06-08 12:42 | CODING QUERY NO DIAGNOSIS ---
Valid Physician Order Needed 56 A valid physician order must be submitted in order to properly bill for the service(s) provided, including date of service(s), valid diagnosis, and physician signature. If these tests are done on a recurring basis the original physician order must be submitted in order to code and bill for the service(s) provided. Please fax us the original, signed physician order so that we may expedite billing to [phone] DOS 06/07/2017 * CPK * CBC W/DIFF * PROTHROMBIN TIME * SED RATE * COMP METABOLIC Thank you [facility] Information Management
== END | disposition home or self-care (01) ==
LOC: C.LABSPEC 13:47
PROVIDERS: ATTEND Family Medicine
DX: Z01.89 Encounter for other specified special examinations (principal)

== ENCOUNTER → 2017-06-10 | Outpatient (CLI) | payer OTHER ==
[2017-06-10 09:55] LABS: INR 1.5 (0.9-1.1)
--- NOTE | 2017-08-31 07:33 | CODING QUERY NO DIAGNOSIS ---
Valid Physician Order Needed 56 A valid physician order must be submitted in order to properly bill for the service(s) provided, including date of service(s), valid diagnosis, and physician signature. If these tests are done on a recurring basis the original physician order must be submitted in order to code and bill for the service(s) provided. Please fax us the original, signed physician order so that we may expedite billing to [phone] DOS 06/10/2017 * FOSTER * PROTHROMBIN TIME Thank you [facility] Information Management
== END | disposition home or self-care (01) ==
LOC: C.LABSPEC 09:15
PROVIDERS: ATTEND Internal Medicine Infectious Disease
DX: M86.171 Other acute osteomyelitis, right ankle and foot (principal); Z45.2 Encounter for adjustment and management of vascular access device; Z79.2 Long term (current) use of antibiotics; I10 Essential (primary) hypertension; F32.9 Major depressive disorder, single episode, unspecified

== ENCOUNTER → 2017-06-14 | Outpatient (CLI) | payer OTHER ==
[~2017-06-14] MED LIST changes: -HYDR-4383 PO
[2017-06-14 12:14] LABS: HEMATOCRIT 40.5 % (37-47); HEMOGLOBIN 12.9 g/dL (12.0-16.0); MEAN CELL VOLUME 86.2 fL (80-100); MEAN CORPUSCULAR HEMOGLOBIN 27.4 pg (25-34); MEAN CORPUSCULAR HGB CONC 31.9 g/dl (32-36); MEAN PLATELET VOLUME 10.5 fL (7.4-10.4); PLATELET COUNT 316 K/uL (130-400); RED CELL DISTRIBUTION WIDTH CV 13.8 % (11.5-14.5); RED CELL DISTRIBUTION WIDTH SD 43.6 fL (36.4-46.3); WHITE BLOOD COUNT 8.16 K/uL (4.8-10.8)
[2017-06-14 12:28] LABS: INR 4.6 (0.9-1.1)
[2017-06-14 12:53] LABS: ALBUMIN 3.5 gm/dl (3.4-5.0); ALT/SGPT 24 U/L (12-78); AST/SGOT 22 U/L (15-37); BLOOD UREA NITROGEN 22 mg/dl (7-18); CALCIUM 9.8 mg/dl (8.5-10.1); CARBON DIOXIDE 29 mmol/L (21-32); CREATININE 0.61 mg/dl (0.60-1.20); GLUCOSE 69 mg/dl (70-99); POTASSIUM 4.2 mmol/L (3.5-5.1); SODIUM 137 mmol/L (136-145)
[2017-06-14 12:56] LABS: ALKALINE PHOSPHATASE 105 U/L (45-117); TOTAL PROTEIN 8.5 gm/dl (6.4-8.2)
== END | disposition home or self-care (01) ==
LOC: C.LABSPEC 12:08
PROVIDERS: ATTEND Family Medicine
DX: M86.9 Osteomyelitis, unspecified (principal)

== ENCOUNTER → 2017-06-17 | Outpatient (CLI) | payer OTHER ==
[~2017-06-17] MED LIST changes: +HYDR-4383 PO
[2017-06-17 10:38] LABS: INR 1.8 (0.9-1.1)
--- NOTE | 2017-06-18 13:33 | CODING QUERY NO DIAGNOSIS ---
Valid Physician Order Needed 56 A valid physician order must be submitted in order to properly bill for the service(s) provided, including date of service(s), valid diagnosis, and physician signature. If these tests are done on a recurring basis the original physician order must be submitted in order to code and bill for the service(s) provided. Please fax us the original, signed physician order so that we may expedite billing to [phone] DOS 06/17/2017 * PROTHROMBIN TIME Thank you [facility] Information Management
== END | disposition home or self-care (01) ==
LOC: C.LABSPEC 10:15
PROVIDERS: ATTEND Family Medicine
DX: Z01.89 Encounter for other specified special examinations (principal)

== ENCOUNTER → 2017-06-21 | Outpatient (CLI) | payer OTHER ==
[~2017-06-21] MED LIST changes: -HYDR-4383 PO
[2017-06-21 14:04] LABS: HEMATOCRIT 39.8 % (37-47); HEMOGLOBIN 12.9 g/dL (12.0-16.0); MEAN CORPUSCULAR HEMOGLOBIN 27.9 pg (25-34); MEAN CORPUSCULAR HGB CONC 32.4 g/dl (32-36); MEAN PLATELET VOLUME 10.4 fL (7.4-10.4); PLATELET COUNT 264 K/uL (130-400); RED CELL DISTRIBUTION WIDTH CV 13.8 % (11.5-14.5); WHITE BLOOD COUNT 7.22 K/uL (4.8-10.8)
[2017-06-21 14:13] LABS: ALBUMIN 3.7 gm/dl (3.4-5.0); ALT/SGPT 25 U/L (12-78); BLOOD UREA NITROGEN 18 mg/dl (7-18); CALCIUM 9.1 mg/dl (8.5-10.1); CARBON DIOXIDE 27 mmol/L (21-32); CREATININE 0.53 mg/dl (0.60-1.20); GLUCOSE 57 mg/dl (70-99); SODIUM 136 mmol/L (136-145)
[2017-06-21 14:16] LABS: ALKALINE PHOSPHATASE 103 U/L (45-117); AST/SGOT 28 U/L (15-37); TOTAL PROTEIN 8.3 gm/dl (6.4-8.2)
[2017-06-21 14:27] LABS: INR 8.6 (0.9-1.1)
== END | disposition home or self-care (01) ==
LOC: C.LABSPEC 13:41
PROVIDERS: ATTEND Internal Medicine Infectious Disease
DX: M86.9 Osteomyelitis, unspecified (principal)

== ENCOUNTER → 2017-06-24 | Outpatient (CLI) | payer OTHER ==
[~2017-06-24] MED LIST changes: +HYDR-4383 PO
--- NOTE | 2017-06-28 09:27 | CODING QUERY NO DIAGNOSIS ---
Valid Physician Order Needed A valid physician order must be submitted in order to properly bill for the service(s) provided, including date of service(s), valid diagnosis, and physician signature. If these tests are done on a recurring basis the original physician order must be submitted in order to code and bill for the service(s) provided. Please fax us the original, signed physician order so that we may expedite billing to [phone] DOS 06/24/2017 * PROTHROMBIN TIME Thank you Evelio [facility] Information Management
== END | disposition home or self-care (01) ==
LOC: C.LABSPEC 09:55
PROVIDERS: ATTEND Family Medicine
DX: Z51.81 Encounter for therapeutic drug level monitoring (principal); Z79.01 Long term (current) use of anticoagulants

== ENCOUNTER → 2017-06-28 | Outpatient (CLI) | payer OTHER ==
[~2017-06-28] MED LIST changes: -HYDR-4383 PO
[2017-06-28 13:48] LABS: HEMATOCRIT 39.2 % (37-47); HEMOGLOBIN 12.6 g/dL (12.0-16.0); MEAN CELL VOLUME 85.6 fL (80-100); MEAN CORPUSCULAR HEMOGLOBIN 27.5 pg (25-34); MEAN CORPUSCULAR HGB CONC 32.1 g/dl (32-36); MEAN PLATELET VOLUME 10.7 fL (7.4-10.4); PLATELET COUNT 220 K/uL (130-400); RED CELL DISTRIBUTION WIDTH CV 13.4 % (11.5-14.5); RED CELL DISTRIBUTION WIDTH SD 41.8 fL (36.4-46.3); WHITE BLOOD COUNT 6.21 K/uL (4.8-10.8)
[2017-06-28 14:07] LABS: INR 1.3 (0.9-1.1)
[2017-06-28 15:07] LABS: ALBUMIN 3.4 gm/dl (3.4-5.0); ALT/SGPT 22 U/L (12-78); AST/SGOT 23 U/L (15-37); BLOOD UREA NITROGEN 14 mg/dl (7-18); CALCIUM 9.1 mg/dl (8.5-10.1); CARBON DIOXIDE 28 mmol/L (21-32); CREATININE 0.54 mg/dl (0.60-1.20); GLUCOSE 107 mg/dl (70-99); POTASSIUM 4.4 mmol/L (3.5-5.1); SODIUM 136 mmol/L (136-145)
[2017-06-28 15:09] LABS: ALKALINE PHOSPHATASE 112 U/L (45-117); TOTAL PROTEIN 7.8 gm/dl (6.4-8.2)
== END | disposition home or self-care (01) ==
LOC: C.LABSPEC 13:37
PROVIDERS: ATTEND Family Medicine
DX: M86.9 Osteomyelitis, unspecified (principal)

== ENCOUNTER 2020-03-31 15:53 | Observation (INO) ==
[2020-03-31] MEDS ORDERED: MoRPHine SULFATE 10 MG/ML CARP/VIAL IV PRN (16:14)
[2020-03-31] MEDS ORDERED: cefTRIAXone SODIUM 2,000 MG/70 ML BAG IV STA (16:18)
--- NOTE | 2020-03-31 16:22 | Emergency Department Note ---
Impression & Plan Osteomyelitis, Acute pain of left foot, Precordial chest pain, Failure of outpatient treatment ED Provider Note NAME: ALO BILL AGE: 64 SEX: F : 1955 ARRIVES VIA: Walk-In INFORMANT: [Patient] ED PROVIDER(S): [Michael Gongora MD] CHIEF COMPLAINT: Foot infection HISTORY OF PRESENT ILLNESS: Patient is a 64-year-old female who presents with a left great toe infection. Her toe has been giving her trouble for years but it has worsened in the last month. She is currently seeing the wound center and also a specialist from the [facility]. The patient is currently on Keflex. Her wound has grown out a sensitive staph. The patient had an x-ray recently that suggested the possibility of osteomyelitis. She states that in the last 3 days, the pain in the foot/toe has increased. The pain is an 8 on a scale of 1-10. The pain is worse to walk. There has been some scant drainage from the toe. The patient was told to report to the ER if the pain worsened as that may be a sign that the infection was worsening. There has been no fever, no cough or congestion. He has had no other complaints or concerns. REVIEW OF SYSTEMS: See HPI for pertinent positives and negatives. A total of ten systems were revie wed and were otherwise negative. PMHx/PSHx: See Below SOCIAL HISTORY: See Below. PHYSICAL EXAM: GENERAL: Patient is in no acute distress. HEENT: No acute trauma, normocephalic atraumatic, mucous membranes moist, no nasal congestion, no scleral icterus. NECK: No stridor, no adenopathy, no meningismus, trachea is midline. LUNGS: Clear to auscultation bilaterally, no wheeze, no rhonchi, breath sounds equal. HEART: Without murmurs gallops or rubs, regular rate and rhythm. ABDOMEN: Soft, nontender, bowel sounds positive, no hernias, no peritonitis. EXTREMITIES: No cyanosis. The patient does have an ulcer-like lesion to the plantar aspect of the left great toe. There is a scant amount of yellow drainage on the dressing. There is no deep ulcer or obvious deep infection. She does not have a toenail. The toe and the adjacent portion of the foot has some erythema and warmth. The toe is painful diffusely with palpation. NEUROLOGIC: Oriented x 3, no acute motor or sensory deficits, no focal weakness. SKIN: No rash, no jaundice, no diaphoresis. DIFFERENTIAL DIAGNOSIS: Cellulitis, ulcer, deep tissue infection, joint infection, osteomyelitis, failed outpatient treatment, fracture. In addition, during her stay, I considered the possibility of medication reaction, angina, DC. EMERGENCY DEPARTMENT COURSE/PROCEDURES: ECG: Indication was chest pain. The ECG shows a normal sinus rhythm with a rate of 97. There is no ST elevation, no PVCs. The QTc is 447. Second EKG: Indication was chest pain. The ECG shows a normal sinus rhythm with a rate of 79. There is no ST elevation, no PVCs. The QTc is 444. Continuous Cardiac Monitoring: An order was placed for continuous cardiac monitoring. The monitor shows a rate of 84 with normal sinus rhythm. Critical Care Note: I have personally spent 42 minutes of critical care time in the direct management of this patient. This includes bedside care, interpretation of diagnostic studies, and testing, discussion with consultants, patient, and family members, and other required patient management activities. This 42 minutes is in excess of all separately billable procedures. MEDICAL DECISION MAKING: There is no leukocytosis or concerning anemia. There is a normal platelet co unt. Sed rate was elevated somewhat at 55, this sed rate elevation would be consistent with infection/inflammation. There was no significant electrolyte abnormality or kidney failure. Cardiac enzyme testing x1 was not consistent with acute cardiac injury. Left foot CT does show a great toe osteomyelitis. Cellulitis was also suspected. The patient received IV ceftriaxone as empiric antibiotic coverage. She was given IV morphine for pain, IV Zofran for nausea. She was given IV Dilaudid for pain. She received IV Benadryl, IV Pepcid and IV Phenergan. She was eventually placed on nitroglycerin paste. During the patient's stay, she began having some left-sided chest pain and nausea. She was dry heaving. This started after her dose of morphine. Several ECGs were done during her painful episodes, the ECGs did not show any cardiac ischemia. The patient seemed to feel better after some additional nausea medication and nitroglycerin paste. She then received a dose of Dilaudid for additional left foot pain and again, began having some left chest pain, dry heaves and nausea. I did order for cardiac enzyme testing. I do think the patient requires cardiac monitoring and serial enzymes. Certainly, angina must be considered however, she may be having a GI reaction to her pain medication. I did speak to the patient at length, I reevaluated her multiple times. I spoke with case management, the on-call hospitalist has been consulted. In short, the patient requires a hospital stay for her osteomyelitis. She has failed outpatient treatment. In addition, with the onset of her left chest pain and nausea, further cardiac work-up is warranted. Past Med/Surg History Medical History Anemia H/O IRON INFUSIONS Anxiety due to invasive procedure reports severe anxiety with all surgical procedures since CVA with cardiac cath 2011 Asthma Chronic back pain Degenerative disc disease Depression H/O GERD (gastroesophageal reflux disease) Herniated intervertebral disc of lumbar spine Lumbar post-laminectomy syndrome Migraine H/O Neuropathy of left foot Osteoarthritis Post traumatic stress disorder Presence of intrathecal pump Ruptured lumbar disc Sleep apnea BIPAP Stroke 2011 DURING CARDIAC CATH. LOSS OF PERIPHERAL VISION. Tachycardia Surgical History Gastric bypass status for obesity H/O section H/O shoulder surgery REMOVAL OF LEFT DISTAL CLAVICLE R/T SEVERE OA History of cardiac cath 2011. NO STENTS. REPORTS SHE HAD A STROKE DURING PROCEDURE. History of colonoscopy History of esophagogastroduodenoscopy (EGD) History of foot surgery Left History of surgery 08/31/2018 [facility] - Removal of hardware from left foot & resection of three, four, five metatarsal heads Hx of cholecystectomy Family History Grandmother Family history of diabetes mellitus Mother Family history of diabetes mellitus Aunt Family history of diabetes mellitus Social History Smoking Status: Former smoker Tobacco Type: Cigarettes Second Hand Exposure: Yes (as a child); Hx Alcohol Use: Yes (rarely) Alcohol type: wine Hx Substance Use: Yes Preferred Language: Mongolian Communication Ability: Effective Visual Impairment: Blindness Hearing Ability: Normal Sizer Machine Required: No Beliefs That Will Affect Care: None marital status: Current Living Situation: Spouse current occupational status: disabled Feels Safe at Home: Yes Assistive Devices: Cane and Glasses Allergies Allergies Allergy/AdvReac Type Severity Reaction Status Date / Time aspirin Allergy Severe Asthma Verified 03/28/20 13:52 symptoms NSAIDS (Non-Steroidal Allergy Intermediate TRIGGERS Verified 03/28/20 13:52 Anti-Inflamma ASTHMA latex Allergy Mild RASH Verified 03/28/20 13:52 hydrocodone AdvReac Intermediate UPSET Verified 03/28/20 13:52 STOMACH lorazepam AdvReac Intermediate SLEEP Verified 03/28/20 13:52 WALKING phenylpropanolamine AdvReac Intermediate ELEVATED Verified 03/28/20 13:52 BLOOD PRESSURE zolpidem AdvReac Intermediate SLEEP Verified 03/28/20 13:52 WALKING docusate AdvReac Mild LIQUID Verified 03/28/20 13:52 COLACE "VOMITING" Home Meds Home Medications Medication Instructions Recorded Confirmed Morphine pain pump 1 dose INTRATHECAL DIRECTED 03/21/18 03/07/20 acetaminophen 325 mg capsule 650 mg PO Q4H PRN cap 03/21/18 03/07/20 albuterol sulfate 90 mcg/actuation 2 puffs INH QID PRN 03/21/18 03/07/20 aerosol inhaler aspirin 81 mg tablet,delayed 81 mg PO DAILY 03/21/18 03/07/20 release calcium carbonate 500 mg calcium 2 tabs PO DAILY tab 03/21/18 03/07/20 (1,250 mg) chewable tablet cholecalciferol (vitamin D3) 125 5,000 units PO DAILY 03/21/18 03/07/20 mcg (5,000 unit) capsule cyanocobalamin (vitamin B-12) 1,000 mcg PO DAILY 03/21/18 03/07/20 1,000 mcg tablet dicyclomine 10 mg capsule 10 mg PO QID PRN 03/21/18 03/07/20 docusate sodium 100 mg capsule 100 mg PO BID PRN 03/21/18 03/07/20 ferrous sulfate 220 mg (44 mg 220 mg PO BID ml 03/21/18 03/07/20 iron)/5 mL oral elixir folic acid 400 mcg tablet 400 mcg PO BID tab 03/21/18 03/07/20 lactobacillus combination no.9 4 1 tab PO BID cap 03/21/18 03/07/20 billion cell capsule multivitamin,[id number] 1 tab PO DAILY tab 03/21/18 03/07/20 verapamil 180 mg tablet,extended 180 mg PO HS 03/21/18 03/07/20 release omeprazole 20 mg PO DAILY PRN 08/17/18 03/07/20 baclofen 1 dose INTRATHECAL UD 07/14/19 03/07/20 duloxetine 60 mg capsule,delayed 60 mg PO DAILY 12/11/19 03/07/20 release Previous Rx's Medication Instructions Recorded cephalexin 500 mg capsule 500 mg PO qid #40 cap 03/04/20 gabapentin 300 mg capsule 300 mg PO .COMPLEX #90 cap 03/07/20 cephalexin 500 mg capsule 500 mg PO qid 30 Days #120 cap 03/22/20 Results & Data (ED) Vital Signs Vital Signs - 24 hr 03/31/20 15:56 03/31/20 17:21 03/31/20 17:24 Temperature 37 C Temperature Source Oral Pulse Rate 85 73 83 Pulse Rate from SpO2 Sensor 75 82 Respiratory Rate 20 15 24 Respiratory Effort / Characteristics Non-Labored Spontaneous Respiratory Depth Normal Blood Pressure 181/119 H Blood Pressure Mean 139 Pulse Oximetry 99 98 Sepsis Recent Fever Within 48 Hours No Sepsis New/Unexplained Change in Mental Status N/A Sepsis Action Taken by Nursing No Action Required 03/31/20 17:30 03/31/20 17:31 03/31/20 17:40 Temperature Temperature Source Pulse Rate 81 72 71 Pulse Rate from SpO2 Sensor 79 74 72 Respiratory Rate 27 H 17 19 Respiratory Effort / Characteristics Respiratory Depth Blood Pressure 161/106 H Blood Pressure Mean 129 Pulse Oximetry 97 99 95 Sepsis Recent Fever Within 48 Hours Sepsis New/Unexplained Change in Mental Status Sepsis Action Taken by Nursing 03/31/20 17:50 03/31/20 18:00 03/31/20 18:10 Temperature Temperature Source Pulse Rate 74 107 H 76 Pulse Rate from SpO2 Sensor 76 104 H Respiratory Rate 19 30 H 16 Respiratory Effort / Characteristics Respiratory Depth Blood Pressure Blood Pressure Mean Pulse Oximetry 91 99 Sepsis Recent Fever Within 48 Hours Sepsis New/Unexplained Change in Mental Status Sepsis Action Taken by Nursing 03/31/20 18:20 03/31/20 18:30 Temperature Temperature Source Pulse Rate 79 98 H Pulse Rate from SpO2 Sensor Respiratory Rate 16 22 Respiratory Effort / Characteristics Respiratory Depth Blood Pressure Blood Pressure Mean Pulse Oximetry Sepsis Recent Fever Within 48 Hours Sepsis New/Unexplained Change in Mental Status Sepsis Action Taken by [facility] Medications Current Medication List: was personally reviewed by me Laboratory Data Attestation: I reviewed the patient's lab results. Result diagrams: 03/31/20 16:39 03/31/20 16:39 Lab Results 03/31/20 03/31/20 03/31/20 Range/Units 16:39 16:39 16:39 WBC 8.53 (4.8-10.8) K/uL RBC 5.19 (4.2-5.4) M/uL Hgb 13.4 (12.0-16.0) g/dL Hct 43.1 (37-47) % MCV 83.0 (80-100) fL MCH 25.8 (25-34) pg MCHC 31.1 L (32-36) g/dL RDW Std Deviation 59.8 H (36.4-46.3) fL RDW Coeff of Ricardo 19.6 H (11.5-14.5) % Plt Count 240 (130-400) K/uL MPV 10.1 (7.4-10.4) fL Immature Gran % (Auto) 0.1 % Neut % (Auto) 62.8 % Lymph % (Auto) 29.3 % Wolfe % (Auto) 5.3 % Eos % (Auto) 2.3 % Baso % (Auto) 0.2 % Neut # (Auto) 5.35 (1.4-6.5) K/uL Lymph # (Auto) 2.50 (1.2-3.4) K/uL Wolfe # (Auto) 0.45 (0.11-0.59) K/uL Eos # (Auto) 0.20 (0-0.5) K/uL Baso # (Auto) 0.02 (0-0.2) K/uL Immature Gran # (Auto) 0.01 (0.00-0.02) K/uL ESR 55 H (0-21) mm/hr Sodium 139 (136-145) mmol/L Potassium 4.4 (3.5-5.1) mmol/L Chloride 105 (98-107) mmol/L Carbon Dioxide 32 (21-32) mmol/L Anion Gap 2.0 L (3-11) BUN 18 (7-18) mg/dl Creatinine 0.67 (0.6-1.2) mg/dl Est Cr Clr Drug Dosing Not Reportable Est GFR ( Amer) 108.4 Est GFR (Non-Af Amer) 93.5 BUN/Creatinine Ratio 27.3 H (10-20) Glucose 74 (70-99) mg/dl Calcium 8.9 (8.5-10.1) mg/dl Troponin I (0-0.045) ng/ml 03/31/20 Range/Units 16:39 WBC (4.8-10.8) K/uL RBC (4.2-5.4) M/uL Hgb (12.0-16.0) g/dL Hct (37-47) % MCV (80-100) fL MCH (25-34) pg MCHC (32-36) g/dL RDW Std Deviation (36.4-46.3) fL RDW Coeff of Ricardo (11.5-14.5) % Plt Count (130-400) K/uL MPV (7.4-10.4) fL Immature Gran % (Auto) % Neut % (Auto) % Lymph % (Auto) % Wolfe % (Auto) % Eos % (Auto) % Baso % (Auto) % Neut # (Auto) (1.4-6.5) K/uL Lymph # (Auto) (1.2-3.4) K/uL Wolfe # (Auto) (0.11-0.59) K/uL Eos # (Auto) (0-0.5) K/uL Baso # (Auto) (0-0.2) K/uL Immature Gran # (Auto) (0.00-0.02) K/uL ESR (0-21) mm/hr Sodium (136-145) mmol/L Potassium (3.5-5.1) mmol/L Chloride (98-107) mmol/L Carbon Dioxide (21-32) mmol/L Anion Gap (3-11) BUN (7-18) mg/dl Creatinine (0.6-1.2) mg/dl Est Cr Clr Drug Dosing Est GFR ( Amer) Est GFR (Non-Af Amer) BUN/Creatinine Ratio (10-20) Glucose (70-99) mg/dl Calcium (8.5-10.1) mg/dl Troponin I < 0.015 (0-0.045) ng/ml Administered Medications Morphine Sulfate (Morphine Sulfate 10 Mg/Ml Carp/Vial) 6 mg IV Q30M PRN PRN Reason: Pain Stop: 04/14/20 16:13 Last Admin: 03/31/20 16:42 Dose: 6 mg Documented by: [id number] Discontinued Medications Diphenhydramine HCl (Diphenhydramine 50 Mg/Ml Vial) 12.5 mg IV NOW STA Stop: 03/31/20 17:08 Last Admin: 03/31/20 17:31 Dose: 12.5 mg Documented by: [id number] Famotidine (Famotidine 20mg/5ml Iv Push) 20 mg IV ONE STA Stop: 03/31/20 17:11 Last Admin: 03/31/20 17:31 Dose: 20 mg Documented by: [id number] Hydromorphone HCl (Hydromorphone Inj 0.5 Mg/0.5 Ml Syr) 0.5 mg IV NOW STA Stop: 03/31/20 17:41 Last Admin: 03/31/20 17:52 Dose: 0.5 mg Documented by: [id number] Ceftriaxone Sodium (Rocephin) 2,000 mg in 70 mls @ 140 mls/hr IV NOW STA Stop: 03/31/20 16:47 Last Infusion: 03/31/20 18:29 Dose: 0 mls/hr Documented by: [id number] Admin: 03/31/20 16:42 Dose: 140 mls/hr Documented by: [id number] Promethazine HCl (Phenergan) 12.5 mg in 50.5 mls @ 202 mls/hr IV NOW STA Stop: 03/31/20 18:30 Last Admin: 03/31/20 18:24 Dose: 202 mls/hr Documented by: [id number] Nitroglycerin (Nitroglycerin 2% Ointment 30gm Tube) 1 inch EXT NOW STA Stop: 03/31/20 17:56 Last Admin: 03/31/20 18:04 Dose: 1 inch Documented by: [id number] Ondansetron HCl (Ondansetron Inj 2 Mg/Ml 2 Ml Vial) Confirm Administered Dose 4 mg .ROUTE .STK-MED ONE Stop: 03/31/20 17:07 Last Admin: 03/31/20 17:12 Dose: Not Given Documented by: [id number] Ondansetron HCl (Ondansetron Inj 2 Mg/Ml 2 Ml Vial) 4 mg IV NOW STA Stop: 03/31/20 17:08 Last Admin: 03/31/20 17:12 Dose: 4 mg Documented by: [id number] Promethazine HCl (Promethazine 12.5 Mg/50.5 Ml Nss) Confirm Administered Dose 12.5 mg IV .STK-MED ONE Stop: 03/31/20 18:17 Last Admin: 03/31/20 18:25 Dose: Not Given Documented by: [id number] Imaging Data Radiologist's Impression: CT foot LT wo con HISTORY: 64 years-old Female poss osteo of the great toe chronic soft tissue wound of the great toe with clinical concern for acute osteomyelitis. COMPARISON: Left foot radiographs 03/08/2020, CT left foot 09/09/2018 TECHNIQUE: Multiple axial CT images of the left foot were obtained without the use of IV contrast. Additional 3-D pattern images were generated from a separate workstation. A dose lowering technique was used consistent with the principals of KATHY. FINDINGS: Unchanged chronic deformities of the second through fifth metatarsal heads with bony fragmentation suggestive of prior resection. Partial bony fusion of the first MTP joint redemonstrated with evidence of prior hardware removal. Screw tracts are noted within the calcaneus with retained metallic foci. Demineralized appearance the bones. Large enthesophyte of the calcaneus. Mild tibiotalar and subtalar osteoarthritis. Mild to moderate midfoot osteoarthritis. Mild erosive changes are again noted involving the distal tuft of the first distal phalanx. No additional osseous erosion identified. There is diffuse muscular atrophy with mild to moderate diffuse subcutaneous edema. Tendons and ligaments are not well evaluated by CT technique. No drainable fluid collection. There is a suggested soft tissue defect/ulcer involving the distal great toe. IMPRESSION: 1. Skin thickening with suggested ulceration of the distal great toe. Additionally, there is mild osseous erosion of the tuft of the first distal phalanx which appears similar to the 03/08/2020 study suggestive of acute osteomyelitis. 2. Mild subcutaneous edema suggestive of cellulitis. No drainable fluid collection. 3. Additional findings as above. Discharge Plan Visit Data Chief Complaint: Foot Injury/Pain Stated Complaint: LT FOOT INFECTION/PAIN ED Provider: Michael Gongora Discharge Problem: Osteomyelitis, Acute pain of left foot, Precordial chest pain, Failure of outpatient treatment Patient Disposition: Admitted As Inpatient Condition: Fair Forms Stand Alone Forms: My [facility] Prescriptions Prescriptions: No Action duloxetine [Cymbalta] 60 mg capsule,delayed release(DR/EC) 60 mg PO DAILY RF: 0 gabapentin 300 mg capsule 300 mg PO .COMPLEX Qty: 90 RF: 2 cephalexin [Keflex] 500 mg capsule 500 mg PO qid 30 Days Qty: 120 RF: 1 verapamil 180 mg tablet extended release 180 mg PO HS RF: 0 cyanocobalamin (vitamin B-12) [Vitamin B-12] 1,000 mcg tablet 1,000 mcg PO DAILY RF: 0 folic acid 400 mcg tablet 400 mcg PO BID RF: 0 aspirin [Adult Aspirin Regimen] 81 mg tablet,delayed release (DR/EC) 81 mg PO DAILY RF: 0 docusate sodium [Colace] 100 mg capsule 100 mg PO BID PRN (Reason: Constipation) RF: 0 calcium carbonate 500 mg calcium (1,250 mg) tablet,chewable 2 tabs PO DAILY RF: 0 albuterol sulfate [Ventolin HFA] 90 mcg/actuation HFA aerosol inhaler 2 puffs INH QID PRN (Reason: Shortness Of Breath Or Wheezing) RF: 0 cholecalciferol (vitamin D3) 5,000 unit capsule 5,000 units PO DAILY RF: 0 dicyclomine 10 mg capsule 10 mg PO QID PRN (Reason: Abdominal Pain) RF: 0 multivitamin,[id number] [Complete Multivitamin] tablet 1 tab PO DAILY RF: 0 acetaminophen [Tylenol] 325 mg capsule 650 mg PO Q4H PRN (Reason: Pain) RF: 0 lactobacillus combination no.9 [Adult 50 Plus Probiotic] 4 billion cell capsule 1 tab PO BID RF: 0 ferrous sulfate 220 mg (44 mg iron)/5 mL elixir 220 mg PO BID RF: 0 Morphine pain pump 1 dose Intrathecal DIRECTED RF: 0 cephalexin [Keflex] 500 mg capsule 500 mg PO qid Qty: 40 RF: 1 baclofen 1 dose intrathecal UD RF: 0 omeprazole 20 mg Tablet,Delayed Release (Dr/Ec) 20 mg PO DAILY PRN (Reason: Heartburn) RF: 0 Referrals Referrals: Jp Mckay MD [Primary Care Provider] - Discharge Problem: Osteomyelitis Qualifiers: Osteomyelitis type: unspecified type Osteomyelitis location: foot Laterality: left Qualified Code(s): M86.9 - Osteomyelitis, unspecified
[2020-03-31 16:49] LABS: Basophils # (auto) 0.02 K/uL (0-0.2); Basophils % (auto) 0.2 %; Eosinophils % (auto) 2.3 %; Hematocrit (blood only) 43.1 % (37-47); Hemoglobin 13.4 g/dL (12.0-16.0); Immature Granulocytes # (auto) 0.01 K/uL (0.00-0.02); Immature Granulocytes % (auto) 0.1 %; Lymphocytes % (auto) 29.3 %; Mean Corpuscular Hemoglobin 25.8 pg (25-34); Mean Corpuscular Hgb Conc 31.1 g/dL (32-36); Mean Platelet Volume 10.1 fL (7.4-10.4); Monocytes # (auto) 0.45 K/uL (0.11-0.59); Monocytes % (auto) 5.3 %; Neutrophils # (auto) 5.35 K/uL (1.4-6.5); Neutrophils % (auto) 62.8 %; Platelet Count 240 K/uL (130-400); RDW Coefficient of Variation 19.6 % (11.5-14.5); RDW Standard Deviation 59.8 fL (36.4-46.3); Red Blood Count 5.19 M/uL (4.2-5.4); White Blood Count 8.53 K/uL (4.8-10.8)
[2020-03-31 17:06] LABS: BUN Creatinine Ratio 27.3 (10-20); Blood Urea Nitrogen 18 mg/dl (7-18); Calcium 8.9 mg/dl (8.5-10.1); Carbon Dioxide 32 mmol/L (21-32); Chloride 105 mmol/L (98-107); Est GFR (African American) 108.4; Est GFR (Non-African American) 93.5; Glucose 74 mg/dl (70-99); Potassium 4.4 mmol/L (3.5-5.1); Sodium 139 mmol/L (136-145)
[2020-03-31] MEDS ORDERED: ONDANSETRON INJ 2 MG/ML 2 ML VIAL ONE (17:06)
[2020-03-31] MEDS ORDERED: diphenhydrAMINE 50 MG/ML VIAL IV STA (17:07)
[2020-03-31] MEDS ORDERED: ONDANSETRON INJ 2 MG/ML 2 ML VIAL IV STA (17:07)
[2020-03-31] MEDS ORDERED: FAMOTIDINE 20MG/5ML IV PUSH IV STA (17:10)
--- NOTE | 2020-03-31 17:31 | CT Scan Report ---
CT foot LT wo con HISTORY: 64 years-old Female poss osteo of the great toe chronic soft tissue wound of the great toe with clinical concern for acute osteomyelitis. COMPARISON: Left foot radiographs 03/08/2020, CT left foot 09/09/2018 TECHNIQUE: Multiple axial CT images of the left foot were obtained without the use of IV contrast. Ad ditional 3-D pattern images were generated from a separate workstation. A dose lowering technique was used consistent with the principals of ALARA. FINDINGS: Unchanged chronic deformities of the second through fifth metatarsal heads with bony fragmentation herrera ggestive of prior resection. Partial bony fusion of the first MTP joint redemonstrated with evidence of prior hardware removal. Screw tracts are noted within the calcaneus with retained metallic foci. D emineralized appearance the bones. Large enthesophyte of the calcaneus. Mild tibiotalar and subtalar osteoarthritis. Mild to moderate midfoot osteoarthritis. Mild erosive changes are again noted involvi ng the distal tuft of the first distal phalanx. No additional osseous erosion identified. There is diffuse muscular atrophy with mild to moderate diffuse subcutaneous edema. Tendons and ligam ents are not well evaluated by CT technique. No drainable fluid collection. There is a suggested soft tissue defect/ulcer involving the distal great toe. IMPRESSION: 1. Skin thickening with suggested ulceration of the distal great toe. Additionally, there is mild oss eous erosion of the tuft of the first distal phalanx which appears similar to the 03/08/2020 study sug gestive of acute osteomyelitis. 2. Mild subcutaneous edema suggestive of cellulitis. No drainable fluid collection. 3. Additional findings as above. ACT 112: Negative or not required by law. The above report was generated using voice recognition software. It may contain grammatical, syntax o r spelling errors. Electronically signed by: Walter Hoff M.D. 03/31/2020 5:30 PM
[2020-03-31] MEDS ORDERED: HYDROmorphone INJ 0.5 MG/0.5 ML SYR IV STA (17:40)
[2020-03-31] MEDS ORDERED: NITROGLYCERIN 2% OINTMENT 30GM TUBE EXT STA (17:55)
[2020-03-31] MEDS ORDERED: PROMETHAZINE 12.5 MG/50.5 ML NSS IV ONE (18:16)
[2020-03-31] MEDS ORDERED: PROMETHAZINE 12.5 MG/50.5 ML BAG IV STA (18:16)
[2020-03-31] MEDS ORDERED: PROMETHAZINE HCL 25 MG in SODIUM CHLORIDE 0.9% 50 ML IV STA (18:35)
[2020-03-31] MEDS ORDERED: NITROGLYCERIN SL 0.4 MG/TAB TAB SL PRN (18:58)
--- NOTE | 2020-03-31 19:10 | History & Physical Report ---
Date of Service March 31, 2020 Assessment & Plan (1) Acute osteomyelitis of toe of left foot: Has been on oral antibiotic with Keflex for the last 1-1/2-month Increasing pain and increasing redness for the last [address] scan showed osteomyelitis involving the distal phalanx of left great toe Culture from the wound on 01 March grew a staph aureus which is pansensitive Culture from the wound on 28 March which showed scanty normal javan We will start intravenous daptomycin and ID consult for further direction of antibiotic use (2) Acute pain of left foot: Has chronic diabetic foot ulcer involving mainly the left As above (3) Precordial chest pain: Complaint to have severe epigastric/precordial pain with nausea and vomiting in the emergency room EKG x2 did not show any significant change Doubt any ACS but will get serial cardiac enzymesX3 Symptoms could be secondary to post gastric bypass surgery syndrome (4) Diabetic ulcer of left great toe: 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 (5) Cerebrovascular accident: History of CVA without any sequelae (6) Asthma: Seems to be controlled (7) Chronic back pain: Has been intrathecal pain pump Denies any increase in pain (8) Presence of intrathecal pump: (9) Gastric bypass status for obesity: (10) Sleep apnea: Does not use any CPAP (11) Herniated intervertebral disc of lumbar spine: No acute pain DVT prophylaxis Subcu heparin CODE STATUS Full History of Present Illness Chief Complaint: Increasing pain right great toe and foot for the last 2 days and chest pain while in the emergency room Primary Care Provider: Jp Mckay MD She is a 64-year-old obese female with significant past medical history of diabetes type 2, controlled asthma, major depressive disorder, neuropathy with presence of intrathecal pump, chronic back pain, history of CVA, central sleep apnea, post gastric surgery syndrome, attention, iron deficiency anemia and vitamin D deficiency apparently has been suffering from chronic left great toe ulceration for a long time. Followed up by the wound clinic and was seen in the clinic on of last he has been on oral Keflex for the last 1-1/2-month. She has been complaining of more pain and redness involving the left great toe and adjoining area for the last 2 days. Denies any fever and/or chills associated with it. While in the ER she complained to have epigastric/precordial pain with nausea and vomiting. She denies any increasing back pain, any numbness and or tingling more than usual involving the lower extremities. She was afebrile and her white count was not elevated and apparent CT scan of the left foot did show osteomyelitis involving the left great toe distal phalanx. She received 1 dose of intravenous ceftriaxone and antibiotic were changed to IV daptomycin and was admitted to telemetry unit for continuation of care. Her wound culture from yes second of last month showed a staph aureus and there was more or less pansensitive. Her recent culture from did show low counts of mixed javan. Given the ongoing increasing pain and redness and osteomyelitis on CT intravenous daptomycin was chosen and ID consultation is sought. Allergies Allergy/AdvReac Type Severity Reaction Status Date / Time aspirin Allergy Severe Asthma Verified 03/28/20 13:52 symptoms NSAIDS (Non-Steroidal Allergy Intermediate TRIGGERS Verified 03/28/20 13:52 Anti-Inflamma ASTHMA latex Allergy Mild RASH Verified 03/28/20 13:52 hydrocodone AdvReac Intermediate UPSET Verified 03/28/20 13:52 STOMACH lorazepam AdvReac Intermediate SLEEP Verified 03/28/20 13:52 WALKING phenylpropanolamine AdvReac Intermediate ELEVATED Verified 03/28/20 13:52 BLOOD PRESSURE zolpidem AdvReac Intermediate SLEEP Verified 03/28/20 13:52 WALKING docusate AdvReac Mild LIQUID Verified 03/28/20 13:52 COLACE "VOMITING" Home Medications Home Medications Medication Instructions Recorded Confirmed Type Morphine pain pump 1 dose INTRATHECAL DIRECTED 03/21/18 03/31/20 History acetaminophen 325 mg capsule 650 mg PO Q4H PRN cap 03/21/18 03/31/20 History albuterol sulfate 90 mcg/actuation 2 puffs INH QID PRN 03/21/18 03/31/20 History aerosol inhaler aspirin 81 mg tablet,delayed 81 mg PO QAM 03/21/18 03/31/20 History release cholecalciferol (vitamin D3) 125 5,000 units PO QAM 03/21/18 03/31/20 History mcg (5,000 unit) capsule cyanocobalamin (vitamin B-12) 1,000 mcg PO QAM 03/21/18 03/31/20 History 1,000 mcg tablet dicyclomine 10 mg capsule 10 mg PO QID PRN 03/21/18 03/31/20 History docusate sodium 100 mg capsule 100 mg PO BID 03/21/18 03/31/20 History ferrous sulfate 220 mg (44 mg 220 mg PO BID ml 03/21/18 03/31/20 History iron)/5 mL oral elixir folic acid 400 mcg tablet 400 mcg PO BID tab 03/21/18 03/31/20 History verapamil 180 mg tablet,extended 180 mg PO QAM 03/21/18 03/31/20 History release omeprazole 20 mg PO DAILY PRN 08/17/18 03/31/20 History baclofen 1 dose INTRATHECAL DIRECTED 07/14/19 03/31/20 History calcium carbonate-vitamin D3 1 tab PO DAILY 03/31/20 03/31/20 History [Calcium 600 + D(3)] cephalexin [Keflex] 500 mg PO QID 03/31/20 03/31/20 History duloxetine 30 mg PO QPM 03/31/20 03/31/20 History duloxetine 60 mg PO QAM 03/31/20 03/31/20 History inulin [Fiber Gummies] 2.5 g PO BID 03/31/20 03/31/20 History lactobacillus combination no.4 See Rx Instructions .ROUTE .COMPLEX 03/31/20 03/31/20 History [Probiotic] pediatric multivitamin 2 tab PO DAILY 03/31/20 03/31/20 History [Flintstones Multivitamin] trazodone 150 mg PO HS 03/31/20 03/31/20 History Past Med/Surg History Medical History Anemia H/O IRON INFUSIONS Anxiety due to invasive procedure reports severe anxiety with all surgical procedures since CVA with cardiac cath 2011 Asthma Chronic back pain Degenerative disc disease Depression H/O GERD (gastroesophageal reflux disease) Herniated intervertebral disc of lumbar spine Lumbar post-laminectomy syndrome Migraine H/O Neuropathy of left foot Osteoarthritis Post traumatic stress disorder Presence of intrathecal pump Ruptured lumbar disc Sleep apnea BIPAP Stroke 2011 DURING CARDIAC CATH. LOSS OF PERIPHERAL VISION. Tachycardia Surgical History Gastric bypass status for obesity H/O section H/O shoulder surgery REMOVAL OF LEFT DISTAL CLAVICLE R/T SEVERE OA History of cardiac cath 2011. NO STENTS. REPORTS SHE HAD A STROKE DURING PROCEDURE. History of colonoscopy History of esophagogastroduodenoscopy (EGD) History of foot surgery Left History of surgery 08/31/2018 [facility] - Removal of hardware from left foot & resection of three, four, five metatarsal heads Hx of cholecystectomy Family History Grandmother Family history of diabetes mellitus Mother Family history of diabetes mellitus Aunt Family history of diabetes mellitus Social History Smoking Status: Former smoker Tobacco Type: Cigarettes Second Hand Exposure: Yes (as a child); Hx Alcohol Use: Yes (rarely) Alcohol type: wine Hx Substance Use: Yes Preferred Language: Kazakh Communication Ability: Effective Visual Impairment: Blindness Hearing Ability: Normal [employer] Hel[employer] Required: No Beliefs That Will Affect Care: None marital status: Current Living Situation: Spouse current occupational status: disabled Feels Safe at Home: Yes Assistive Devices: Cane and Glasses Review of Systems Review of Systems: All systems reviewed & are unremarkable except as noted in HPI & below Physical Exam Physical Exam: Lying in bed with some discomfort due to chest pain and epigastric pain with nausea Constitutional: well developed, well nourished, + acute distress (Gastric and lower central chest pain) and + obese; not ill appearing Eyes: PERRL, conjunctivae normal, anicteric sclerae ENMT: external ear and nose normal, oropharynx normal Neck: trachea midline, no thyromegaly Respiratory: no respiratory distress Auscultation: lungs clear to auscultation bilaterally Cardiovascular: Rate/Rhythm: regular rate and regular rhythm Heart Sounds: no murmur Gastrointestinal (Abdomen): Inspection/Auscultation: normal bowel sounds; abdomen not distended Percussion/Palpation: + abdomen tender (Epigastrium) and abdomen soft Musculoskeletal: Extremities: + amputation noted (Left second third and fourth toe) and + foot abnormality (Gt toe is bandaged with adjoining redness and i ncreased local temperature.) Left Ulcerated medial aspect of left great toe with minimal drainage. Neurologic: Alert, awake and oriented x3 Psychiatric: A+Ox3, euthymic affect Lymphatic: no cervical or axillary lymphadenopathy Results & Data Results & Data ([facility]) Vital Signs (Past 12 Hours) Vital Signs Temp Pulse Resp BP Pulse Ox 11/01/20 18:30 98 H 22 03/31/20 18:20 79 16 03/31/20 18:10 76 16 03/31/20 18:00 107 H 30 H 99 03/31/20 17:50 74 19 91 03/31/20 17:40 71 19 95 03/31/20 17:31 72 17 161/106 H 99 03/31/20 17:30 81 27 H 97 03/31/20 17:24 83 24 98 03/31/20 17:21 73 15 181/119 H 99 03/31/20 15:56 37 C 85 20 Laboratory Results Short CBC 03/31/20 Range/Units 16:39 WBC 8.53 (4.8-10.8) K/uL Hgb 13.4 (12.0-16.0) g/dL Hct 43.1 (37-47) % Plt Count 240 (130-400) K/uL BMP 03/31/20 16:39 Sodium 139 Potassium 4.4 Chloride 105 Carbon Dioxide 32 BUN 18 Creatinine 0.67 Glucose 74 Calcium 8.9 Cardiac Enzymes 03/31/20 Range/Units 16:39 Troponin I < 0.015 (0-0.045) ng/ml Medications Administered Current Inpatient Medications Morphine Sulfate (Morphine Sulfate 10 Mg/Ml Carp/Vial) 6 mg IV Q30M PRN PRN Reason: Pain Stop: 04/14/20 16:13 Last Admin: 03/31/20 16:42 Dose: 6 mg Documented by: Nitroglycerin (Nitroglycerin Sl 0.4 Mg/Tab Tab) 0.4 mg SL UD PRN PRN Reason: Chest Pain Stop: 04/30/20 18:57 Code Status & VTE Plan VTE Prophylaxis Plan VTE Prophylaxis will be ordered: Yes
[2020-03-31] MEDS ORDERED: ALBUTEROL HFA 8 GM INHALER INH PRN (20:33)
[2020-03-31] MEDS ORDERED: DOCUSATE SODIUM 100 MG CAP PO PRN (20:33)
[2020-03-31] MEDS ORDERED: PANTOprazole 40 MG TAB PO PRN (20:33)
[2020-03-31] MEDS ORDERED: DICYCLOMINE HCL 10 MG CAP PO PRN (20:33)
[2020-03-31] MEDS ORDERED: ACETAMINOPHEN 325 MG TAB PO PRN (20:33)
[2020-03-31] MEDS ORDERED: DAPTOmycin 550 MG in SYRINGE 0 ML IV ONE (20:44)
[2020-03-31] MEDS: FERROUS SULFATE 325 MG TAB PO SCH (21:22)
[2020-03-31] MEDS: DAPTOmycin 425 MG in SYRINGE 0 ML IV SCH (21:22)
[2020-03-31] MEDS: VERAPAMIL HCL 180 MG TABCR PO SCH (21:22)
[2020-03-31] MEDS: FOLIC ACID 400 MCG TAB PO SCH (21:23)
[2020-03-31] MEDS ORDERED: PROMETHAZINE HCL 12.5 MG in SODIUM CHLORIDE 0.9% 50 ML IV PRN (21:54)
[2020-03-31] MEDS ORDERED: ONDANSETRON INJ 2 MG/ML 2 ML VIAL IV PRN (21:54)
[2020-04-01] MEDS: MoRPHine SULFATE 2 MG/ML CARP IV PRN ×6 (01:23→21:09)
[2020-04-01 07:07] LABS: Basophils # (auto) 0.01 K/uL (0-0.2); Basophils % (auto) 0.2 %; Eosinophils # (auto) 0.18 K/uL (0-0.5); Eosinophils % (auto) 3.1 %; Hematocrit (blood only) 39.9 % (37-47); Hemoglobin 12.3 g/dL (12.0-16.0); Lymphocytes # (auto) 1.87 K/uL (1.2-3.4); Lymphocytes % (auto) 32.6 %; Mean Corpuscular Hemoglobin 25.4 pg (25-34); Mean Corpuscular Hgb Conc 30.8 g/dL (32-36); Mean Corpuscular Volume 82.3 fL (80-100); Mean Platelet Volume 10.5 fL (7.4-10.4); Monocytes # (auto) 0.55 K/uL (0.11-0.59); Monocytes % (auto) 9.6 %; Neutrophils # (auto) 3.13 K/uL (1.4-6.5); Neutrophils % (auto) 54.5 %; Platelet Count 200 K/uL (130-400); RDW Coefficient of Variation 19.9 % (11.5-14.5); RDW Standard Deviation 60.2 fL (36.4-46.3); Red Blood Count 4.85 M/uL (4.2-5.4); White Blood Count 5.74 K/uL (4.8-10.8)
[2020-04-01 07:47] LABS: Calcium 8.8 mg/dl (8.5-10.1); Creatinine Clr Calc Pharmacy 111.8 ml/min; Est GFR (African American) 113.7; Est GFR (Non-African American) 98.1; Magnesium 2.1 mg/dl (1.8-2.4); Potassium 4.3 mmol/L (3.5-5.1)
--- NOTE | 2020-04-01 07:48 | Electrocardiogram Report ---
Test Reason : Blood Pressure : / mmHG Vent. Rate : 097 BPM Atrial Rate : 097 BPM P-R Int : 134 ms QRS Dur : 070 ms QT Int : 352 ms P-R-T Axes : 071 031 027 degrees QTc Int : 447 ms Poor data quality, interpretation may be adversely affected Normal sinus rhythm Normal ECG When compared with ECG of 30-AUG-2018 11:11, Vent. rate has increased BY 44 BPM Confirmed by Ric Adler ([id number]) on 04/01/2020 7:48:10 AM Referred By: REFERRED SELF Confirmed By:Ric Adler
[2020-04-01 07:49] LABS: Albumin Globulin Ratio 0.8 (0.9-2); Bilirubin,Total 0.2 mg/dl (0.2-1)
--- NOTE | 2020-04-01 07:49 | Electrocardiogram Report ---
Test Reason : Blood Pressure : / mmHG Vent. Rate : 079 BPM Atrial Rate : 079 BPM P-R Int : 144 ms QRS Dur : 074 ms QT Int : 388 ms P-R-T Axes : 054 022 048 degrees QTc Int : 444 ms Poor data quality, interpretation may be adversely affected Normal sinus rhythm Normal ECG When compared with ECG of 31-MAR-2020 17:05, No significant change Confirmed by Ric Adler ([id number]) on 04/01/2020 7:49:17 AM Referred By: REFERRED SELF Confirmed By:Ric Adler
--- NOTE | 2020-04-01 07:50 | Electrocardiogram Report ---
Test Reason : Blood Pressure : / mmHG Vent. Rate : 084 BPM Atrial Rate : 084 BPM P-R Int : 152 ms QRS Dur : 080 ms QT Int : 392 ms P-R-T Axes : 048 010 028 degrees QTc Int : 463 ms Normal sinus rhythm Normal ECG When compared with ECG of 31-MAR-2020 17:29, No significant change was found Confirmed by Ric Adler ([id number]) on 04/01/2020 7:49:57 AM Referred By: REFERRED SELF Confirmed By:Ric Adler
[2020-04-01] MEDS: CALCIUM CARBONATE 1250MG TAB PO SCH (08:13)
[2020-04-01] MEDS: CYANOCOBALAMIN 500 MCG TABLET (VITAMIN B-12) PO SCH (08:13)
[2020-04-01] MEDS: DULoxetine HCL 60 MG CAP PO SCH (08:14)
[2020-04-01] MEDS: FOLIC ACID 400 MCG TAB PO SCH ×2 (08:14→20:43)
[2020-04-01] MEDS: ASPIRIN 81 MG ECTAB PO SCH (08:14)
[2020-04-01] MEDS: CHOLECALCIFEROL 1,000 UNITS 25 MCG TAB PO SCH (08:14)
[2020-04-01] MEDS: FERROUS SULFATE 325 MG TAB PO SCH ×2 (08:14→20:43)
[2020-04-01 15:39] LABS: D Dimer 360 ug/L FEU (0-500)
[2020-04-01] MEDS: DAPTOmycin 425 MG in SYRINGE 0 ML IV SCH (20:43)
[2020-04-01] MEDS: VERAPAMIL HCL 180 MG TABCR PO SCH (20:43)
--- NOTE | 2020-04-01 22:08 | Hospitalist Progress Note ---
Date of Service April 01, 2020 Assessment & Plan (1) Precordial chest pain: Experienced chest pain and SOB in ED. No acute EKG changes. Troponins negative x 3. Had + dobutamine stress test in 2010 that led to a cardiac cath. There was not significant coronary disease, but patient suffered embolic occipital stroke from the procedure. Patient is not interested in having another cardiac cath unless absolutely necessary. No need for further cardiac evaluation unless symptoms recur. D-dimer normal, so pulmonary embolism very unlikely. Consider GI evaluation if symptoms recur (note discussion below re: elevated LFT's). (2) Abnormal liver function tests: 04/01/20 06:20 Total Bilirubin 0.2 AST 291 H ALT 200 H Alkaline Phosphatase 202 H Check follow-up LFT's, acute hepatitis profile, liver US. (3) Osteomyelitis: Non-healing ulcer left great toe, now with osteomyelitis confirmed by CT. Recent cultures grew MSSA. ID consult requested. (4) Presence of intrathecal pump: Management per Pain Management. (5) DVT prophylaxis: Low risk for VTE per IMPROVE risk assessment model. VTE prophylaxis not indicated. Ambulate. (6) Discharge planning issues: Anticipated discharge to home. Family Medicine follow-up with Dr. Mckay. Podiatry follow-up with Dr. Lopez. Wound Care follow-up with Debbie Diop. Admission and Anticipated Discharge Date Admission Date: March 31, 2020 Subjective Recheck for chest pain and osteomyelitis. Patient seen in their room around 1430. No further chest pain or SOB. No fever. Review of Systems: Constitutional- as noted above. Cardiac- as noted above. Pulmonary- no cough or SOB. GI- no nausea, vomiting, diarrhea, melena, hematochezia. - no urinary symptoms. Otherwise, as noted above. Physical Exam Constitutional: no acute distress Respiratory: no respiratory distress Auscultation: lungs clear to auscultation bilaterally Cardiovascular: Rate/Rhythm: regular rate and regular rhythm Heart Sounds: no gallop, no murmur and no cardiac rub Vessels: no JVD Extremities: no calf tenderness and no edema Gastrointestinal (Abdomen): normal bowel sounds, soft, nontender, no hepatosplenomegaly Musculoskeletal: Extremities: + extremities abnormal to inspection (superficial ulceration left great toe) and no cyanosis Skin: no rashes, warm and dry Psychiatric: Orientation: alert and oriented x 3 Results & Data Results & Data ([facility]) Vital Signs (Past 12 Hours) Vital Signs Temp Pulse Pulse Resp BP Pulse Ox 04/01/20 19:19 36.6 C 68 16 110/73 95 04/01/20 15:32 36.6 C 104 H 16 108/71 96 04/01/20 14:50 101 H 04/01/20 11:15 36.6 C 61 18 116/77 97 Laboratory Results Laboratory Results - last 24 hr 04/01/20 04/01/20 04/01/20 06:20 06:20 06:20 WBC 5.74 RBC 4.85 Hgb 12.3 Hct 39.9 MCV 82.3 MCH 25.4 MCHC 30.8 L RDW Std Deviation 60.2 H RDW Coeff of Ricardo 19.9 H Plt Count 200 MPV 10.5 H Immature Gran % (Auto) 0.0 Neut % (Auto) 54.5 Lymph % (Auto) 32.6 [place] % (Auto) 9.6 Eos % (Auto) 3.1 Baso % (Auto) 0.2 Neut # (Auto) 3.13 Lymph # (Auto) 1.87 [place] # (Auto) 0.55 Eos # (Auto) 0.18 Baso # (Auto) 0.01 Immature Gran # (Auto) 0.00 D-Dimer Sodium 141 Potassium 4.3 Chloride 106 Carbon Dioxide 31 Anion Gap 4.0 BUN 16 Creatinine 0.58 L Est Cr Clr Drug Dosing 111.8 Est GFR ( Amer) 113.7 Est GFR (Non-Af Amer) 98.1 BUN/Creatinine Ratio 27.0 H Glucose 84 Calcium 8.8 Magnesium 2.1 Total Bilirubin 0.2 AST 291 H ALT 200 H Alkaline Phosphatase 202 H Total Creatine Kinase 36 Troponin I < 0.015 Total Protein 7.0 Albumin 3.0 L Globulin 4.0 Albumin/Globulin Ratio 0.8 L 04/01/20 14:56 WBC RBC Hgb Hct MCV MCH MCHC RDW Std Deviation RDW Coeff of Ricardo Plt Count MPV Immature Gran % (Auto) Neut % (Auto) Lymph % (Auto) [place] % (Auto) Eos % (Auto) Baso % (Auto) Neut # (Auto) Lymph # (Auto) [place] # (Auto) Eos # (Auto) Baso # (Auto) Immature Gran # (Auto) D-Dimer 360 Sodium Potassium Chloride Carbon Dioxide Anion Gap BUN Creatinine Est Cr Clr Drug Dosing Est GFR ( Amer) Est GFR (Non-Af Amer) BUN/Creatinine Ratio Glucose Calcium Magnesium Total Bilirubin AST ALT Alkaline Phosphatase Total Creatine Kinase Troponin I Total Protein Albumin Globulin Albumin/Globulin Ratio (1) Osteomyelitis Laterality: left Osteomyelitis location: foot Osteomyelitis type: unspecified type Qualified Code(s): M86.9 - Osteomyelitis, unspecified
[2020-04-02] MEDS: MoRPHine SULFATE 2 MG/ML CARP IV PRN ×4 (00:26→10:48)
[2020-04-02 06:47] LABS: Hemoglobin 12.4 g/dL (12.0-16.0); Mean Corpuscular Hemoglobin 25.5 pg (25-34); Mean Corpuscular Volume 82.3 fL (80-100); Mean Platelet Volume 9.9 fL (7.4-10.4); Platelet Count 209 K/uL (130-400); RDW Coefficient of Variation 19.3 % (11.5-14.5); RDW Standard Deviation 58.7 fL (36.4-46.3); Red Blood Count 4.86 M/uL (4.2-5.4); White Blood Count 7.69 K/uL (4.8-10.8)
[2020-04-02 07:16] LABS: Alanine Aminotransferase 135 U/L (12-78); Albumin Level 3.1 gm/dl (3.4-5.0); Aspartate Aminotransferase 112 U/L (15-37); BUN Creatinine Ratio 28.7 (10-20); Bilirubin Direct < 0.1 mg/dl (0-0.2); Blood Urea Nitrogen 19 mg/dl (7-18); C Reactive Protein 0.59 mg/dl (0-0.29); Calcium 9.2 mg/dl (8.5-10.1); Carbon Dioxide 32 mmol/L (21-32); Chloride 102 mmol/L (98-107); Creatinine Clr Calc Pharmacy 98.5 ml/min; Glucose 101 mg/dl (70-99); Lipase 555 U/L (73-393); Sodium 137 mmol/L (136-145)
[2020-04-02 07:19] LABS: Albumin Globulin Ratio 0.7 (0.9-2); Alkaline Phosphatase 178 U/L (45-117); Bilirubin,Total 0.3 mg/dl (0.2-1); Globulin 4.3 gm/dl (2.5-4.0); Total Protein 7.4 gm/dl (6.4-8.2)
[2020-04-02] MEDS: CALCIUM CARBONATE 1250MG TAB PO SCH (07:52)
[2020-04-02] MEDS: FOLIC ACID 400 MCG TAB PO SCH (07:52)
[2020-04-02] MEDS: DULoxetine HCL 60 MG CAP PO SCH (07:52)
[2020-04-02] MEDS: CYANOCOBALAMIN 500 MCG TABLET (VITAMIN B-12) PO SCH (07:52)
[2020-04-02] MEDS: FERROUS SULFATE 325 MG TAB PO SCH (07:52)
[2020-04-02] MEDS: CHOLECALCIFEROL 1,000 UNITS 25 MCG TAB PO SCH (07:52)
[2020-04-02] MEDS ORDERED: oxyCODONE/ACETAMINOPHEN 5mg/325mg TAB PO PRN (08:30)
[2020-04-02] MEDS: ASPIRIN 81 MG ECTAB PO SCH (08:40)
--- NOTE | 2020-04-02 10:17 | Pain Management Consultation ---
Date of Consultation April 02, 2020 Assessment & Plan (1) Osteomyelitis: Laterality: left Osteomyelitis location: foot Osteomyelitis type: unspecified type Qualified Code(s): M86.9 - Osteomyelitis, unspecified (2) Presence of intrathecal pump: Intrathecal pump was interrogated. Dose was decreased by 25%. She is now receiving morphine 0.905 mg/day; clonidine 45.27 mcg/day; 22.63 mcg/day. I have ordered the patient Percocet 5/325 every 4 hours if needed for breakthrough pain. She does continue to have IV morphine if the pain is not controlled with Percocet. PTM has been disabled. Alarm date it has been prolonged to 05/14/2020. She will be refilled on that day at 2 PM. History of Present Illness Attending Physician: Silvio Ramirez MD History of Present Illness Mrs. Ramos is a 64-year-old female that is well-known to the [facility] pain service with a history of chronic intractable low back pain secondary to lumbar postlaminectomy syndrome that has required the implantation of an intrathecal pump and catheter delivery system. Patient is seen today for a pump adjustment. She is found to have osteomyelitis of the left great toe so the pump refill date will need prolonged so that the infection has resolved. Patient is currently receiving morphine 2 mg every 3 hours if needed for pain relief which is mildly efficacious. She denies any constitutional complaints or neurological symptoms. Allergies Allergy/AdvReac Type Severity Reaction Status Date / Time aspirin Allergy Severe Asthma Verified 03/28/20 13:52 symptoms NSAIDS (Non-Steroidal Allergy Intermediate TRIGGERS Verified 03/28/20 13:52 Anti-Inflamma ASTHMA latex Allergy Mild RASH Verified 03/28/20 13:52 hydrocodone AdvReac Intermediate UPSET Verified 03/28/20 13:52 STOMACH lorazepam AdvReac Intermediate SLEEP Verified 03/28/20 13:52 WALKING phenylpropanolamine AdvReac Intermediate ELEVATED Verified 03/28/20 13:52 BLOOD PRESSURE zolpidem AdvReac Intermediate SLEEP Verified 03/28/20 13:52 WALKING docusate AdvReac Mild LIQUID Verified 03/28/20 13:52 COLACE "VOMITING" Home Medications Home Medications Medication Instructions Recorded Confirmed Type Morphine pain pump 1 dose INTRATHECAL DIRECTED 03/21/18 03/31/20 History acetaminophen 325 mg capsule 650 mg PO Q4H PRN cap 03/21/18 03/31/20 History albuterol sulfate 90 mcg/actuation 2 puffs INH QID PRN 03/21/18 03/31/20 History aerosol inhaler aspirin 81 mg tablet,delayed 81 mg PO QAM 03/21/18 03/31/20 History release cholecalciferol (vitamin D3) 125 5,000 units PO QAM 03/21/18 03/31/20 History mcg (5,000 unit) capsule cyanocobalamin (vitamin B-12) 1,000 mcg PO QAM 03/21/18 03/31/20 History 1,000 mcg tablet dicyclomine 10 mg capsule 10 mg PO QID PRN 03/21/18 03/31/20 History docusate sodium 100 mg capsule 100 mg PO BID 03/21/18 03/31/20 History ferrous sulfate 220 mg (44 mg 220 mg PO BID ml 03/21/18 03/31/20 History iron)/5 mL oral elixir folic acid 400 mcg tablet 400 mcg PO BID tab 03/21/18 03/31/20 History verapamil 180 mg tablet,extended 180 mg PO QAM 03/21/18 03/31/20 History release omeprazole 20 mg PO DAILY PRN 08/17/18 03/31/20 History baclofen 1 dose INTRATHECAL DIRECTED 07/14/19 03/31/20 History calcium carbonate-vitamin D3 1 tab PO DAILY 03/31/20 03/31/20 History [Calcium 600 + D(3)] cephalexin [Keflex] 500 mg PO QID 03/31/20 03/31/20 History duloxetine 30 mg PO QPM 03/31/20 03/31/20 History duloxetine 60 mg PO QAM 03/31/20 03/31/20 History inulin [Fiber Gummies] 2.5 g PO BID 03/31/20 03/31/20 History lactobacillus combination no.4 See Rx Instructions .ROUTE .COMPLEX 03/31/20 03/31/20 History [Probiotic] pediatric multivitamin 2 tab PO DAILY 03/31/20 03/31/20 History [Flintstones Multivitamin] trazodone 150 mg PO HS 03/31/20 03/31/20 History Pain History Pain Location Full Body Front + Back: 1. Patient History Medical History (Updated 04/02/20 @ 01:25 by Silvio Ramirez MD) Anemia H/O IRON INFUSIONS Anxiety due to invasive procedure reports severe anxiety with all surgical procedures since CVA with cardiac cath 2011 Asthma Chronic back pain Degenerative disc disease Depression H/O GERD (gastroesophageal reflux disease) Herniated intervertebral disc of lumbar spine Lumbar post-laminectomy syndrome Migraine H/O Neuropathy of left foot Osteoarthritis Post traumatic stress disorder Presence of intrathecal pump Ruptured lumbar disc Sleep apnea BIPAP Stroke 2011 DURING CARDIAC CATH. LOSS OF PERIPHERAL VISION. Tachycardia Surgical History Gastric bypass status for obesity H/O section H/O shoulder surgery REMOVAL OF LEFT DISTAL CLAVICLE R/T SEVERE OA History of cardiac cath 2011. NO STENTS. REPORTS SHE HAD A STROKE DURING PROCEDURE. History of colonoscopy History of esophagogastroduodenoscopy (EGD) History of foot surgery Left History of surgery 08/31/2018 [facility] - Removal of hardware from left foot & resection of three, four, five metatarsal heads Hx of cholecystectomy Family History Grandmother Family history of diabetes mellitus Mother Family history of diabetes mellitus Aunt Family history of diabetes mellitus Social History Smoking Status: Never smoker Tobacco Type: Cigarettes Second Hand Exposure: Yes (as a child); Hx Alcohol Use: Yes Alcohol type: wine Hx Substance Use: Yes Preferred Language: Icelandic Communication Ability: Effective Visual Impairment: Blindness Hearing Ability: Normal [employer]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 Does not appear in acute distress. HEAD/FACE: Normocephalic and atraumatic. EYES: No drainage or conjunctival injection. ENT: Nose without bleeding or discharge. Oral mucosa moist. NECK: Full ROM without apparent pain. No swelling or masses noted. RESPIRATORY: Patient with unlabored breathing. No signs of respiratory distress. CHEST/AXILLA: Chest movement symmetrical. No deformities noted. ABDOMEN/GI: No distension. Pump is located in the LLQ. No mobility or tenderness of the pump. BACK: Moves without difficulty. SKIN: [place], warm and dry. No rash noted. MS/EXTREMITY: Moving extremities appropriately. NEURO: Alert and appears oriented. Speech is fluent. Cranial Nerves are grossly intact. PSYCH: Alert, pleasant, affect is calm
[2020-04-02 11:42] VITALS: BP 119/66; PULSE 78; TEMP 98.2; O2SAT 92
--- NOTE | 2020-04-02 12:44 | Hospitalist Progress Note ---
Date of Service April 02, 2020 Assessment & Plan (1) Osteomyelitis: Presented to ED for non-healing ulcer left great toe with worsening erythema and pain. Recent wound cultures grew MSSA. No improvement with cephalexin. CT demonstrated osteomyelitis left great toe. Received IV daptomycin. ID consult obtained. 6 week course of oral clindamycin recommended with weekly ESR + CRP. If no improvement, may need IV antibiotic therapy or surgical intervention. (2) Precordial chest pain: Experienced chest pain and SOB in ED. No acute EKG changes. Troponins negative x 3. Had + dobutamine stress test in 2010 that led to a cardiac cath. 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 Patient is not interested in having another cardiac cath unless absolutely necessary. No need for further cardiac evaluation unless symptoms recur. D-dimer normal, so pulmonary embolism very unlikely. Consider GI evaluation if symptoms recur (note discussion below re: elevated LFT's). (3) Abnormal liver function tests: 04/01/20 04/02/20 06:20 06:31 Total Bilirubin 0.2 0.3 AST 291 H 112 H ALT 200 H 135 H Alkaline Phosphatase 202 H 178 H Cause of LFT elevation uncertain. Patient is status post cholecystectomy. Episode of chest pain, rapidly improving LFT's, slightly elevated lipase suggest possibility of choledocholithiasis. Repeat LFT's as outpatient recommended with further evaluation as necessary. Avoid excessive use of acetaminophen and alcohol. (4) Presence of intrathecal pump: Management per Pain Management. (5) DVT prophylaxis: Low risk for VTE per IMPROVE risk assessment model. VTE prophylaxis not indicated. Ambulate. (6) Discharge planning issues: Anticipated discharge to home. Family Medicine follow-up with Dr. Mckay. Podiatry follow-up with Dr. Lopez. Wound Care follow-up with Dr. Lewis. Telemedicine follow-up with [facility] GRANADOS. Admission and Anticipated Discharge Date Admission Date: March 31, 2020 Subjective Recheck for chest pain and osteomyelitis. Patient seen in their room around 1140. No further chest pain or SOB. No fever. Had an episode of nausea and vomiting this morning- resolved. Upset about disagreement with roommate this morning. ID telemedicine consult this morning went well. Seen by Pain Management this morning for management of intrathecal pump. Would like to be discharged. Review of Systems: Constitutional- as noted above. Cardiac- as noted above. Pulmonary- no cough or SOB. GI- as noted above. Otherwise, as noted above. Physical Exam Constitutional: no acute distress Respiratory: no respiratory distress Auscultation: lungs clear to auscultation bilaterally Cardiovascular: Rate/Rhythm: regular rate and regular rhythm Heart Sounds: no gallop, no murmur and no cardiac rub Vessels: no JVD Extremities: no calf tenderness and no edema Gastrointestinal (Abdomen): normal bowel sounds, soft, nontender, no hepatosplenomegaly Musculoskeletal: Extremities: + extremities abnormal to inspection (left foot bandaged) and no cyanosis Skin: no rashes, warm and dry Psychiatric: Orientation: alert and oriented x 3 Results & Data Results & Data ([facility]) Vital Signs (Past 12 Hours) Vital Signs Temp Pulse Pulse Resp BP Pulse Ox 04/02/20 12:38 36.8 C 78 18 119/66 92 04/02/20 11:41 36.8 C 78 18 119/66 92 04/02/20 07:31 36.7 C 64 18 120/75 94 04/02/20 07:19 72 04/02/20 04:06 36.8 C 58 L 18 94/50 L 98 Laboratory Results Laboratory Results - last 24 hr 04/02/20 04/02/20 06:31 06:31 WBC 7.69 RBC 4.86 Hgb 12.4 Hct 40.0 MCV 82.3 MCH 25.5 MCHC 31.0 L RDW Std Deviation 58.7 H RDW Coeff of Ricardo 19.3 H Plt Count 209 MPV 9.9 Sodium 137 Potassium 4.0 Chloride 102 Carbon Dioxide 32 Anion Gap 4.0 BUN 19 H Creatinine 0.66 Est Cr Clr Drug Dosing 98.5 Est GFR ( Amer) 109.0 Est GFR (Non-Af Amer) 94.0 BUN/Creatinine Ratio 28.7 H Glucose 101 H Calcium 9.2 Total Bilirubin 0.3 Direct Bilirubin < 0.1 AST 112 H ALT 135 H Alkaline Phosphatase 178 H C-Reactive Protein 0.59 H Total Protein 7.4 Albumin 3.1 L Globulin 4.3 H Albumin/Globulin Ratio 0.7 L Lipase 555 H (1) Osteomyelitis Laterality: left Osteomyelitis location: foot Osteomyelitis type: unspecified type Qualified Code(s): M86.9 - Osteomyelitis, unspecified
--- NOTE | 2020-04-02 18:35 | Discharge Summary ---
Date of Service Date of Admission: 03/31/20 Date of Discharge: 04/02/20 Admission HPI Per Admitting Provider She is a 64-year-old obese female with significant past medical history of diabetes type 2, controlled asthma, major depressive disorder, neuropathy with presence of intrathecal pump, chronic back pain, history of CVA, central sleep apnea, post gastric surgery syndrome, attention, iron deficiency anemia and vitamin D deficiency apparently has been suffering from chronic left great toe ulceration for a long time. Followed up by the wound clinic and was seen in the clinic on of last he has been on oral Keflex for the last 1-1/2-month. She has been complaining of more pain and redness involving the left great toe and adjoining area for the last 2 days. Denies any fever and/or chills associated with it. While in the ER she complained to have epigastric/precordial pain with nausea and vomiting. She denies any increasing back pain, any numbness and or tingling more than usual involving the lower extremities. She was afebrile and her white count was not elevated and apparent CT scan of the left foot did show osteomyelitis involving the left great toe distal phalanx. She received 1 dose of intravenous ceftriaxone and antibiotic were changed to IV daptomycin and was admitted to telemetry unit for continuation of care. Her wound culture from of last month showed a staph aureus and there was more or less pansensitive. Her recent culture from did show low counts of mixed javan. Given the ongoing increasing pain and redness and osteomyelitis on CT intravenous daptomycin was chosen and ID consultation is sought. Principal Diagnosis osteomyelitis left great toe OTHER ACUTE / NEW DIAGNOSES: chest pain, acute PR ruled out elevated LFT's Discharge Data Allergies Allergy/AdvReac Type Severity Reaction Status Date / Time aspirin Allergy Severe Asthma Verified 03/28/20 13:52 symptoms NSAIDS (Non-Steroidal Allergy Intermediate TRIGGERS Verified 03/28/20 13:52 Anti-Inflamma ASTHMA latex Allergy Mild RASH Verified 03/28/20 13:52 hydrocodone AdvReac Intermediate UPSET Verified 03/28/20 13:52 STOMACH lorazepam AdvReac Intermediate SLEEP Verified 03/28/20 13:52 WALKING phenylpropanolamine AdvReac Intermediate ELEVATED Verified 03/28/20 13:52 BLOOD PRESSURE zolpidem AdvReac Intermediate SLEEP Verified 03/28/20 13:52 WALKING docusate AdvReac Mild LIQUID Verified 03/28/20 13:52 COLACE "VOMITING" Consultations 03/31/20 17:57 ED Decision to Admit Stat 03/31/20 18:58 Consult Infectious Diseases Routine 04/02/20 07:00 Consult Pain Management Routine 04/02/20 12:01 Consult Patient Rep / Service Excellence [Consult Patient Services] Routine Ordered Studies 03/31/20 16:14 CT foot LT wo con Stat Hospital Course (1) Osteomyelitis: Presented to ED for non-healing ulcer left great toe with worsening erythema and pain. Recent wound cultures grew MSSA. No improvement with cephalexin. CT demonstrated osteomyelitis left great toe. ESR = 55. CRP = 0.59. Received IV daptomycin. ID consult obtained. 6 week course of oral clindamycin recommended with weekly ESR + CRP. If no improvement, may need IV antibiotic therapy or surgical intervention. (2) Precordial chest pain: Experienced chest pain and SOB in ED. No acute EKG changes. Troponins negative x 3. Had + dobutamine stress test in 2010 that led to a cardiac cath. 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 Patient is not interested in having another cardiac cath unless absolutely necessary. No need for further cardiac evaluation unless symptoms recur. D-dimer normal, so pulmonary embolism very unlikely. Consider GI evaluation if symptoms recur (note discussion below re: elevated LFT's). (3) Abnormal liver function tests: 04/01/20 04/02/20 06:20 06:31 Total Bilirubin 0.2 0.3 AST 291 H 112 H ALT 200 H 135 H Alkaline Phosphatase 202 H 178 H Cause of LFT elevation uncertain. Patient is status post cholecystectomy. Episode of chest pain, rapidly improving LFT's, slightly elevated lipase suggest possibility of choledocholithiasis. Repeat LFT's as outpatient recommended with further evaluation as necessary. Avoid excessive use of acetaminophen and alcohol. (4) Presence of intrathecal pump: Management per Pain Management. (5) DVT prophylaxis: Low risk for VTE per IMPROVE risk assessment model. VTE prophylaxis not indicated. Ambulate. (6) Discharge planning issues: Discharged to home. Family Medicine follow-up with Dr. Mckay. Podiatry follow-up with Dr. Lopez. Wound Care follow-up with Dr. Lewis. Telemedicine follow-up with [facility] ID. Total Time Total Time Spent Total Time Spent (In Minutes): 30 Discharge Plan Discharge Items Patient Disposition: Home - Self-Care Reason For Visit: osteomyelitis left great toe, chest pain Discharge Diagnosis: chest pain- no sign of heart attack or pulmonary embolism osteomyelitis left great toe Activity: As commented below Activity Comment: Wear special shoe when walking to protect your toe. Non-emergency contact: Primary Care Provider, Hospitalist, Surgeon and Specialist Call non-emergency contact if: you have any medication questions, your symptoms worsen and your temperature is above 101 Follow-up/Referrals: Jp Mckay MD [Primary Care Provider] - (Date & Time 04/08/2020 11:20 AM Provider Jp Mckay MD [facility] ) Diet: Heart Healthy Addtl Attending Provider Instructions: MEDICATION CHANGES: Stop cephalexin (Keflex). clindamycin (Cleocin) 300 mg 4 times a day for 6 weeks SUMMARY OF TEST RESULTS: CT scan showed osteomyelitis left great toe. Blood tests did not show any indication of a heart attack or pulmonary embolism. ESR ("sed rate") was 55. C-reactive protein was 0.59. (These tests are inflammatory markers that can track response of treatment of infection.) Hemoglobin level was 12-13. Fasting blood sugars were 84, 101. Liver enzymes were elevated 04/01, but better 04/02: 04/01 04/02 total bilirubin 0.2 0.3 AST 291 112 ALT 200 135 alkaline phosphatase 202 178 RECOMMENDATIONS FOR FOLLOW-UP: Follow-up with [facility] 04/05 as scheduled. Podiatry follow-up with Dr. Lopez. Telemedicine follow-up with [facility] to be arranged. Please ask Dr. Mckay to monitor your liver function tests, CBC, ESR, and c- reactive protein. OTHER INSTRUCTIONS: Dressing changes as instructed. Clindamycin (and most antibiotics) can cause diarrhea. Sometimes the cause of the diarrhea is "C diff," which can be a serious infection. Eating yogurt or using probiotics may help. Stool should be tested for C diff if you have 3 or more loose stools / day. Please call the clinic to make arrangements. Seek medical attention if you have: * temperature above 101 * chest pain or trouble breathing * abdominal pain, nausea, vomiting * diarrhea, dark stools or bloody stools * any unanswered questions or concerns Call 911 if symptoms are severe. Please take good care of yourself. Call if you have any questions or problems. You can reach a [facility] hospitalist on duty at [facility] 24 hours a day by calling [phone]. My cell # is [phone]. Pending Studies at Discharge: No Stand-Alone Forms: [facility], Smoking Cessation Medications and DC Order Prescriptions: New clindamycin HCl 300 mg capsule 300 mg PO QID 42 Days Qty: 168 RF: 0 oxycodone-acetaminophen [Percocet] 5-325 mg tablet 1 tab PO Q4H PRN (Reason: pain) Qty: 30 RF: 0 Continued verapamil 180 mg tablet extended release 180 mg PO QAM RF: 0 cyanocobalamin (vitamin B-12) [Vitamin B-12] 1,000 mcg tablet 1,000 mcg PO QAM RF: 0 folic acid 400 mcg tablet 400 mcg PO BID RF: 0 aspirin [Adult Aspirin Regimen] 81 mg tablet,delayed release (DR/EC) 81 mg PO QAM RF: 0 docusate sodium [Colace] 100 mg capsule 100 mg PO BID RF: 0 albuterol sulfate [Ventolin HFA] 90 mcg/actuation HFA aerosol inhaler 2 puffs INH QID PRN (Reason: Shortness Of Breath Or Wheezing) RF: 0 cholecalciferol (vitamin D3) 5,000 unit capsule 5,000 units PO QAM RF: 0 dicyclomine 10 mg capsule 10 mg PO QID PRN (Reason: Abdominal Pain) RF: 0 acetaminophen [Tylenol] 325 mg capsule 650 mg PO Q4H PRN (Reason: Pain) RF: 0 ferrous sulfate 220 mg (44 mg iron)/5 mL elixir 220 mg PO BID RF: 0 Morphine pain pump 1 dose Intrathecal DIRECTED RF: 0 baclofen 1 dose intrathecal DIRECTED RF: 0 omeprazole 20 mg Tablet,Delayed Release (Dr/Ec) 20 mg PO DAILY PRN (Reason: Acid Reflux) RF: 0 trazodone 50 mg tablet 150 mg PO HS RF: 0 Flintstones Multivitamin Tablet,Chewable 2 tab PO DAILY RF: 0 duloxetine 30 mg capsule,delayed release(DR/EC) See Rx Instructions .ROUTE .COMPLEX RF: 0 calcium carbonate-vitamin D3 [Calcium 600 + D(3)] 600 mg(1,500mg) -400 unit Tablet 1 tab PO DAILY RF: 0 inulin 2.5 gram Tablet,Chewable 2.5 g PO BID RF: 0 Probiotic 3 billion cell Capsule See Rx Instructions .ROUTE .COMPLEX RF: 0 Discontinued cephalexin [Keflex] 500 mg capsule 500 mg PO QID RF: 0 Discharge Orders: Discharge Order (Routine); Ordered 04/02/20 Ordered By: Silvio Garcia/Other Patient Handouts: Clindamycin capsules Admission Data Admit Date/Time: 03/31/20 18:59 Attending Provider: Silvio Ramirez Admit Provider: Silvio Ramirez Primary Care Provider: Jp Mckay Other Providers: Babar Block ; Armando Raymundo ; Berlin Reich ; Keron Barrow I. ; Deon Muñoz II ; Aparna Cm ; Jp Parker ; Georgiana Campos Other Interventions: Discharge Summary Assessment (RN) Last Done: 04/02/20 12:38
== END 2020-04-02 14:21 | disposition home or self-care (01) ==
LOC: ED 15:53 → 2S 15:53 → SUATTDRO 18:59 → 2S 20:05

== ENCOUNTER 2020-04-26 18:56 | Inpatient (IN) ==
--- NOTE | 2020-04-26 19:52 | Emergency Department Note ---
History of Present Illness General Chief complaint: Foot Injury/Pain Stated complaint: L FOOT INFECTION Time Seen by Provider: 04/26/20 19:40 Source: patient Mode of arrival: ambulatory Limitations: no limitations History of Present Illness Provider complaint: Left great toe area pain Maximum Pain Intensity: 7 This is a 64-year-old female who presents to the ED with a chief complaint of pain in the area of her left great toe. She states that she was admitted here earlier this month. I did review those records. The patient did have a CT scan confirming some distal phalanx osteomyelitis of her left great toe. The patient appears to have some chronic pain issues as well based on records. The patient complains of pain in the left great toe. She states that she was supposed to follow-up with Dr. Lopez from [facility], a assisted living assistant. The patient states that she is having difficulty getting in touch with her. Because of her ongoing pain she decided to come in with concerns about recurrent infection. Her pain is the primary reason for her concerns about recurrent infection. Is increased pain in the left great toe recently. She states that she is currently taking Ciprofloxin twice daily. She has been on this since earlier this month. Home Medications Medication Instructions Recorded Confirmed Type Morphine pain pump 1 dose INTRATHECAL DIRECTED 03/21/18 04/26/20 History acetaminophen 325 mg capsule 650 mg PO Q4H PRN cap 03/21/18 04/26/20 History albuterol sulfate 90 mcg/actuation 2 puffs INH QID PRN 03/21/18 04/26/20 History aerosol inhaler aspirin 81 mg tablet,delayed 81 mg PO QAM 03/21/18 04/26/20 History release cholecalciferol (vitamin D3) 125 5,000 units PO QAM 03/21/18 04/26/20 History mcg (5,000 unit) capsule cyanocobalamin (vitamin B-12) 1,000 mcg PO QAM 03/21/18 04/26/20 History 1,000 mcg tablet dicyclomine 10 mg capsule 10 mg PO QID PRN 03/21/18 04/26/20 History docusate sodium 100 mg capsule 100 mg PO BID 03/21/18 04/26/20 History folic acid 400 mcg tablet 400 mcg PO BID tab 03/21/18 04/26/20 History verapamil 180 mg tablet,extended 180 mg PO HS 03/21/18 04/26/20 History release omeprazole 20 mg PO DAILY 08/17/18 04/26/20 History baclofen 1 dose INTRATHECAL DIRECTED 07/14/19 04/26/20 History Flintstones Multivitamin 2 tab PO DAILY 03/31/20 04/26/20 History Probiotic See Rx Instructions .ROUTE .COMPLEX 03/31/20 04/26/20 History calcium carbonate-vitamin D3 1 tab PO DAILY 03/31/20 04/26/20 History [Calcium 600 + D(3)] duloxetine See Rx Instructions .ROUTE .COMPLEX 03/31/20 04/26/20 History trazodone 150 mg PO HS 03/31/20 04/26/20 History cephalexin 500 mg PO QID 04/26/20 04/26/20 History ferrous sulfate [iron] 325 mg PO QAM 04/26/20 04/26/20 History morphine 15 mg PO BID PRN 04/26/20 04/26/20 History psyllium husk [Metamucil] 0 g PO DAILY 04/26/20 04/26/20 History Allergies Allergy/AdvReac Type Severity Reaction Status Date / Time aspirin Allergy Severe Asthma Verified 04/26/20 21:46 symptoms NSAIDS (Non-Steroidal Allergy Intermediate TRIGGERS Verified 04/26/20 21:46 Anti-Inflamma ASTHMA latex Allergy Mild RASH Verified 04/26/20 21:46 hydrocodone AdvReac Intermediate UPSET Verified 04/26/20 21:46 STOMACH lorazepam AdvReac Intermediate SLEEP Verified 04/26/20 21:46 WALKING phenylpropanolamine AdvReac Intermediate ELEVATED Verified 04/26/20 21:46 BLOOD PRESSURE zolpidem AdvReac Intermediate SLEEP Verified 04/26/20 21:46 WALKING docusate AdvReac Mild LIQUID Verified 04/26/20 21:46 COLACE "VOMITING" Past Med/Surg History Medical History (Updated 04/26/20 @ 21:07 by Gerry Mott DO) Anemia H/O IRON INFUSIONS Anxiety due to invasive procedure reports severe anxiety with all surgical procedures since CVA with cardiac cath 2011 Asthma Chronic back pain Degenerative disc disease Depression H/O GERD (gastroesophageal reflux disease) Herniated intervertebral disc of lumbar spine Lumbar post-laminectomy syndrome Migraine H/O Neuropathy of left foot Osteoarthritis Post traumatic stress disorder Presence of intrathecal pump Ruptured lumbar disc Sleep apnea BIPAP Stroke 2011 DURING CARDIAC CATH. LOSS OF PERIPHERAL VISION. Tachycardia Surgical History Gastric bypass status for obesity H/O section H/O shoulder surgery REMOVAL OF LEFT DISTAL CLAVICLE R/T SEVERE OA History of cardiac cath 2011. NO STENTS. REPORTS SHE HAD A STROKE DURING PROCEDURE. History of colonoscopy History of esophagogastroduodenoscopy (EGD) History of foot surgery Left History of surgery 08/31/2018 [facility] - Removal of hardware from left foot & resection of three, four, five metatarsal heads Hx of cholecystectomy Family History Grandmother Family history of diabetes mellitus Mother Family history of diabetes mellitus Aunt Family history of diabetes mellitus Social History Smoking Status: Never smoker Tobacco Type: Cigarettes Second Hand Exposure: Yes (as a child); Hx Alcohol Use: Yes Alcohol type: wine Preferred Language: Burmese Communication Ability: Effective Visual Impairment: Blindness Hearing Ability: Normal School Aide Required: No Beliefs That Will Affect Care: None marital status: Current Living Situation: Spouse current occupational status: disabled Other Information That Helps Us Care for You: Yes Feels Safe at Home: Yes Safety Concerns: Feels Safe At This Time Assistive Devices: Glasses Review of Systems A total of 10 systems reviewed and were otherwise negative Physical Exam Vital Signs Vital Signs - 24 hr 04/26/20 19:04 04/26/20 21:00 Temperature 36.9 C Temperature Source Oral Pulse Rate 79 Pulse Rate [Apical] 73 Respiratory Rate 20 18 Respiratory Effort / Characteristics Non-Labored Respiratory Depth Normal Respiratory Pattern Regular Blood Pressure 143/68 H Blood Pressure [Left Arm] 141/83 H Blood Pressure Mean 93 Blood Pressure Mean [Left Arm] 102 Blood Pressure Position Sitting Pulse Oximetry 97 99 Oxygen Delivery Method Room Air Sepsis Recent Fever Within 48 Hours No Sepsis New/Unexplained Change in Mental Status No Sepsis Action Taken by Nursing No Action Required CONSTITUTIONAL/VITAL SIGNS: Reviewed / noted above. GENERAL: Non-toxic in appearance. INTEGUMENTARY: Warm, dry, and [place]. HEAD: Normocephalic. EYES: without scleral icterus or trauma. ENT/OROPHARYNX: clear and moist. LYMPHADENOPATHY/NECK: Is supple without lymphadenopathy or meningismus. RESPIRATORY: Lungs clear and equal. CARDIOVASCULAR: Regular rate and rhythm. GI/ABDOMEN: Soft and nontender. No organomegaly or pulsatile mass. No rebound or guarding. Normal bowel sounds. EXTREMITIES: Warm and well perfused. Left great toe has a light pinkish discoloration. This appears like a chronic skin change. There are 2 ulcerations in the plantar aspect of the left great toe that appear to be chronic and without any discharge or obvious acute infection. No other abnormalities were noted. No significant swelling. No increased warmth or redness. BACK: No CVA tenderness. NEUROLOGICAL: Intact without focal deficits. PSYCHIATRIC: normal affect. MUSCULOSKELETAL: Normally developed with good muscle tone. TRIAGE NURSING DOCUMENTATION REVIEWED. Course Administered Medications Discontinued Medications Cefazolin Sodium (Ancef 2000mg) 2,000 mg in 15 mls @ 3.75 mls/min IV NOW STA Stop: 04/26/20 20:47 Last Admin: 04/26/20 21:27 Dose: 3.75 mls/min Documented by: [id number] Morphine Sulfate (Morphine Sulfate 2 Mg/Ml Carp) 2 mg IV NOW STA Stop: 04/26/20 21:03 Last Admin: 04/26/20 21: Dose: 2 mg Documented by: [id number] Medical Decision Making Differential Diagnosis Cellulitis, abscess, MRSA infection, DVT, necrotizing fasciitis, dermatitis, drug eruption, allergic reaction, osteomyelitis as well as other pathologies. Medical Records Attestation: I reviewed the patient's medical records. Home Medications Current Medication List: was personally reviewed by me Laboratory Data Result diagrams: 04/26/20 21:24 04/26/20 21:24 Lab Results 04/26/20 04/26/20 04/26/20 Range/Units 21:24 21:24 21:24 WBC 8.54 (4.8-10.8) K/uL RBC 5.07 (4.2-5.4) M/uL Hgb 13.6 (12.0-16.0) g/dL Hct 42.4 (37-47) % MCV 83.6 (80-100) fL MCH 26.8 (25-34) pg MCHC 32.1 (32-36) g/dL RDW Std Deviation 56.1 H (36.4-46.3) fL RDW Coeff of Ricardo 18.4 H (11.5-14.5) % Plt Count 199 (130-400) K/uL MPV 10.2 (7.4-10.4) fL Immature Gran % (Auto) 0.2 % Neut % (Auto) 61.6 % Lymph % (Auto) 27.8 % [place] % (Auto) 6.9 % Eos % (Auto) 2.9 % Baso % (Auto) 0.6 % Neut # (Auto) 5.26 (1.4-6.5) K/uL Lymph # (Auto) 2.37 (1.2-3.4) K/uL [place] # (Auto) 0.59 (0.11-0.59) K/uL Eos # (Auto) 0.25 (0-0.5) K/uL Baso # (Auto) 0.05 (0-0.2) K/uL Immature Gran # (Auto) 0.02 (0.00-0.02) K/uL ESR 43 H (0-21) mm/hr Sodium 139 (136-145) mmol/L Potassium 4.1 (3.5-5.1) mmol/L Chloride 105 (98-107) mmol/L Carbon Dioxide 31 (21-32) mmol/L Anion Gap 3.0 (3-11) BUN 16 (7-18) mg/dl Creatinine 0.68 (0.6-1.2) mg/dl Est Cr Clr Drug Dosing 94.5 ml/min Est GFR ( Amer) 107.9 Est GFR (Non-Af Amer) 93.1 BUN/Creatinine Ratio 23.0 H (10-20) Glucose 91 (70-99) mg/dl Calcium 9.3 (8.5-10.1) mg/dl C-Reactive Protein 0.57 H (0-0.29) mg/dl Imaging Data Radiologist's Impression: LEFT FOOT 3 VIEWS CLINICAL HISTORY: First toe pain. FINDINGS: 3 views of the left foot are compared to study dated 03/08/[address] of the foot dated 03/31/2020. The skeletal structures are osteopenic. No acute fracture is identified. A surgical anchor is present in the calcaneus. There are large dorsal and plantar calcaneal enthesophytes, as well as degenerative spurring along the dorsal aspect of the tarsal bones. There has been amputation of the second toe through the distal interphalangeal joint. No acute fracture is seen. There is fusion of the first metatarsophalangeal joint. Erosive change versus osteotomy is present involving the second through fifth metatarsal necks. Osteotomy is also suggested involving the third proximal phalanx. Erosive change is again seen involving the tuft of the first distal phalanx with mild sclerosis. Soft tissue edema is present throughout the foot, greatest in the first toe. No subcutaneous gas or radiodense foreign body is identified. IMPRESSION: 1. Findings remain suspicious for osteomyelitis involving the tuft of the first distal phalanx. 2. No acute fracture is seen. 3. Osteopenia with extensive chronic and postoperative changes as above. 4. Diffuse soft tissue edema throughout the foot suggests cellulitis. MDM Narrative Patient presents as above with concerns of osteomyelitis of her left great toe. Her exam does not suggest an acute or severe infection. She is currently on Cipro. X-ray of the foot does suggest ongoing or chronic osteomyelitis. The patient CBC was unremarkable. Sed rate and CRP are elevated. Because of the patient's increased pain, she will be seen by the I spoke with the hospitalist, who will see the patient for admission/observation and further evaluation and consultation. For further evaluation and care as well as antibiotics and orthopedic consultation. Impression & Plan Pain of left great toe, Osteomyelitis of great toe of left foot Discharge Plan Visit Data Chief Complaint: Foot Injury/Pain Stated Complaint: L FOOT INFECTION ED Provider: Gerry Mott Discharge Problem: Pain of left great toe, Osteomyelitis of great toe of left foot Patient Disposition: Being Evaluated by Hospitalist Forms Stand Alone Forms: My [facility] Prescriptions Prescriptions: No Action verapamil 180 mg tablet extended release 180 mg PO HS RF: 0 cyanocobalamin (vitamin B-12) [Vitamin B-12] 1,000 mcg tablet 1,000 mcg PO QAM RF: 0 folic acid 400 mcg tablet 400 mcg PO BID RF: 0 aspirin [Adult Aspirin Regimen] 81 mg tablet,delayed release (DR/EC) 81 mg PO QAM RF: 0 docusate sodium [Colace] 100 mg capsule 100 mg PO BID RF: 0 albuterol sulfate [Ventolin HFA] 90 mcg/actuation HFA aerosol inhaler 2 puffs INH QID PRN (Reason: Shortness Of Breath Or Wheezing) RF: 0 cholecalciferol (vitamin D3) 5,000 unit capsule 5,000 units PO QAM RF: 0 dicyclomine 10 mg capsule 10 mg PO QID PRN (Reason: Abdominal Pain) RF: 0 acetaminophen [Tylenol] 325 mg capsule 650 mg PO Q4H PRN (Reason: Pain) RF: 0 Morphine pain pump 1 dose Intrathecal DIRECTED RF: 0 baclofen 1 dose intrathecal DIRECTED RF: 0 cephalexin 500 mg capsule 500 mg PO QID RF: 0 morphine 15 mg tablet 15 mg PO BID PRN (Reason: Pain) RF: 0 ferrous sulfate [iron] 325 mg (65 mg iron) Tablet 325 mg PO QAM RF: 0 psyllium husk [Metamucil] 0.4 gram Capsule 0 g PO DAILY RF: 0 omeprazole 20 mg Tablet,Delayed Release (Dr/Ec) 20 mg PO DAILY RF: 0 trazodone 50 mg tablet 150 mg PO HS RF: 0 Flintstones Multivitamin Tablet,Chewable 2 tab PO DAILY RF: 0 duloxetine 30 mg capsule,delayed release(DR/EC) See Rx Instructions .ROUTE .COMPLEX RF: 0 calcium carbonate-vitamin D3 [Calcium 600 + D(3)] 600 mg(1,500mg) -400 unit Tablet 1 tab PO DAILY RF: 0 Probiotic 3 billion cell Capsule See Rx Instructions .ROUTE .COMPLEX RF: 0 Referrals Referrals: Jp Mckay MD [Primary Care Provider] -
--- NOTE | 2020-04-26 20:41 | XRay Report ---
LEFT FOOT 3 VIEWS CLINICAL HISTORY: First toe pain. FINDINGS: 3 views of the left foot are compared to study dated 03/08/[address] of th e foot dated 03/31/2020. The skeletal structures are osteopenic. No acute fracture is identified. A herrera rgical anchor is present in the calcaneus. There are large dorsal and plantar calcaneal enthesophytes , as well as degenerative spurring along the dorsal aspect of the tarsal bones. There has been amputa tion of the second toe through the distal interphalangeal joint. No acute fracture is seen. There is fusion of the first metatarsophalangeal joint. Erosive change versus osteotomy is present involving t he second through fifth metatarsal necks. Osteotomy is also suggested involving the third proximal ph alanx. Erosive change is again seen involving the tuft of the first distal phalanx with mild sclerosi s. Soft tissue edema is present throughout the foot, greatest in the first toe. No subcutaneous gas o r radiodense foreign body is identified. IMPRESSION: 1. Findings remain suspicious for osteomyelitis involving the tuft of the first distal phalanx. 2. No acute fracture is seen. 3. Osteopenia with extensive chronic and postoperative changes as above. 4. Diffuse soft tissue edema throughout the foot suggests cellulitis. Electronically signed by: Michael Diaz M.D. 04/26/2020 8:40 PM
[2020-04-26] MEDS ORDERED: ceFAZolin 2000MG 2,000 MG/15 ML SYR IV STA (20:44)
[2020-04-26] MEDS ORDERED: MoRPHine SULFATE 2 MG/ML CARP IV STA (21:02)
[2020-04-26 21:34] LABS: Basophils # (auto) 0.05 K/uL (0-0.2); Basophils % (auto) 0.6 %; Eosinophils # (auto) 0.25 K/uL (0-0.5); Eosinophils % (auto) 2.9 %; Hematocrit (blood only) 42.4 % (37-47); Hemoglobin 13.6 g/dL (12.0-16.0); Immature Granulocytes # (auto) 0.02 K/uL (0.00-0.02); Immature Granulocytes % (auto) 0.2 %; Lymphocytes # (auto) 2.37 K/uL (1.2-3.4); Lymphocytes % (auto) 27.8 %; Mean Corpuscular Hemoglobin 26.8 pg (25-34); Mean Corpuscular Hgb Conc 32.1 g/dL (32-36); Mean Corpuscular Volume 83.6 fL (80-100); Mean Platelet Volume 10.2 fL (7.4-10.4); Monocytes # (auto) 0.59 K/uL (0.11-0.59); Monocytes % (auto) 6.9 %; Neutrophils # (auto) 5.26 K/uL (1.4-6.5); Neutrophils % (auto) 61.6 %; Platelet Count 199 K/uL (130-400); RDW Coefficient of Variation 18.4 % (11.5-14.5); RDW Standard Deviation 56.1 fL (36.4-46.3); Red Blood Count 5.07 M/uL (4.2-5.4); White Blood Count 8.54 K/uL (4.8-10.8)
[2020-04-26 21:59] LABS: C Reactive Protein 0.57 mg/dl (0-0.29); Calcium 9.3 mg/dl (8.5-10.1); Creatinine Clr Calc Pharmacy 94.5 ml/min; Est GFR (African American) 107.9; Est GFR (Non-African American) 93.1; Potassium 4.1 mmol/L (3.5-5.1)
[2020-04-26] MEDS ORDERED: HYDROmorphone INJ 0.5 MG/0.5 ML SYR IV STA (23:16)
[2020-04-27] MEDS ORDERED: NITROGLYCERIN SL 0.4 MG/TAB TAB SL PRN (00:26)
[2020-04-27] MEDS ORDERED: HYDROmorphone INJ 0.5 MG/0.5 ML SYR IV PRN (00:26)
[2020-04-27] MEDS ORDERED: PIPERACILL/TAZOBAC CONSULT ACTIVE PRN (00:26)
[2020-04-27] MEDS ORDERED: DICYCLOMINE HCL 10 MG CAP PO PRN (00:26)
[2020-04-27] MEDS ORDERED: ALBUTEROL HFA 8 GM INHALER INH PRN (00:26)
[2020-04-27] MEDS ORDERED: POLYETHYLENE (MIRALAX) 17 GM PACK PO PRN (00:26)
--- NOTE | 2020-04-27 01:18 | History and Physical Report ---
DATE OF ADMISSION: 04/26/2020 CHIEF COMPLAINT: Infection of the left great toe. HISTORY OF PRESENT ILLNESS: This is a 64-year-old female with past medical history significant for type 2 diabetes, controlled asthma, major depression, neuropathy, intrathecal pump for chronic back pain, history of cerebrovascular accident, central sleep apnea post gastric surgery syndrome, iron deficiency anemia, vitamin D deficiency. The patient is having left great toe ulceration for a long time. She is following with the wound clinic. Initially she was treated with oral Keflex and she was recently in the hospital, admitted on 03/31/2020 and discharged on 04/02/2020. At that time, she was treated with antibiotic Rocephin and also had daptomycin and she was discharged on clindamycin and at that time she was also found to have osteomyelitis. She was discharged on a 6 weeks course of clindamycin. If no improvement, plan for IV antibiotic therapy or surgical intervention. At that time, wound culture grew MSSA.But the patient states since the last few days the pain is increasing and there is also some erythema increasing in the foot region and she was worried that infection is climbing up and she had some ambulatory dysfunction because of the pain, so she came to the ER. Denies any fever, chills. No nausea, no vomiting, no diarrhea, no constipation, no blood in the stools or black stools. Normal bladder movements. Appetite is not that great. Denies any headache. No blurred visions, no earache, no runny nose, no sore throat, no loss of sense of smell or taste. She is also having ongoing chest pain since the last couple of months. It is more positional, but it comes and goes. When it comes, it is 5/10 in severity, radiating to the left arm and there is a plan for echocardiogram as outpatient, but it is not done yet and the patient had a positive dobutamine stress test in 2010 that led to cardiac catheterization. No significant coronary disease was found, but the patient suffered embolic occipital stroke. 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 ALLERGIES: AMBIEN, GUAIFENESIN, LATEX, LORAZEPAM, LUNESTA, PHENYLEPHRINE, SALICYLATES, TYLENOL. PAST MEDICAL HISTORY: As mentioned above. PAST SURGICAL HISTORY: Breast lesion, excision biopsy on the right side, colonoscopy, EGDs with biopsy, laparoscopic exploration of abdomen with revision of the jejunojejunal anastomosis, small bowel resection, gastric bypass for obesity in 2004, pain pump several times, removal of a neuroma of left foot, cholecystectomy, left shoulder surgery. MEDICATIONS: The patient is on Tylenol 650 mg p.o. q. 4 hours p.r.n., albuterol 2 puffs inhalation q.i.d. p.r.n., aspirin 81 mg p.o. daily, baclofen pain pump, calcium plus vitamin D 1 tablet daily, clindamycin 300 mg p.o. q.i.d., vitamin D 125 mcg p.o. daily, vitamin B12 1000 mcg p.o. a.m., dicyclomine 10 mg p.o. q.i.d. p.r.n., Colace 100 mg p.o. b.i.d., duloxetine 90 mg p.o. daily, ferrous sulfate 325 mg p.o. a.m., [place]ison multivitamins 2 tablets p.o. daily, folic acid 400 mcg p.o. b.i.d., morphine pain pump, omeprazole 20 mg p.o. daily, probiotic daily, trazodone 150 mg p.o. at bedtime, verapamil 180 mg p.o. at bedtime. FAMILY HISTORY: Significant for brother has alcoholism, diabetes, hemochromatosis; father had alcoholism; daughter has asthma; mother has COPD. SOCIAL HISTORY: . Former smoker, quit in 1994, smoked 1 pack a day for 15 years. Alcohol rarely. No drug use. REVIEW OF SYSTEMS: As per HPI. Rest of the review of systems negative. PHYSICAL EXAMINATION: GENERAL: The patient is obese, not in acute distress. VITAL SIGNS: Temperature 36.9, pulse 89, respiratory rate 16, blood pressure 105/89, oxygen 98% on room air. HEENT: Pupils are equal, round, and reactive to light. Oral mucosa moist. NECK: No JVD. No neck masses. CARDIOVASCULAR: S1, S2 heard. Regular rate and rhythm. No murmur, no gallop. RESPIRATORY SYSTEM: Normal AP diameter. No accessory muscle use. No wheezing, no crackles. ABDOMEN: Soft, bowel sounds present, nontender. No distention. CENTRAL NERVOUS SYSTEM: Cranial nerves II-XII grossly intact, nonfocal. EXTREMITIES: Right great toe posterior aspect ulcers seen with erythematous changes surrounding it and tenderness on palpation. LABORATORY DATA: WBC 8.5, hemoglobin 13.6, hematocrit 42.4, platelets 199. Sodium 139, potassium 4.1, chloride 105, CO2 of 31, BUN 16, creatinine 0.6, serum glucose 91, calcium 9.3. C-reactive protein 0.57. IMAGING DATA: Foot x-ray, finding remains suspicious for osteomyelitis involving the tuft of the first distal pharynx. No acute fracture is seen. Diffuse soft tissue edema throughout the foot, there is cellulitis. ASSESSMENT AND PLAN: This is 64-year-old female who presents with ongoing right great toe osteomyelitis. 1. Right great toe osteomyelitis and also cellulitis. Has been on clindamycin since discharge on 04/03/2020. Intial plan was if no improvement, on po abx plan for IV antibiotics versus surgery. Empirically starting on daptomycin and Zosyn. Consult orthopedics in the a.m. Will keep n.p.o. until seen by orthopedics, pain control. Closely will monitor in the [facility] tele. 2. Chest pain, ongoing chest pain for a couple of months, was positional. She is supposed to get echo. We will order echo and also get cardiac consult while the patient is in the hospital. 3. History of abnormal liver functions. Will follow the LFTs. 4. Pain s/p intrathecal pain pump. 5. Deep venous thrombosis prophylaxis, sequential compression devices for now. DISPOSITION: Admit to [facility] [employer] [facility] tele. PT/OT prior to discharge. Expect to discharge home and follow with family doctor. Level 1 full code. MTDD
[2020-04-27] MEDS ORDERED: HYDROmorphone INJ 1 MG/ML SYRINGE ONE (01:43)
[2020-04-27] MEDS: DAPTOmycin 425 MG in SYRINGE 0 ML IV SCH (01:47)
[2020-04-27] MEDS: SODIUM CHLORIDE 0.9% 1000ML 1,000 ML IV SCH ×2 (01:47→14:02)
[2020-04-27] MEDS ORDERED: PIPERACILLIN/TAZOBACTAM 4.5 GM in DEXTROSE 5% 100 ML IV SCH (02:00)
[2020-04-27 06:18] LABS: Basophils # (auto) 0.03 K/uL (0-0.2); Basophils % (auto) 0.4 %; Eosinophils # (auto) 0.23 K/uL (0-0.5); Eosinophils % (auto) 3.4 %; Hematocrit (blood only) 38.8 % (37-47); Hemoglobin 12.1 g/dL (12.0-16.0); Immature Granulocytes # (auto) 0.01 K/uL (0.00-0.02); Immature Granulocytes % (auto) 0.1 %; Lymphocytes # (auto) 2.39 K/uL (1.2-3.4); Lymphocytes % (auto) 35.7 %; Mean Corpuscular Hemoglobin 26.2 pg (25-34); Mean Corpuscular Hgb Conc 31.2 g/dL (32-36); Mean Corpuscular Volume 84.2 fL (80-100); Mean Platelet Volume 10.4 fL (7.4-10.4); Monocytes # (auto) 0.62 K/uL (0.11-0.59); Monocytes % (auto) 9.3 %; Neutrophils # (auto) 3.41 K/uL (1.4-6.5); Neutrophils % (auto) 51.1 %; Platelet Count 196 K/uL (130-400); RDW Coefficient of Variation 18.5 % (11.5-14.5); RDW Standard Deviation 57.3 fL (36.4-46.3); Red Blood Count 4.61 M/uL (4.2-5.4); White Blood Count 6.69 K/uL (4.8-10.8)
[2020-04-27 06:46] LABS: Alanine Aminotransferase 59 U/L (12-78); Albumin Level 3.2 gm/dl (3.4-5.0); Aspartate Aminotransferase 25 U/L (15-37); Bilirubin Direct < 0.1 mg/dl (0-0.2); Blood Urea Nitrogen 14 mg/dl (7-18); Calcium 8.8 mg/dl (8.5-10.1); Carbon Dioxide 31 mmol/L (21-32); Chloride 106 mmol/L (98-107); Creatinine Clr Calc Pharmacy 104.8 ml/min; Est GFR (African American) 111.8; Est GFR (Non-African American) 96.5; Glucose 73 mg/dl (70-99); Magnesium 2.1 mg/dl (1.8-2.4); Potassium 3.8 mmol/L (3.5-5.1); Sodium 139 mmol/L (136-145)
[2020-04-27 06:51] LABS: Alkaline Phosphatase 157 U/L (45-117); Bilirubin,Total 0.5 mg/dl (0.2-1); Total Protein 7.1 gm/dl (6.4-8.2); Troponin I < 0.015 ng/ml (0-0.045)
[2020-04-27] MEDS: HYDROmorphone INJ 1 MG/ML SYRINGE IV PRN ×4 (07:38→23:32)
[2020-04-27] MEDS: PIPERACILLIN/TAZOBACTAM 4.5 GM in DEXTROSE 5% 100 ML IV SCH ×3 (07:38→23:33)
[2020-04-27] MEDS: MULTIVITAMIN CHEWABLE TAB PO SCH (07:42)
[2020-04-27] MEDS: ADVANCED PROBIOTIC 1250 MG CAPSULE PO SCH ×3 (07:42→21:30)
[2020-04-27] MEDS: PANTOprazole 40 MG TAB PO SCH (07:42)
[2020-04-27] MEDS: ASPIRIN 81 MG ECTAB PO SCH (07:42)
[2020-04-27] MEDS: CYANOCOBALAMIN 500 MCG TABLET (VITAMIN B-12) PO SCH (07:42)
[2020-04-27] MEDS: FOLIC ACID 400 MCG TAB PO SCH ×2 (07:43→21:29)
[2020-04-27] MEDS: DULoxetine HCL 30 MG CAP PO SCH ×2 (07:43→21:28)
[2020-04-27] MEDS: DOCUSATE SODIUM 100 MG CAP PO SCH ×2 (07:43→21:27)
[2020-04-27] MEDS: FERROUS SULFATE 325 MG TAB PO SCH (07:43)
[2020-04-27] MEDS: CALCIUM 600MG + VIT D 400 IU TAB PO SCH (07:43)
[2020-04-27] MEDS: PSYLLIUM 58.6% POWDER PACKET PO SCH (07:44)
[2020-04-27] MEDS: CHOLECALCIFEROL 1,000 UNITS 25 MCG TAB PO SCH (07:44)
--- NOTE | 2020-04-27 09:57 | Orthopedic Consultation ---
Date of Consultation April 27, 2020 Assessment & Plan (1) Nonhealing ulcer of left lower extremity limited to breakdown of skin: Nonhealing ulcer of the plantar aspect of the great toe and underlying mild erosive changes of the talus concerning for osteomyelitis. Patient responding well to IV antibiotics. Would like to obtain baseline vascular studies of the left lower extremity and MRI of the left foot. If vascular studies normal patient would likely benefit from a prolonged course of IV antibiotics. I discussed with the patient at length that her pressure ulcer may recur secondary to prior fusion and toe positioning. We discussed follow-up with foot and ankle specialist, Dr. Westfall to discuss any further intervention if patient responds favorably to conservative treatment at this time. Would recommend continued wound care and IV antibiotics at this time. Trend inflamm atory labs. Patient may weight-bear through her heel on her left lower extremity. Recommend assistive device with ambulation. Ice and elevation. Thank you for the consultation. History of Present Illness Reason for Consultation: Left great toe pressure ulcer, cellulitis and distal osteomyelitis Attending Physician: Fidelia Riggs MD History of Present Illness Patient is a 64-year-old female who presented to [facility] secondary to increasing pain and cellulitis to her left lower extremity. Has a significant history with multiple surgeries including resection of metatarsal heads of the third fourth and fifth digits and prior osteo. Recently had removal of hardware in the spring. Has a prior fusion of her first MTP. Patient had recent hospitalization on 04/03/2020 for similar complaints and was discharged on oral antibiotics. She is followed by wound care clinic. The patient is complaining of increasing pain, nonhealing pressure ulcer to the plantar aspect of her great toe and increasing redness to her left foot. X-rays of the left foot concerning for osteomyelitis, mild erosive changes of the beata of the distal phalanges of the great toe. Prior CT on 03/31/2020 showed similar findings. Patient reports improvement in the redness to her left foot since being admitted and started on IV antibiotics. Currently denies fevers, chills, nausea, shortness of breath or chest pain. Allergies Allergy/AdvReac Type Severity Reaction Status Date / Time aspirin Allergy Severe Asthma Verified 04/26/20 21:46 symptoms NSAIDS (Non-Steroidal Allergy Intermediate TRIGGERS Verified 04/26/20 21:46 Anti-Inflamma ASTHMA latex Allergy Mild RASH Verified 04/26/20 21:46 red dye Allergy Verified 04/27/20 13:36 hydrocodone AdvReac Intermediate UPSET Verified 04/26/20 21:46 STOMACH lorazepam AdvReac Intermediate SLEEP Verified 04/26/20 21:46 WALKING phenylpropanolamine AdvReac Intermediate ELEVATED Verified 04/26/20 21:46 BLOOD PRESSURE zolpidem AdvReac Intermediate SLEEP Verified 04/26/20 21:46 WALKING docusate AdvReac Mild LIQUID Verified 04/26/20 21:46 COLACE "VOMITING" Home Medications Medication Instructions Recorded Confirmed Type Morphine pain pump 1 dose INTRATHECAL DIRECTED 03/21/18 04/26/20 History acetaminophen 325 mg capsule 650 mg PO Q4H PRN cap 03/21/18 04/26/20 History albuterol sulfate 90 mcg/actuation 2 puffs INH QID PRN 03/21/18 04/26/20 History aerosol inhaler aspirin 81 mg tablet,delayed 81 mg PO QAM 03/21/18 04/26/20 History release cholecalciferol (vitamin D3) 125 5,000 units PO QAM 03/21/18 04/26/20 History mcg (5,000 unit) capsule cyanocobalamin (vitamin B-12) 1,000 mcg PO QAM 03/21/18 04/26/20 History 1,000 mcg tablet dicyclomine 10 mg capsule 10 mg PO QID PRN 03/21/18 04/26/20 History docusate sodium 100 mg capsule 100 mg PO BID 03/21/18 04/26/20 History folic acid 400 mcg tablet 400 mcg PO BID tab 03/21/18 04/26/20 History verapamil 180 mg tablet,extended 180 mg PO HS 03/21/18 04/26/20 History release omeprazole 20 mg PO DAILY 08/17/18 04/26/20 History baclofen 1 dose INTRATHECAL DIRECTED 07/14/19 04/26/20 History Flintstones Multivitamin 2 tab PO DAILY 03/31/20 04/26/20 History Probiotic See Rx Instructions .ROUTE .COMPLEX 03/31/20 04/26/20 History calcium carbonate-vitamin D3 1 tab PO DAILY 03/31/20 04/26/20 History [Calcium 600 + D(3)] duloxetine See Rx Instructions .ROUTE .COMPLEX 03/31/20 04/26/20 History trazodone 150 mg PO HS 03/31/20 04/26/20 History cephalexin 500 mg PO QID 04/26/20 04/26/20 History ferrous sulfate [iron] 325 mg PO QAM 04/26/20 04/26/20 History morphine 15 mg PO BID PRN 04/26/20 04/26/20 History psyllium husk [Metamucil] 0 g PO DAILY 04/26/20 04/26/20 History Patient History Medical History Anemia H/O IRON INFUSIONS Anxiety due to invasive procedure reports severe anxiety with all surgical procedures since CVA with cardiac cath 2011 Asthma Chronic back pain Degenerative disc disease Depression H/O GERD (gastroesophageal reflux disease) Herniated intervertebral disc of lumbar spine Lumbar post-laminectomy syndrome Migraine H/O Neuropathy of left foot Osteoarthritis Post traumatic stress disorder Presence of intrathecal pump Ruptured lumbar disc Sleep apnea BIPAP Stroke 2011 DURING CARDIAC CATH. LOSS OF PERIPHERAL VISION. Tachycardia Surgical History Gastric bypass status for obesity H/O section H/O shoulder surgery REMOVAL OF LEFT DISTAL CLAVICLE R/T SEVERE OA History of cardiac cath 2011. NO STENTS. REPORTS SHE HAD A STROKE DURING PROCEDURE. History of colonoscopy History of esophagogastroduodenoscopy (EGD) History of foot surgery Left History of surgery 08/31/2018 [facility] - Removal of hardware from left foot & resection of three, four, five metatarsal heads Hx of cholecystectomy Family History Grandmother Family history of diabetes mellitus Mother Family history of diabetes mellitus Aunt Family history of diabetes mellitus Social History Smoking Status: Never smoker Tobacco Type: Cigarettes Second Hand Exposure: Yes (as a child); Hx Alcohol Use: Yes Alcohol type: wine Preferred Language: Polish Communication Ability: Effective Visual Impairment: Blindness Hearing Ability: Normal Supervisor Curing Room Required: No Beliefs That Will Affect Care: None marital status: Current Living Situation: Spouse current occupational status: disabled Other Information That Helps Us Care for You: Yes Feels Safe at Home: Yes Safety Concerns: Feels Safe At This Time Assistive Devices: Glasses Review of Systems Review of Systems: All systems reviewed & are unremarkable except as noted in HPI & below Constitutional: as per Subjective / HPI Physical Exam Physical Exam: Left lower extremity, +2 dorsalis pedis pulse, exquisitely tender to the great toe to light touch, mild erythema localized to the great toe and mild edema. Plantar aspect of the great toe superficial pressure ulceration x2 measuring 2 cm x 1 cm and 2.5 cm x 1 cm. No foul odor or drainage. Ulceration bed appears clean and dry. No necrotic tissue. Skin edges and wound bed appear healthy. Constitutional: WD/WN, vitals as above Results & Data ([facility]) Vital Signs (Past 12 Hours) Vital Signs Temp Pulse Pulse Resp BP BP Pulse Ox 04/27/20 07:11 36.5 C 69 16 105/70 95 04/27/20 07:00 66 04/27/20 03:20 36.5 C 72 18 130/79 95 04/27/20 00:39 36.5 C 77 18 139/87 93 04/26/20 23:24 81 18 100/77 95 04/26/20 22:42 89 16 105/89 98 Laboratory Results 04/27/20 04/27/20 04/26/20 Range/Units 05:55 05:55 23:25 WBC 6.69 (4.8-10.8) K/uL RBC 4.61 (4.2-5.4) M/uL Hgb 12.1 (12.0-16.0) g/dL Hct 38.8 (37-47) % MCV 84.2 (80-100) fL MCH 26.2 (25-34) pg MCHC 31.2 L (32-36) g/dL RDW Std Deviation 57.3 H (36.4-46.3) fL RDW Coeff of Ricardo 18.5 H (11.5-14.5) % Plt Count 196 (130-400) K/uL MPV 10.4 (7.4-10.4) fL Immature Gran % (Auto) 0.1 % Neut % (Auto) 51.1 % Lymph % (Auto) 35.7 % Hardeman % (Auto) 9.3 % Eos % (Auto) 3.4 % Baso % (Auto) 0.4 % Neut # (Auto) 3.41 (1.4-6.5) K/uL Lymph # (Auto) 2.39 (1.2-3.4) K/uL Hardeman # (Auto) 0.62 H (0.11-0.59) K/uL Eos # (Auto) 0.23 (0-0.5) K/uL Baso # (Auto) 0.03 (0-0.2) K/uL Immature Gran # (Auto) 0.01 (0.00-0.02) K/uL ESR (0-21) mm/hr Sodium 139 (136-145) mmol/L Potassium 3.8 (3.5-5.1) mmol/L Chloride 106 (98-107) mmol/L Carbon Dioxide 31 (21-32) mmol/L Anion Gap 2.0 L (3-11) BUN 14 (7-18) mg/dl Creatinine 0.61 (0.6-1.2) mg/dl Est Cr Clr Drug Dosing 104.8 ml/min Est GFR ( Amer) 111.8 Est GFR (Non-Af Amer) 96.5 BUN/Creatinine Ratio 22.0 H (10-20) Glucose 73 (70-99) mg/dl Calcium 8.8 (8.5-10.1) mg/dl Magnesium 2.1 (1.8-2.4) mg/dl Total Bilirubin 0.5 (0.2-1) mg/dl Direct Bilirubin < 0.1 (0-0.2) mg/dl AST 25 (15-37) U/L ALT 59 (12-78) U/L Alkaline Phosphatase 157 H (45-117) U/L Troponin I < 0.015 (0-0.045) ng/ml C-Reactive Protein (0-0.29) mg/dl Total Protein 7.1 (6.4-8.2) gm/dl Albumin 3.2 L (3.4-5.0) gm/dl SARS-CoV-2 Ag (Rapid) Negative (Negative) 04/26/20 04/26/20 04/26/20 Range/Units 21:24 21:24 21:24 WBC 8.54 (4.8-10.8) K/uL RBC 5.07 (4.2-5.4) M/uL Hgb 13.6 (12.0-16.0) g/dL Hct 42.4 (37-47) % MCV 83.6 (80-100) fL MCH 26.8 (25-34) pg MCHC 32.1 (32-36) g/dL RDW Std Deviation 56.1 H (36.4-46.3) fL RDW Coeff of Ricardo 18.4 H (11.5-14.5) % Plt Count 199 (130-400) K/uL MPV 10.2 (7.4-10.4) fL Immature Gran % (Auto) 0.2 % Neut % (Auto) 61.6 % Lymph % (Auto) 27.8 % Hardeman % (Auto) 6.9 % Eos % (Auto) 2.9 % Baso % (Auto) 0.6 % Neut # (Auto) 5.26 (1.4-6.5) K/uL Lymph # (Auto) 2.37 (1.2-3.4) K/uL Hardeman # (Auto) 0.59 (0.11-0.59) K/uL Eos # (Auto) 0.25 (0-0.5) K/uL Baso # (Auto) 0.05 (0-0.2) K/uL Immature Gran # (Auto) 0.02 (0.00-0.02) K/uL ESR 43 H (0-21) mm/hr Sodium 139 (136-145) mmol/L Potassium 4.1 (3.5-5.1) mmol/L Chloride 105 (98-107) mmol/L Carbon Dioxide 31 (21-32) mmol/L Anion Gap 3.0 (3-11) BUN 16 (7-18) mg/dl Creatinine 0.68 (0.6-1.2) mg/dl Est Cr Clr Drug Dosing 94.5 ml/min Est GFR ( Amer) 107.9 Est GFR (Non-Af Amer) 93.1 BUN/Creatinine Ratio 23.0 H (10-20) Glucose 91 (70-99) mg/dl Calcium 9.3 (8.5-10.1) mg/dl Magnesium (1.8-2.4) mg/dl Total Bilirubin (0.2-1) mg/dl Direct Bilirubin (0-0.2) mg/dl AST (15-37) U/L ALT (12-78) U/L Alkaline Phosphatase (45-117) U/L Troponin I (0-0.045) ng/ml C-Reactive Protein 0.57 H (0-0.29) mg/dl Total Protein (6.4-8.2) gm/dl Albumin (3.4-5.0) gm/dl SARS-CoV-2 Ag (Rapid) (Negative) Diagnostic Findings LEFT FOOT 3 VIEWS CLINICAL HISTORY: First toe pain. FINDINGS: 3 views of the left foot are compared to study dated 03/08/[address] of the foot dated 03/31/2020. The skeletal structures are osteopenic. No acute fracture is identified. A surgical anchor is present in the calcaneus. There are large dorsal and plantar calcaneal enthesophytes, as well as degenerative spurring along the dorsal aspect of the tarsal bones. There has been amputation of the second toe through the distal interphalangeal joint. No acute fracture is seen. There is fusion of the first metatarsophalangeal joint. Erosive change versus osteotomy is present involving the second through fifth metatarsal necks. Osteotomy is also suggested involving the third proximal phalanx. Erosive change is again seen involving the tuft of the first distal phalanx with mild sclerosis. Soft tissue edema is present throughout the foot, greatest in the first toe. No subcutaneous gas or radiodense foreign body is identified. IMPRESSION: 1. Findings remain suspicious for osteomyelitis involving the tuft of the first distal phalanx. 2. No acute fracture is seen. 3. Osteopenia with extensive chronic and postoperative changes as above. 4. Diffuse soft tissue edema throughout the foot suggests cellulitis.
--- NOTE | 2020-04-27 11:28 | Cardiology Consultation ---
Date of Consultation April 27, 2020 Assessment & Plan (1) Precordial chest pain: 64-year-old female admitted with difficulties with nonhealing left great toe ulcer. Has had persistent chest pain nearly continuously since mechanical fall in February. Symptoms worse with positional change and movement. And not consistent with cardiac etiology. Would recommend EKG and will review echocardiogram for completeness Treat underlying medical issues History of Present Illness Reason for Consultation: Atypical chest pain Requesting Physician: Dr. Tucker Attending Physician: Fidelia Riggs MD History of Present Illness Patient is a 64-year-old female referred for inpatient management of an osteomyelitis of the left great toe. Patient referred for cardiac evaluation. History is notable for mechanical fall in February 2020 falling face first onto a chair and table. Since that event she has had continued difficulty with intermittent sharp pain across her sternum and back worse when bending forward or twisting. No specific exertional relationship. No prior history of cardiac disease, rheumatic fever scarlet fever heart murmur Patient saw PCP recently was recommended to undergo echocardiogram and CT scan of the chest due to symptoms. Most recent EKG 03/31/2020 normal, none done this admission. Initial troponin normal no familial history of coronary artery disease. Underlying issues include diabetes mellitus obstructive sleep apnea. No history of hyperlipidemia Allergies Allergy/AdvReac Type Severity Reaction Status Date / Time aspirin Allergy Severe Asthma Verified 04/26/20 21:46 symptoms NSAIDS (Non-Steroidal Allergy Intermediate TRIGGERS Verified 04/26/20 21:46 Anti-Inflamma ASTHMA latex Allergy Mild RASH Verified 04/26/20 21:46 hydrocodone AdvReac Intermediate UPSET Verified 04/26/20 21:46 STOMACH lorazepam AdvReac Intermediate SLEEP Verified 04/26/20 21:46 WALKING phenylpropanolamine AdvReac Intermediate ELEVATED Verified 04/26/20 21:46 BLOOD PRESSURE zolpidem AdvReac Intermediate SLEEP Verified 04/26/20 21:46 WALKING docusate AdvReac Mild LIQUID Verified 04/26/20 21:46 COLACE "VOMITING" Home Medications Medication Instructions Recorded Confirmed Type Morphine pain pump 1 dose INTRATHECAL DIRECTED 03/21/18 04/26/20 History acetaminophen 325 mg capsule 650 mg PO Q4H PRN cap 03/21/18 04/26/20 History albuterol sulfate 90 mcg/actuation 2 puffs INH QID PRN 03/21/18 04/26/20 History aerosol inhaler aspirin 81 mg tablet,delayed 81 mg PO QAM 03/21/18 04/26/20 History release cholecalciferol (vitamin D3) 125 5,000 units PO QAM 03/21/18 04/26/20 History mcg (5,000 unit) capsule cyanocobalamin (vitamin B-12) 1,000 mcg PO QAM 03/21/18 04/26/20 History 1,000 mcg tablet dicyclomine 10 mg capsule 10 mg PO QID PRN 03/21/18 04/26/20 History docusate sodium 100 mg capsule 100 mg PO BID 03/21/18 04/26/20 History folic acid 400 mcg tablet 400 mcg PO BID tab 03/21/18 04/26/20 History verapamil 180 mg tablet,extended 180 mg PO HS 03/21/18 04/26/20 History release omeprazole 20 mg PO DAILY 08/17/18 04/26/20 History baclofen 1 dose INTRATHECAL DIRECTED 07/14/19 04/26/20 History Flintstones Multivitamin 2 tab PO DAILY 03/31/20 04/26/20 History Probiotic See Rx Instructions .ROUTE .COMPLEX 03/31/20 04/26/20 History calcium carbonate-vitamin D3 1 tab PO DAILY 03/31/20 04/26/20 History [Calcium 600 + D(3)] duloxetine See Rx Instructions .ROUTE .COMPLEX 03/31/20 04/26/20 History trazodone 150 mg PO HS 03/31/20 04/26/20 History cephalexin 500 mg PO QID 04/26/20 04/26/20 History ferrous sulfate [iron] 325 mg PO QAM 04/26/20 04/26/20 History morphine 15 mg PO BID PRN 04/26/20 04/26/20 History psyllium husk [Metamucil] 0 g PO DAILY 04/26/20 04/26/20 History Patient History Medical History Anemia H/O IRON INFUSIONS Anxiety due to invasive procedure reports severe anxiety with all surgical procedures since CVA with cardiac cath 2011 Asthma Chronic back pain Degenerative disc disease Depression H/O GERD (gastroesophageal reflux disease) Herniated intervertebral disc of lumbar spine Lumbar post-laminectomy syndrome Migraine H/O Neuropathy of left foot Osteoarthritis Post traumatic stress disorder Presence of intrathecal pump Ruptured lumbar disc Sleep apnea BIPAP Stroke 2011 DURING CARDIAC CATH. LOSS OF PERIPHERAL VISION. Tachycardia Surgical History Gastric bypass status for obesity H/O section H/O shoulder surgery REMOVAL OF LEFT DISTAL CLAVICLE R/T SEVERE OA History of cardiac cath 2011. NO STENTS. REPORTS SHE HAD A STROKE DURING PROCEDURE. History of colonoscopy History of esophagogastroduodenoscopy (EGD) History of foot surgery Left History of surgery 08/31/2018 [facility] - Removal of hardware from left foot & resection of three, four, five metatarsal heads Hx of cholecystectomy Family History Grandmother Family history of diabetes mellitus Mother Family history of diabetes mellitus Aunt Family history of diabetes mellitus Social History Smoking Status: Never smoker Tobacco Type: Cigarettes Second Hand Exposure: Yes (as a child); Hx Alcohol Use: Yes Alcohol type: wine Preferred Language: Welsh Communication Ability: Effective Visual Impairment: Blindness Hearing Ability: Normal Lock Plater Required: No Beliefs That Will Affect Care: None marital status: Current Living Situation: Spouse current occupational status: disabled Other Information That Helps Us Care for You: Yes Feels Safe at Home: Yes Safety Concerns: Feels Safe At This Time Assistive Devices: Glasses Review of Systems Review of Systems: All systems reviewed & are unremarkable except as noted in HPI & below Physical Exam Constitutional: WD/WN, vitals as above + obese; no acute distress Eyes: PERRL, conjunctivae normal, anicteric sclerae ENMT: external ear and nose normal, oropharynx normal Neck: trachea midline, no thyromegaly Respiratory: normal respiratory effort, lungs clear to auscultation Cardiovascular: Rate/Rhythm: regular rate and regular rhythm Heart Sounds: normal S1 and normal S2; no gallop and no murmur Palpation: normal PMI Vessels: normal carotid upstroke and radial pulses present; no JVD and no carotid bruit Extremities: no edema Chest (Breasts): Additional Comments: Tender with motion and palpation Gastrointestinal (Abdomen): normal bowel sounds, soft, nontender, no hepatosplenomegaly Musculoskeletal: no cyanosis or clubbing, extremities motor strength 5/5 Skin: no rashes, warm and dry Ulcer left great toe Neurologic: PERRL, EOMI, accommodation nl, no face palsy, no dysarthria Psychiatric: A+Ox3, euthymic affect Results & Data ([facility]) Vital Signs (Past 12 Hours) Vital Signs Temp Pulse Pulse Resp BP BP Pulse Ox 04/27/20 07:11 36.5 C 69 16 105/70 95 04/27/20 07:00 66 04/27/20 03:20 36.5 C 72 18 130/79 95 04/27/20 00:39 36.5 C 77 18 139/87 93
--- NOTE | 2020-04-27 11:57 | Ultrasound Report ---
US arterial duplex LE LT HISTORY: 64 years-old Female r/o PVD peripheral arterial disease. Soft tissue ulcer of the left grea t toe. COMPARISON: Left foot CT 03/31/2020 TECHNIQUE: Multiple real-time sonographic images of the left lower extremity arterial structures were obtained assessing grayscale appearance, color and spectral flow. Segmental blood pressures were als o obtained. FINDINGS: Segmental pressures: Brachial-100 (index); posterior tibial-138 (1.31); dorsalis pedis-129 (1.23) Triphasic waveforms noted throughout the left lower extremity. No arterial occlusion or elevated peak systolic velocities to suggest high-grade stenosis. IMPRESSION: 1. Triphasic waveforms throughout the left lower extremity. 2. No arterial occlusion or elevated peak systolic velocities to suggest high-grade stenosis. ACT 112: Negative or not required by law. The above report was generated using voice recognition software. It may contain grammatical, syntax o r spelling errors. Electronically signed by: Walter Hoff M.D. 04/27/2020 11:56 AM
[2020-04-27] MEDS: CARBOHYDRATES FOR HYPOGLYCEMIA PO PRN (16:45)
[2020-04-27] MEDS ORDERED: DEXTROSE 50% 50 ML SYRINGE IV PRN (17:08)
[2020-04-27] MEDS ORDERED: GLUCOSE 10 TABS/TUBE PO PRN (17:08)
[2020-04-27] MEDS ORDERED: GLUCAGON FOR INJ 1 MG VIAL SQ PRN (17:08)
[2020-04-27] MEDS ORDERED: GLUCOSE 40% GEL 15 GM TUBE PO PRN (17:08)
--- NOTE | 2020-04-27 17:10 | Hospitalist Progress Note ---
Date of Service April 27, 2020 Assessment & Plan (1) Osteomyelitis of great toe of left foot: has chronic non healing wound on left great toe presents with worsening of pain Xray of foot shows evidence of osteomyelitis on left gt toe on broad spectum Abx appreciated input from [facility] MRI of left foot ordered pt has pain pump management by Dr Campos pain pump may have to be reprogrammed after MRI scan pain management consulted Admission and Anticipated Discharge Date Admission Date: April 26, 2020 Subjective Follow up visit for left great toe Ostemyelitis complains of right great toe pain no fever or chills tolerating Abx tx Review of Systems Musculoskeletal: left foot pain Physical Exam Constitutional: WD/WN, vitals as above Eyes: PERRL, conjunctivae normal, anicteric sclerae ENMT: external ear and nose normal, oropharynx normal Neck: trachea midline, no thyromegaly Respiratory: normal respiratory effort, lungs clear to auscultation Cardiovascular: RRR, no murmur, no edema Gastrointestinal (Abdomen): normal bowel sounds, soft, nontender, no hepatosplenomegaly Musculoskeletal: Extremities: + foot abnormality (shallow ulcer on the bottom of L gt toe ) Left Neurologic: PERRL, EOMI, accommodation nl, no face palsy, no dysarthria Psychiatric: A+Ox3, euthymic affect Results & Data Results & Data ([facility]) Vital Signs (Past 12 Hours) Vital Signs Temp Pulse Pulse Resp BP Pulse Ox 04/27/20 16:00 76 04/27/20 15:19 36.5 C 82 18 117/73 96 04/27/20 11:48 36.4 C L 60 16 115/72 98 04/27/20 07:11 36.5 C 69 16 105/70 95 04/27/20 07:00 66
[2020-04-27] MEDS: MoRPHine SULFATE IR 15 MG TAB (IMMEDIATE RELEASE) PO SCH (21:26)
[2020-04-27] MEDS: VERAPAMIL HCL 180 MG TABCR PO SCH (21:27)
[2020-04-27] MEDS: traZODone HCL 50 MG TAB PO SCH (21:29)
[2020-04-28 00:53] LABS: Appearance Urine Clear (Clear); Bacteria Urine Automated Negative (Negative); Bilirubin Urine Negative (Negative); Blood Urine Negative (Negative); Color Urine Yellow; Glucose Urine UA Negative (Negative); Ketones Urine Negative (Negative); Leukocyte Esterase Urine 1+ (Negative); Nitrite Urine Negative (Negative); Protein Urine Negative (Negative); RBC Urine Automated 0-4 /hpf (0-4); Specific Gravity Urine 1.007 (1.000-1.030); Urobilinogen Urine Negative (Negative)
[2020-04-28] MEDS: DAPTOmycin 425 MG in SYRINGE 0 ML IV SCH (01:06)
[2020-04-28] MEDS: HYDROmorphone INJ 1 MG/ML SYRINGE IV PRN ×4 (02:32→16:49)
--- NOTE | 2020-04-28 08:47 | Electrocardiogram Report ---
Test Reason : Blood Pressure : / mmHG Vent. Rate : 065 BPM Atrial Rate : 065 BPM P-R Int : 154 ms QRS Dur : 070 ms QT Int : 420 ms P-R-T Axes : 017 016 033 degrees QTc Int : 436 ms Normal sinus rhythm Normal ECG When compared with ECG of 31-MAR-2020 18:38, No significant change was found Confirmed by Ric Adler ([id number]) on 04/28/2020 8:46:57 AM Referred By: REFERRED SELF Confirmed By:Ric Adler
[2020-04-28] MEDS: CHOLECALCIFEROL 1,000 UNITS 25 MCG TAB PO SCH (08:48)
[2020-04-28] MEDS: PIPERACILLIN/TAZOBACTAM 4.5 GM in DEXTROSE 5% 100 ML IV SCH ×2 (08:48→16:34)
[2020-04-28] MEDS: ADVANCED PROBIOTIC 1250 MG CAPSULE PO SCH ×3 (08:49→21:03)
[2020-04-28] MEDS: CALCIUM 600MG + VIT D 400 IU TAB PO SCH (08:49)
[2020-04-28] MEDS: MULTIVITAMIN CHEWABLE TAB PO SCH (08:49)
[2020-04-28] MEDS: PANTOprazole 40 MG TAB PO SCH (08:49)
[2020-04-28] MEDS: DOCUSATE SODIUM 100 MG CAP PO SCH ×2 (08:50→20:59)
[2020-04-28] MEDS: DULoxetine HCL 30 MG CAP PO SCH ×2 (08:50→21:00)
[2020-04-28] MEDS: ASPIRIN 81 MG ECTAB PO SCH (08:50)
[2020-04-28] MEDS: FERROUS SULFATE 325 MG TAB PO SCH (08:50)
[2020-04-28] MEDS: FOLIC ACID 400 MCG TAB PO SCH ×2 (08:51→21:01)
[2020-04-28] MEDS: CYANOCOBALAMIN 500 MCG TABLET (VITAMIN B-12) PO SCH (08:51)
[2020-04-28] MEDS: PSYLLIUM 58.6% POWDER PACKET PO SCH (08:51)
[2020-04-28] MEDS: MoRPHine SULFATE IR 15 MG TAB (IMMEDIATE RELEASE) PO SCH ×2 (09:04→21:01)
--- NOTE | 2020-04-28 17:01 | Hospitalist Progress Note ---
Date of Service April 28, 2020 Assessment & Plan (1) Osteomyelitis of great toe of left foot: hx of chronic non healing wound on left great toe presents with worsening of pain Xray of foot shows evidence of osteomyelitis on left gt toe on broad spectum Abx appreciated input from [facility] MRI of left foot was ordered , cancelled as pain pump may have to be reprogrammed after MRI scan pt has pain pump management by Dr Campos pain management consulted - cont IV Daptomycin /Zosyn FULL CODE DVT Prophylaxis: sub q heparin Admission and Anticipated Discharge Date Admission Date: April 26, 2020 Subjective Follow up visit for left great toe Ostemyelitis left foot pain better controlled today no fever or chills tolerating abx well Review of Systems Review of Systems: All systems reviewed & are unremarkable except as noted in HPI & below Constitutional: no fever and no chills Respiratory: no cough, no dyspnea and no wheezing Cardiovascular: no chest pain Physical Exam Constitutional: WD/WN, vitals as above Eyes: PERRL, conjunctivae normal, anicteric sclerae ENMT: external ear and nose normal, oropharynx normal Neck: trachea midline, no thyromegaly Respiratory: normal respiratory effort, lungs clear to auscultation Cardiovascular: RRR, no murmur, no edema Gastrointestinal (Abdomen): normal bowel sounds, soft, nontender, no hepatosplenomegaly Musculoskeletal: Extremities: + foot abnormality (shallow ulcer on the bottom of L gt toe ) Neurologic: PERRL, EOMI, accommodation nl, no face palsy, no dysarthria Psychiatric: A+Ox3, euthymic affect Results & Data Results & Data ([facility]) Vital Signs (Past 12 Hours) Vital Signs Temp Pulse Pulse Pulse Resp BP BP 04/28/20 15:59 36.6 C 91 H 18 116/81 04/28/20 11:17 36.7 C 80 16 106/71 04/28/20 08:00 66 04/28/20 06:34 36.4 C L 77 18 121/82 04/28/20 05:03 36.9 C 89 20 146/74 H Pulse Ox 04/28/20 15:59 95 04/28/20 11:17 95 04/28/20 08:00 04/28/20 06:34 95 04/28/20 05:03 91
[2020-04-28] MEDS ORDERED: BACLOFEN IT SCH (17:15)
[2020-04-28] MEDS ORDERED: BACLOFEN PAIN PUMP INT SPINAL SCH (17:45)
--- NOTE | 2020-04-28 19:55 | XRay Report ---
TWO VIEW CHEST CLINICAL HISTORY: Atypical chest pain. Dyspnea. FINDINGS: PA and lateral chest radiographs are compared to study dated 05/26/2017. The cardiomediasti nal silhouette is unremarkable. There is mild elevation of right hemidiaphragm and bibasilar atelecta sis. No airspace consolidation or pleural effusion is seen. There is no pneumothorax. The skeletal st ructures are osteopenic. A mild chronic compression deformity is noted in the upper lumbar spine. The bony thorax is otherwise intact. There is chronic widening at the left AC joint. Cholecystectomy cli ps are seen in the right upper quadrant. IMPRESSION: No active disease in the chest. ACT 112: Negative or not required by law. Electronically signed by: Michael Diaz M.D. 04/28/2020 7:53 PM
[2020-04-28] MEDS: VERAPAMIL HCL 180 MG TABCR PO SCH (20:58)
[2020-04-28] MEDS: traZODone HCL 50 MG TAB PO SCH (21:00)
[2020-04-28] MEDS: HEPARIN SOD 5,000 UNIT/0.5 ML VIAL SQ SCH (21:01)
[2020-04-29] MEDS: PIPERACILLIN/TAZOBACTAM 4.5 GM in DEXTROSE 5% 100 ML IV SCH ×4 (00:13→23:26)
[2020-04-29] MEDS: DAPTOmycin 425 MG in SYRINGE 0 ML IV SCH (00:14)
[2020-04-29] MEDS: HYDROmorphone INJ 1 MG/ML SYRINGE IV PRN ×5 (00:14→20:42)
[2020-04-29] MEDS: HEPARIN SOD 5,000 UNIT/0.5 ML VIAL SQ SCH ×3 (06:25→20:38)
[2020-04-29] MEDS: CALCIUM 600MG + VIT D 400 IU TAB PO SCH (09:39)
[2020-04-29] MEDS: DOCUSATE SODIUM 100 MG CAP PO SCH ×2 (09:39→20:40)
[2020-04-29] MEDS: CYANOCOBALAMIN 500 MCG TABLET (VITAMIN B-12) PO SCH (09:39)
[2020-04-29] MEDS: CHOLECALCIFEROL 1,000 UNITS 25 MCG TAB PO SCH (09:40)
[2020-04-29] MEDS: PANTOprazole 40 MG TAB PO SCH (09:40)
[2020-04-29] MEDS: MULTIVITAMIN CHEWABLE TAB PO SCH (09:41)
[2020-04-29] MEDS: ADVANCED PROBIOTIC 1250 MG CAPSULE PO SCH ×3 (09:41→20:41)
[2020-04-29] MEDS: MoRPHine SULFATE IR 15 MG TAB (IMMEDIATE RELEASE) PO SCH (09:41)
[2020-04-29] MEDS: ASPIRIN 81 MG ECTAB PO SCH (09:42)
[2020-04-29] MEDS: DULoxetine HCL 30 MG CAP PO SCH ×2 (09:42→20:39)
[2020-04-29] MEDS: PSYLLIUM 58.6% POWDER PACKET PO SCH (09:42)
[2020-04-29] MEDS: FOLIC ACID 400 MCG TAB PO SCH ×2 (09:42→20:41)
[2020-04-29] MEDS: FERROUS SULFATE 325 MG TAB PO SCH (09:43)
[2020-04-29] MEDS: ONDANSETRON INJ 2 MG/ML 2 ML VIAL IV PRN (09:53)
--- NOTE | 2020-04-29 10:04 | Pain Management Consultation ---
Date of Consultation April 29, 2020 Assessment & Plan (1) Presence of intrathecal pump: 1. Intrathecal pump dosing remains at morphine 0.905 mg/day; clonidine 45.27 mcg/day; 22.63 mcg/day. She may continue to utilize MS Contin 15 mg p.o. twice daily as well as breakthrough Percocet. Orders are written. Would recommend utilization of hydromorphone IV if oral meds are unable to reduce pain. 2. Will interrogate intrathecal pump after MRI to confirm that motor stall recovery has occurred. Please call the pain management service once MRI is complete. 3. We will continue to see her as an outpatient for routine intrathecal pump refills. (2) Nonhealing ulcer of left lower extremity limited to breakdown of skin: (3) Pain of left great toe: (4) Osteomyelitis of great toe of left foot: (5) Post laminectomy syndrome: History of Present Illness Attending Physician: Fidelia Riggs MD History of Present Illness 64-year-old female that is well-known to the [facility] pain service with a history of chronic intractable low back pain secondary to lumbar postlaminectomy syndrome that has required the implantation of an intrathecal pump and catheter delivery system. Patient to be seen today for a pump interrogation after MRI. She has osteomyelitis of the left great toe. Patient is currently receiving Cymbalta 60 mg p.o. every afternoon and 30 mg every morning, hydromorphone 1 mg IV every 3 as needed, MS Contin 15 mg p.o. twice daily with mild efficacy. She denies any constitutional complaints or neurological symptoms. Pain Assessment [facility] Combined Pain Scale: 8-Debilitating - Impairs activity. Can't maintain a conversation. Allergies Allergy/AdvReac Type Severity Reaction Status Date / Time aspirin Allergy Severe Asthma Verified 04/26/20 21:46 symptoms NSAIDS (Non-Steroidal Allergy Intermediate TRIGGERS Verified 04/26/20 21:46 Anti-Inflamma ASTHMA latex Allergy Mild RASH Verified 04/26/20 21:46 red dye Allergy Verified 04/27/20 13:36 hydrocodone AdvReac Intermediate UPSET Verified 04/26/20 21:46 STOMACH lorazepam AdvReac Intermediate SLEEP Verified 04/26/20 21:46 WALKING phenylpropanolamine AdvReac Intermediate ELEVATED Verified 04/26/20 21:46 BLOOD PRESSURE zolpidem AdvReac Intermediate SLEEP Verified 04/26/20 21:46 WALKING docusate AdvReac Mild LIQUID Verified 04/26/20 21:46 COLACE "VOMITING" Home Medications Medication Instructions Recorded Confirmed Type Morphine pain pump 1 dose INTRATHECAL DIRECTED 03/21/18 04/26/20 History acetaminophen 325 mg capsule 650 mg PO Q4H PRN cap 03/21/18 04/26/20 History albuterol sulfate 90 mcg/actuation 2 puffs INH QID PRN 03/21/18 04/26/20 History aerosol inhaler aspirin 81 mg tablet,delayed 81 mg PO QAM 03/21/18 04/26/20 History release cholecalciferol (vitamin D3) 125 5,000 units PO QAM 03/21/18 04/26/20 History mcg (5,000 unit) capsule cyanocobalamin (vitamin B-12) 1,000 mcg PO QAM 03/21/18 04/26/20 History 1,000 mcg tablet dicyclomine 10 mg capsule 10 mg PO QID PRN 03/21/18 04/26/20 History docusate sodium 100 mg capsule 100 mg PO BID 03/21/18 04/26/20 History folic acid 400 mcg tablet 400 mcg PO BID tab 03/21/18 04/26/20 History verapamil 180 mg tablet,extended 180 mg PO HS 03/21/18 04/26/20 History release omeprazole 20 mg PO DAILY 08/17/18 04/26/20 History baclofen 1 dose INTRATHECAL DIRECTED 07/14/19 04/26/20 History Flintstones Multivitamin 2 tab PO DAILY 03/31/20 04/26/20 History Probiotic See Rx Instructions .ROUTE .COMPLEX 03/31/20 04/26/20 History calcium carbonate-vitamin D3 1 tab PO DAILY 03/31/20 04/26/20 History [Calcium 600 + D(3)] duloxetine See Rx Instructions .ROUTE .COMPLEX 03/31/20 04/26/20 History trazodone 150 mg PO HS 03/31/20 04/26/20 History cephalexin 500 mg PO QID 04/26/20 04/26/20 History ferrous sulfate [iron] 325 mg PO QAM 04/26/20 04/26/20 History morphine 15 mg PO BID PRN 04/26/20 04/26/20 History psyllium husk [Metamucil] 0 g PO DAILY 04/26/20 04/26/20 History Patient History Medical History Anemia H/O IRON INFUSIONS Anxiety due to invasive procedure reports severe anxiety with all surgical procedures since CVA with cardiac cath 2011 Asthma Chronic back pain Degenerative disc disease Depression H/O GERD (gastroesophageal reflux disease) Herniated intervertebral disc of lumbar spine Lumbar post-laminectomy syndrome Migraine H/O Neuropathy of left foot Osteoarthritis Post traumatic stress disorder Presence of intrathecal pump Ruptured lumbar disc Sleep apnea BIPAP Stroke 2011 DURING CARDIAC CATH. LOSS OF PERIPHERAL VISION. Tachycardia Surgical History Gastric bypass status for obesity H/O section H/O shoulder surgery REMOVAL OF LEFT DISTAL CLAVICLE R/T SEVERE OA History of cardiac cath 2011. NO STENTS. REPORTS SHE HAD A STROKE DURING PROCEDURE. History of colonoscopy History of esophagogastroduodenoscopy (EGD) History of foot surgery Left History of surgery 08/31/2018 [facility] - Removal of hardware from left foot & resection of three, four, five metatarsal heads Hx of cholecystectomy Family History Grandmother Family history of diabetes mellitus Mother Family history of diabetes mellitus Aunt Family history of diabetes mellitus Social History Smoking Status: Never smoker Tobacco Type: Cigarettes Second Hand Exposure: Yes (as a child); Hx Alcohol Use: Yes Alcohol type: wine Preferred Language: Macedonian Communication Ability: Effective Visual Impairment: Blindness Hearing Ability: Normal [employer] All Source Intelligence Required: No Beliefs That Will Affect Care: None marital status: Current Living Situation: Spouse current occupational status: disabled Other Information That Helps Us Care for You: Yes Feels Safe at Home: Yes Safety Concerns: Feels Safe At This Time Assistive Devices: Special Shoe Physical Exam Physical Exam: GENERAL: female appearing her stated age of 64. Speech and cognition is intact. Mood and affect is appropriate. She is overweight and physically deconditioned. NEURO: Cranial nerves are grossly intact. Patient resides in hospital bed during exam gait not observed. SKIN: Pump site is located in the left lower quadrant without evidence of edema, erythema, or skin breakdown. Nontender to palpation. LOWER EXTREMITIES: Dressing was not removed to inspect left great toe ulcer.
[2020-04-29] MEDS: MoRPHine SULFATE CR 15 MG TABCR PO SCH ×2 (11:22→20:39)
[2020-04-29] MEDS: oxyCODONE/ACETAMINOPHEN 5mg/325mg TAB PO PRN ×3 (11:32→22:32)
--- NOTE | 2020-04-29 11:35 | Magnetic Resonance Report ---
MR forefoot LT w/o con CLINICAL HISTORY: left great toe osteomyelitis COMPARISON STUDY: X-ray dated 04/26/2020, CT scan dated 03/31/2020 FINDINGS: There is fusion of the first metatarsal phalangeal joint. There are erosive changes at the level of t he fused versus metatarsal phalangeal joint. There are deformities involving the heads of the second through fifth metatarsals, possibly postsurgi evy. There is bony erosion involving the tuft of the distal phalanx of the great toe. There is T1 and T2 m arrow edema involving the tuft of the distal phalanx. This is consistent with osteomyelitis. The luz elena jagjit of the distal phalanx demonstrates T2 edema consistent with a reactive osteitis. There is no T1 edema within the more proximal distal phalanx. There is soft tissue edema surrounding the tuft of the distal phalanx of the great toe consistent wit h an infection. Images were acquired in the axial, sagittal, and coronal planes. There are no fluid collections to indicate a drainable abscess. IMPRESSION: 1. Erosive changes involving the distal tuft of the distal phalanx of the great toe. 2. T1 and T2 edema involving the distal tuft of the great toe, a finding indicative of osteomyelitis. The more proximal aspects of the distal phalanx demonstrate T2 but no T1 edema indicating an adjacen t reactive osteitis 3. Chronic deformities involving the heads of the second through fifth metatarsals. Bony fusion of th e first metatarsal phalangeal joint. ACT 112: Negative or not required by law. Electronically signed by: Ajit Larios M.D. 04/29/2020 11:33 AM
[2020-04-29] MEDS: PROCHLORPERAZINE 10 MG in SYRINGE 8 ML IV PRN (13:23)
--- NOTE | 2020-04-29 15:04 | Communication Note ---
Date of Service: April 29, 2020 ATTENDING NOTE : MRI Of left foot : IMPRESSION: 1. Erosive changes involving the distal tuft of the distal phalanx of the great toe. 2. T1 and T2 edema involving the distal tuft of the great toe, a finding indicative of osteomyelitis. The more proximal aspects of the distal phalanx demonstrate T2 but no T1 edema indicating an adjacent reactive osteitis MRI report updated to Orthopedics Pt will be continued with IV Daptomycin and Opal GRANADOS consulted Fidelia Riggs MD
--- NOTE | 2020-04-29 17:18 | Hospitalist Progress Note ---
Date of Service April 29, 2020 Assessment & Plan (1) Osteomyelitis of great toe of left foot: hx of chronic non healing wound on left great toe presents with worsening of pain Xray of foot shows evidence of osteomyelitis on left gt toe MRI Of left foot : IMPRESSION: 1. Erosive changes involving the distal tuft of the distal phalanx of the great toe. 2. T1 and T2 edema involving the distal tuft of the great toe, a finding indicative of osteomyelitis. The more proximal aspects of the distal phalanx demonstrate T2 but no T1 edema indicating an adjacent reactive osteitis MRI report updated to Orthopedics-will be evaluated by Ortho team in am Pt will be continued with IV Daptomycin and Zosyn [facility] ID consulted pain management consulted for pain pump adjustment after MRI appreciate input FULL CODE DVT Prophylaxis: sub q heparin DISPOSITION : expected to be discharged home when medically stable Admission and Anticipated Discharge Date Admission Date: April 26, 2020 Subjective Follow up visit for left great toe Ostemyelitis continue to request for pain meds no fever or chills no SOB or cough Review of Systems Review of Systems: All systems reviewed & are unremarkable except as noted in HPI & below Physical Exam Constitutional: WD/WN, vitals as above Eyes: PERRL, conjunctivae normal, anicteric sclerae ENMT: external ear and nose normal, oropharynx normal Neck: trachea midline, no thyromegaly Respiratory: normal respiratory effort, lungs clear to auscultation Cardiovascular: RRR, no murmur, no edema Gastrointestinal (Abdomen): normal bowel sounds, soft, nontender, no hepatosplenomegaly Musculoskeletal: Extremities: + foot abnormality (shallow ulcer on the bottom of L gt toe ) Neurologic: PERRL, EOMI, accommodation nl, no face palsy, no dysarthria Psychiatric: A+Ox3, euthymic affect Results & Data Results & Data ([place]) Vital Signs (Past 12 Hours) Vital Signs Temp Pulse Resp BP BP Pulse Ox 04/29/20 16:00 36.5 C 82 18 139/74 94 04/29/20 08:13 36.7 C 72 20 105/70 93
[2020-04-29] MEDS: VERAPAMIL HCL 180 MG TABCR PO SCH (20:39)
[2020-04-29] MEDS: traZODone HCL 50 MG TAB PO SCH (20:40)
[2020-04-30] MEDS: ACETAMINOPHEN 325 MG TAB PO PRN ×2 (00:24→17:33)
[2020-04-30] MEDS: DAPTOmycin 425 MG in SYRINGE 0 ML IV SCH (00:25)
[2020-04-30] MEDS: oxyCODONE/ACETAMINOPHEN 5mg/325mg TAB PO PRN ×3 (06:03→16:22)
[2020-04-30] MEDS: HEPARIN SOD 5,000 UNIT/0.5 ML VIAL SQ SCH ×3 (06:04→22:20)
[2020-04-30] MEDS ORDERED: INSULIN ASPART 100 UNITS/ML 3 ML PEN SC SCH (07:30)
[2020-04-30 08:05] LABS: C Reactive Protein 0.93 mg/dl (0-0.29); Creatinine Clr Calc Pharmacy 110.2 ml/min; Est GFR (African American) 113.7; Est GFR (Non-African American) 98.1
[2020-04-30] MEDS: CALCIUM 600MG + VIT D 400 IU TAB PO SCH (08:23)
[2020-04-30] MEDS: MULTIVITAMIN CHEWABLE TAB PO SCH (08:23)
[2020-04-30] MEDS: CYANOCOBALAMIN 500 MCG TABLET (VITAMIN B-12) PO SCH (08:23)
[2020-04-30] MEDS: FOLIC ACID 400 MCG TAB PO SCH ×2 (08:24→20:34)
[2020-04-30] MEDS: DULoxetine HCL 30 MG CAP PO SCH ×2 (08:24→20:33)
[2020-04-30] MEDS: CHOLECALCIFEROL 1,000 UNITS 25 MCG TAB PO SCH (08:24)
[2020-04-30] MEDS: FERROUS SULFATE 325 MG TAB PO SCH (08:24)
[2020-04-30] MEDS: ASPIRIN 81 MG ECTAB PO SCH (08:24)
[2020-04-30] MEDS: PSYLLIUM 58.6% POWDER PACKET PO SCH (08:25)
[2020-04-30] MEDS: DOCUSATE SODIUM 100 MG CAP PO SCH ×2 (08:25→20:34)
[2020-04-30] MEDS: PANTOprazole 40 MG TAB PO SCH (08:25)
[2020-04-30] MEDS: ADVANCED PROBIOTIC 1250 MG CAPSULE PO SCH ×2 (08:25→20:32)
[2020-04-30] MEDS: PIPERACILLIN/TAZOBACTAM 4.5 GM in DEXTROSE 5% 100 ML IV SCH (08:29)
[2020-04-30] MEDS: INSULIN ASPART 100 UNITS/ML 3 ML PEN SC SCH ×2 (08:39→11:49)
[2020-04-30] MEDS: HYDROmorphone INJ 1 MG/ML SYRINGE IV PRN ×3 (08:40→20:26)
[2020-04-30] MEDS: MoRPHine SULFATE CR 15 MG TABCR PO SCH ×2 (10:12→22:19)
[2020-04-30] MEDS: CARBOHYDRATES FOR HYPOGLYCEMIA PO PRN (11:30)
--- NOTE | 2020-04-30 12:02 | Communication Note ---
Date of Service: April 30, 2020 AM lab reviewed : multiple hypoglycemic episodes noted insulin sliding scale D/arash Hx of TYPE 2 DM not on any diabetic meds at home per pt: BSG has been well controlled after gastric by pass surgery check hbA1c insulin sliding scale D/arash cont to check BSG AC/HS to assess hypoglycemic episode Non healing wound of left great toe: chronic left foot infection /non healing wounds for past 3 yrs had multiple procedures on left foot was seen seen by both podiatry Dr Alfred Nina and [facility] Dr Westfall in past I&D of 3rd middle toe by Dr Westfall in 2017 hx of home group home IV Abx via PICC this admission left great to non healing wound : MRI evidence of left great toe osteomyelitis will defer to Ortho regarding toe amputation recent wound culture 03/19 : Staph MSSA /repeat wound culture this admission : possible contaminated specimen will d/c Zosyn , cont Daptomycin [facility] ID consult requested for duration of abx tx post foot surgery Chronic back pain : has intrathecal pain pump ( Morphine /Baclofen ) follows at the Pain management clinic with Dr Georgiana Campos pt does appears to abuse narcotic pain meds continues to ask for pain meds ( getting IV Dilaudid ) rating left foot pain 10/10 -while appearing very comfortable /sometimes falling sleep before IV pain med available will D/c IV Dilaudid , cont PO pain meds Pain management following Fidelia Riggs MD
[2020-04-30 12:10] LABS: Estimated Average Glucose 108 mg/dl; Hemoglobin A1C 5.4 % (4.5-5.6)
--- NOTE | 2020-04-30 17:22 | Hospitalist Progress Note ---
Date of Service April 30, 2020 Assessment & Plan (1) Osteomyelitis of great toe of left foot: hx of chronic non healing wound on left great toe presents with worsening of pain Xray of foot shows evidence of osteomyelitis on left gt toe MRI Of left foot : IMPRESSION: 1. Erosive changes involving the distal tuft of the distal phalanx of the great toe. 2. T1 and T2 edema involving the distal tuft of the great toe, a finding indicative of osteomyelitis. The more proximal aspects of the distal phalanx demonstrate T2 but no T1 edema indicating an adjacent reactive osteitis MRI report updated to Orthopedics recent wound culture gram positive cocci Iv zosyn D/arsah , cont Iv daptomycin [facility] ID consulted recommends amputation of infected toe pt is low risk to proceed for left great toe surgery chest pain -non cardiac ECHO -diego study no other studies or imaging needed for orthopedic procedure pain management consulted for pain pump adjustment after MRI appreciate input FULL CODE DVT Prophylaxis: sub q heparin DISPOSITION : expected to be discharged home when medically stable Admission and Anticipated Discharge Date Admission Date: April 26, 2020 Subjective Follow up visit for left great toe Osteomyelitis pt reports left foot pain improved after adjustment of pain meds by Dr Campos no fever or chills no other episode of chest pain or SOB stable vitals Review of Systems Review of Systems: All systems reviewed & are unremarkable except as noted in HPI & below Physical Exam Constitutional: WD/WN, vitals as above Eyes: PERRL, conjunctivae normal, anicteric sclerae ENMT: external ear and nose normal, oropharynx normal Neck: trachea midline, no thyromegaly Respiratory: normal respiratory effort, lungs clear to auscultation Cardiovascular: RRR, no murmur, no edema Gastrointestinal (Abdomen): normal bowel sounds, soft, nontender, no hepatosplenomegaly Musculoskeletal: Extremities: + foot abnormality (shallow ulcer on the bottom of L gt toe ) Neurologic: PERRL, EOMI, accommodation nl, no face palsy, no dysarthria Psychiatric: A+Ox3, euthymic affect Results & Data Results & Data ([facility]) Vital Signs (Past 12 Hours) Vital Signs Temp Pulse Resp BP Pulse Ox 04/30/20 16:50 36.7 C 74 19 112/70 93 04/30/20 08:12 36.5 C 69 20 114/75 91
[2020-04-30] MEDS: ONDANSETRON INJ 2 MG/ML 2 ML VIAL IV PRN (17:29)
[2020-04-30] MEDS: PROCHLORPERAZINE 10 MG in SYRINGE 8 ML IV PRN (20:26)
[2020-04-30] MEDS: VERAPAMIL HCL 180 MG TABCR PO SCH (20:32)
[2020-04-30] MEDS: traZODone HCL 50 MG TAB PO SCH (20:32)
[2020-05-01] MEDS: DAPTOmycin 425 MG in SYRINGE 0 ML IV SCH (00:32)
[2020-05-01] MEDS: oxyCODONE/ACETAMINOPHEN 5mg/325mg TAB PO PRN ×3 (01:48→16:29)
[2020-05-01] MEDS: HYDROmorphone INJ 1 MG/ML SYRINGE IV PRN ×3 (04:01→19:04)
[2020-05-01] MEDS: HEPARIN SOD 5,000 UNIT/0.5 ML VIAL SQ SCH ×3 (05:39→22:23)
[2020-05-01] MEDS: DOCUSATE SODIUM 100 MG CAP PO SCH ×3 (08:24→22:22)
[2020-05-01] MEDS: CYANOCOBALAMIN 500 MCG TABLET (VITAMIN B-12) PO SCH (08:24)
[2020-05-01] MEDS: PANTOprazole 40 MG TAB PO SCH (08:24)
[2020-05-01] MEDS: CALCIUM 600MG + VIT D 400 IU TAB PO SCH (08:25)
[2020-05-01] MEDS: DULoxetine HCL 30 MG CAP PO SCH ×2 (08:25→22:19)
[2020-05-01] MEDS: FERROUS SULFATE 325 MG TAB PO SCH (08:25)
[2020-05-01] MEDS: FOLIC ACID 400 MCG TAB PO SCH ×2 (08:25→22:18)
[2020-05-01] MEDS: ASPIRIN 81 MG ECTAB PO SCH (08:26)
[2020-05-01] MEDS: MULTIVITAMIN CHEWABLE TAB PO SCH (08:26)
[2020-05-01] MEDS: CHOLECALCIFEROL 1,000 UNITS 25 MCG TAB PO SCH (08:26)
[2020-05-01] MEDS: ADVANCED PROBIOTIC 1250 MG CAPSULE PO SCH ×2 (08:26→22:18)
[2020-05-01] MEDS: PSYLLIUM 58.6% POWDER PACKET PO SCH (08:27)
[2020-05-01 08:35] LABS: Hematocrit (blood only) 42.1 % (37-47); Hemoglobin 13.1 g/dL (12.0-16.0); Mean Corpuscular Hemoglobin 26.6 pg (25-34); Mean Corpuscular Hgb Conc 31.1 g/dL (32-36); Mean Corpuscular Volume 85.6 fL (80-100); Mean Platelet Volume 10.3 fL (7.4-10.4); Platelet Count 207 K/uL (130-400); RDW Coefficient of Variation 18.2 % (11.5-14.5); RDW Standard Deviation 56.8 fL (36.4-46.3); Red Blood Count 4.92 M/uL (4.2-5.4); White Blood Count 6.02 K/uL (4.8-10.8)
[2020-05-01 08:47] LABS: INR 1.1 (0.9-1.1); Prothrombin Time 11.1 Seconds (9.0-12.0)
[2020-05-01 09:02] LABS: C Reactive Protein 0.61 mg/dl (0-0.29); Creatinine Clr Calc Pharmacy 91.3 ml/min; Est GFR (African American) 106.9; Est GFR (Non-African American) 92.2
[2020-05-01] MEDS: MoRPHine SULFATE CR 15 MG TABCR PO SCH ×2 (09:52→22:20)
--- NOTE | 2020-05-01 14:14 | Hospitalist Progress Note ---
Date of Service May 01, 2020 Assessment & Plan (1) Osteomyelitis of great toe of left foot: Hx of chronic non healing wound on left great toe Present on admission with worsening wound ulcer in L great toe associated with pain MRI showed erosive changes involving the distal tuft of the distal phalanx of the great toe. T1 and T2 edema involving the distal tuft of the great toe, a finding indicative of osteomyelitis. Xray of foot shows evidence of osteomyelitis on left gt toe Iniatily was started on IV Zosyn and dapto ID [facility] on board that recommended to d/c the Zosyn and continue the IV dapto and amputation of left great toe Ortho on board Case disccused with ortho that will evalutae pt later today for possible any surgical intervention Will continue IV dapto for now, and will decide about abx course base ID recommendation Pt is low risk to proceed for left great toe surgery Continue monitor closely Presence of intrathecal pump: Management per Pain Management. Stable DVT prophylaxis: On heparin subq Pt is ambulated Code status Full code Admission and Anticipated Discharge Date Admission Date: April 26, 2020 Subjective Pt was seen and examined. Sitting in bed with no distress. Pt said that she feels ok, but continue to have pain. She was walking in the hallway with no distress She said that if Ortho does not plan to proceed with any surgical intervention for the Left great toe osteomyelitis that she would like to go home She said that she does have some tenderness in left big toe with ambulation Denies any chest pain, palpitation, Dizziness and SOB Physical Exam Physical Exam: General- No acute distress Head- atraumatic Eyes- PERRL, EOMI, ENT- oropharynx clear Neck- supple, no JVD Lungs- clear to auscultation Heart- regular rhythm; no murmur Abdomen- normal bowel sounds, soft, nontender Extremities- no calf tenderness, Left bottom big toe ulcer with demarcated Neuro- alert, oriented x 3; PERRL, EOMI; no facial palsy; no dysarthria Skin- warm & dry Results & Data Results & Data ([facility]) Vital Signs (Past 12 Hours) Vital Signs Temp Pulse Resp BP Pulse Ox 05/01/20 07:21 36.5 C 68 18 114/79 91
--- NOTE | 2020-05-01 17:21 | Orthopedic Progress Note ---
Date of Service May 01, 2020 Assessment & Plan (1) Osteomyelitis of great toe of left foot: Assessment: Osteomyelitis left great toe distal phalanx. Nonhealing diabetic ulcer plantar aspect left great toe. Plan: Continue antibiotic treatment. Discharge home per medical service with daily dressing changes and limited weightbearing left foot in a postop shoe. Will reassess in outpatient clinic. May require amputation distal phalanx left great toe. Thank you for the opportunity to consult in care of this patient. Present on Admission?: Yes (2) Nonhealing ulcer of left lower extremity limited to breakdown of skin: (3) Acute pain of left foot: Admission and Anticipated Discharge Date Admission Date: April 26, 2020 Subjective Patient was seen examined sitting in bedside chair. Having some discomfort on occasion left great toe. Chronic osteomyelitis after Dr. Nina had attempted a fusion of the first metatarsal phalangeal joint. Hardware was subsequently removed and she was treated for osteomyelitis. Physical Exam Physical Exam: Examination left foot notes plantar ulceration of the left great toe. Dystrophic nail plate great toe. Malaligned varus first metatarsal phalangeal joint fusion left great toe. Local edema great toe and forefoot. Palpable pulses. Foot is warm. Sensation intact from the midfoot distal. Tenderness palpation around the first metatarsal phalangeal joint extending distally to the great toe. No active discharge or drainage. Multiple healed surgical incisions left foot. Results & Data ([facility]) Vital Signs (Past 12 Hours) Vital Signs Temp Pulse Resp BP Pulse Ox 05/01/20 15:22 36.4 C L 96 H 20 139/81 95 05/01/20 07:21 36.5 C 68 18 114/79 91
[2020-05-01] MEDS: DICYCLOMINE HCL 10 MG CAP PO PRN ×2 (18:09→22:18)
[2020-05-01] MEDS: PROCHLORPERAZINE 10 MG in SYRINGE 8 ML IV PRN (19:05)
[2020-05-01] MEDS: VERAPAMIL HCL 180 MG TABCR PO SCH (22:19)
[2020-05-01] MEDS: traZODone HCL 50 MG TAB PO SCH (22:19)
[2020-05-02] MEDS: DAPTOmycin 425 MG in SYRINGE 0 ML IV SCH (01:03)
[2020-05-02] MEDS: HYDROmorphone INJ 1 MG/ML SYRINGE IV PRN ×2 (01:04→09:20)
[2020-05-02] MEDS: oxyCODONE/ACETAMINOPHEN 5mg/325mg TAB PO PRN ×2 (05:01→12:42)
[2020-05-02] MEDS: HEPARIN SOD 5,000 UNIT/0.5 ML VIAL SQ SCH (05:01)
[2020-05-02 07:46] LABS: Prothrombin Time 10.8 Seconds (9.0-12.0)
[2020-05-02] MEDS: CALCIUM 600MG + VIT D 400 IU TAB PO SCH (07:46)
[2020-05-02] MEDS: CHOLECALCIFEROL 1,000 UNITS 25 MCG TAB PO SCH (07:46)
[2020-05-02] MEDS: DICYCLOMINE HCL 10 MG CAP PO PRN ×2 (07:46→12:34)
[2020-05-02] MEDS: PANTOprazole 40 MG TAB PO SCH (07:47)
[2020-05-02] MEDS: CYANOCOBALAMIN 500 MCG TABLET (VITAMIN B-12) PO SCH (07:47)
[2020-05-02] MEDS: MULTIVITAMIN CHEWABLE TAB PO SCH (07:47)
[2020-05-02] MEDS: ASPIRIN 81 MG ECTAB PO SCH (07:47)
[2020-05-02] MEDS: ADVANCED PROBIOTIC 1250 MG CAPSULE PO SCH (07:48)
[2020-05-02] MEDS: FERROUS SULFATE 325 MG TAB PO SCH (07:48)
[2020-05-02] MEDS: FOLIC ACID 400 MCG TAB PO SCH (07:48)
[2020-05-02] MEDS: DULoxetine HCL 30 MG CAP PO SCH (07:48)
[2020-05-02] MEDS: PSYLLIUM 58.6% POWDER PACKET PO SCH (07:49)
[2020-05-02] MEDS: DOCUSATE SODIUM 100 MG CAP PO SCH (07:49)
[2020-05-02 08:01] LABS: C Reactive Protein 0.99 mg/dl (0-0.29); Creatinine Clr Calc Pharmacy 95.4 ml/min; Est GFR (African American) 108.4; Est GFR (Non-African American) 93.5
[2020-05-02] MEDS: MoRPHine SULFATE CR 15 MG TABCR PO SCH (09:24)
--- NOTE | 2020-05-02 13:47 | Hospitalist Progress Note ---
Date of Service May 02, 2020 Assessment & Plan (1) Osteomyelitis of great toe of left foot: Hx of chronic non healing wound on left great toe Present on admission with worsening wound ulcer in L great toe associated with pain MRI showed erosive changes involving the distal tuft of the distal phalanx of the great toe. T1 and T2 edema involving the distal tuft of the great toe, a finding indicative of osteomyelitis. Xray of foot shows evidence of osteomyelitis on left gt toe Iniatily was started on IV Zosyn and dapto ID [facility] on board that recommended to d/c the Zosyn and continue the IV dapto and amputation of left great toe Ortho on board Case disccused with ortho that will evalutae pt later today for possible any surgical intervention Dr Westfall saw patient yesterday that recommended to continue antibiotic treatment and will reassess in outpatient clinic for possible amputation distal phalanx left great toe Ok from ortho to discharge with daily dressing changes and limited weightbearing left foot in a postop shoe. On IV dapto for now, will d/c Case discussed with ROBERTA Parker that recommended that pt need a bone cx Recommended Amox/Cla 500mg Q8h for 6 weeks if we cannot get any culture. ID said that not to add another abx without bone for cx case discussed with wound care nurse that will call pt for appointment with Dr. Iniguez Will need to follow up with ID outpatient Follow up with Ortho Presence of intrathecal pump: Management per Pain Management. Stable DVT prophylaxis: On heparin subq Pt is ambulated Code status Full code Admission and Anticipated Discharge Date Admission Date: April 26, 2020 Subjective Follow up for Left great toe osteomylitis Pt was seen and examined Sitting in bed with no distress very inpatient Pt said that she is ready to go home today She said that Dr. Westfall cannot get the procedure done this week She said that she would rather wait for next week to get the procedure arrange outpatient She is already dressed and ready to go home Denies any chest pain, palpitation, dizziness and SOB Physical Exam Physical Exam: General- No acute distress Head- atraumatic Eyes- PERRL, EOMI, ENT- oropharynx clear Neck- supple, no JVD Lungs- clear to auscultation Heart- regular rhythm; no murmur Abdomen- normal bowel sounds, soft, nontender Extremities- no calf tenderness, Left bottom big toe ulcer with demarcated Neuro- alert, oriented x 3; PERRL, EOMI; no facial palsy; no dysarthria Skin- warm & dry Results & Data Results & Data ([facility]) Vital Signs (Past 12 Hours) Vital Signs Temp Pulse Pulse Resp BP BP Pulse Ox 05/02/20 13:39 36.5 C 80 74 18 126/84 139/81 94 05/02/20 07:00 36.5 C 74 18 126/84 94
[2020-05-02] MEDS ORDERED: AMOXICILLIN/CLAVULANATE 500 MG TAB PO SCH (17:00)
--- NOTE | 2020-05-03 08:28 | Discharge Summary ---
Date of Service May 02, 2020 Admission HPI Per Admitting Provider CHIEF COMPLAINT: Infection of the left great toe. HISTORY OF PRESENT ILLNESS: This is a 64-year-old female with past medical history significant for type 2 diabetes, controlled asthma, major depression, neuropathy, intrathecal pump for chronic back pain, history of cerebrovascular accident, central sleep apnea post gastric surgery syndrome, iron deficiency anemia, vitamin D deficiency. The patient is having left great toe ulceration for a long time. She is following with the wound clinic. Initially she was treated with oral Keflex and she was recently in the hospital, admitted on 03/31/2020 and discharged on 04/02/2020. At that time, she was treated with antibiotic Rocephin and also had daptomycin and she was discharged on clindamycin and at that time she was also found to have osteomyelitis. She was discharged on a 6 weeks course of clindamycin. If no improvement, plan for IV antibiotic therapy or surgical intervention. At that time, wound culture grew MSSA.But the patient states since the last few days the pain is increasing and there is also some erythema increasing in the foot region and she was worried that infection is climbing up and she had some ambulatory dysfunction because of the pain, so she came to the ER. Denies any fever, chills. No nausea, no vomiting, no diarrhea, no constipation, no blood in the stools or black stools. Normal bladder movements. Appetite is not that great. Denies any headache. No blurred visions, no earache, no runny nose, no sore throat, no loss of sense of smell or taste. She is also having ongoing chest pain since the last couple of months. It is more positional, but it comes and goes. When it comes, it is 5/10 in severity, radiating to the left arm and there is a plan for echocardiogram as outpatient, but it is not done yet and the patient had a positive dobutamine stress test in 2010 that led to cardiac catheterization. No significant coronary disease was found, but the patient suffered embolic occipital stroke. 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 Admission Exam Per Admitting Provider GENERAL: The patient is obese, not in acute distress. VITAL SIGNS: Temperature 36.9, pulse 89, respiratory rate 16, blood pressure 105/89, oxygen 98% on room air. HEENT: Pupils are equal, round, and reactive to light. Oral mucosa moist. NECK: No JVD. No neck masses. CARDIOVASCULAR: S1, S2 heard. Regular rate and rhythm. No murmur, no gallop. RESPIRATORY SYSTEM: Normal AP diameter. No accessory muscle use. No wheezing, no crackles. ABDOMEN: Soft, bowel sounds present, nontender. No distention. CENTRAL NERVOUS SYSTEM: Cranial nerves II-XII grossly intact, nonfocal. EXTREMITIES: Right great toe posterior aspect ulcers seen with erythematous changes surrounding it and tenderness on palpation. Principal Diagnosis Osteomyelitis of great toe of left foot Chronic non healing wound on left great toe Presence of intrathecal pump Discharge Exam General- No acute distress Head- atraumatic Eyes- PERRL, EOMI, ENT- oropharynx clear Neck- supple, no JVD Lungs- clear to auscultation Heart- regular rhythm; no murmur Abdomen- normal bowel sounds, soft, nontender Extremities- no calf tenderness, Left bottom big toe ulcer with demarcated Neuro- alert, oriented x 3; PERRL, EOMI; no facial palsy; no dysarthria Skin- warm & dry Discharge Data Allergies Allergy/AdvReac Type Severity Reaction Status Date / Time aspirin Allergy Severe Asthma Verified 04/26/20 21:46 symptoms NSAIDS (Non-Steroidal Allergy Intermediate TRIGGERS Verified 04/26/20 21:46 Anti-Inflamma ASTHMA latex Allergy Mild RASH Verified 04/26/20 21:46 red dye Allergy Verified 04/27/20 13:36 hydrocodone AdvReac Intermediate UPSET Verified 04/26/20 21:46 STOMACH lorazepam AdvReac Intermediate SLEEP Verified 04/26/20 21:46 WALKING phenylpropanolamine AdvReac Intermediate ELEVATED Verified 04/26/20 21:46 BLOOD PRESSURE zolpidem AdvReac Intermediate SLEEP Verified 04/26/20 21:46 WALKING docusate AdvReac Mild LIQUID Verified 04/26/20 21:46 COLACE "VOMITING" Consultations 04/26/20 21:07 ED Decision to Admit Stat 04/27/20 00:26 Consult Case Management - Discharge Planning Routine 04/27/20 08:00 Consult Cardiology Routine Consult Orthopedic Surgery Routine 04/27/20 14:19 Consult Pain Management Routine 04/29/20 15:01 Consult Infectious Diseases Routine Ordered Studies 04/27/20 10:09 US doppler leg [US arterial duplex LE LT] Routine 04/29/20 08:33 MR foot LT w/o con Routine MR forefoot LT w/o con CLINICAL HISTORY: left great toe osteomyelitis COMPARISON STUDY: X-ray dated 04/26/2020, CT scan dated 03/31/2020 FINDINGS: There is fusion of the first metatarsal phalangeal joint. There are erosive c hanges at the level of the fused versus metatarsal phalangeal joint. There are deformities involving the heads of the second through fifth metatarsals, possibly postsurgical. There is bony erosion involving the tuft of the distal phalanx of the great toe. There is T1 and T2 marrow edema involving the tuft of the distal phalanx. This is consistent with osteomyelitis. The remainder of the distal phalanx demonstrates T2 edema consistent with a reactive osteitis. There is no T1 edema within the more proximal distal phalanx. There is soft tissue edema surrounding the tuft of the distal phalanx of the great toe consistent with an infection. Images were acquired in the axial, sagittal, and coronal planes. There are no fluid collections to indicate a drainable abscess. IMPRESSION: 1. Erosive changes involving the distal tuft of the distal phalanx of the great toe. 2. T1 and T2 edema involving the distal tuft of the great toe, a finding indicative of osteomyelitis. The more proximal aspects of the distal phalanx demonstrate T2 but no T1 edema indicating an adjacent reactive osteitis 3. Chronic deformities involving the heads of the second through fifth metatarsals. Bony fusion of the first metatarsal phalangeal joint. ACT 112: Negative or not required by law. Electronically signed by: Ajit Larios M.D. 04/29/2020 11:33 AM Dictated: 04/29/20 1126Transcribed: 04/29/20 1126 TWO VIEW CHEST CLINICAL HISTORY: Atypical chest pain. Dyspnea. FINDINGS: PA and lateral chest radiographs are compared to study dated 05/26/2017. The cardiomediastinal silhouette is unremarkable. There is mild elevation of right hemidiaphragm and bibasilar atelectasis. No airspace consolidation or pleural effusion is seen. There is no pneumothorax. The skeletal structures are osteopenic. A mild chronic compression deformity is noted in the upper lumbar spine. The bony thorax is otherwise intact. There is chronic widening at the left AC joint. Cholecystectomy clips are seen in the r ight upper quadrant. IMPRESSION: No active disease in the chest. ACT 112: Negative or not required by law. Electronically signed by: Michael Diaz M.D. 04/28/2020 7:53 PM Dictated: 04/28/201951Transcribed: 04/28/201951 US arterial duplex LE LT HISTORY: 64 years-old Female r/o PVD peripheral arterial disease. Soft tissue ulcer of the left great toe. COMPARISON: Left foot CT 03/31/2020 TECHNIQUE: Multiple real-time sonographic images of the left lower extremity arterial structures were obtained assessing grayscale appearance, color and spectral flow. Segmental blood pressures were also obtained. FINDINGS: Segmental pressures: Brachial-100 (index); posterior tibial-138 (1.31); dorsalis pedis-129 (1.23) Triphasic waveforms noted throughout the left lower extremity. No arterial occlusion or elevated peak systolic velocities to suggest high-grade stenosis. IMPRESSION: 1. Triphasic waveforms throughout the left lower extremity. 2. No arterial occlusion or elevated peak systolic velocities to suggest high- grade stenosis. ACT 112: Negative or not required by law. The above report was generated using voice recognition software. It may contain grammatical, syntax or spelling errors. Electronically signed by: Walter Hoff M.D. 04/27/2020 11:56 AM Dictated: 04/27/201152Transcribed: 04/27/20 115 LEFT FOOT 3 VIEWS CLINICAL HISTORY: First toe pain. FINDINGS: 3 views of the left foot are compared to study dated 03/08/[address] of the foot dated 03/31/2020. The skeletal structures are osteopenic. No acute fracture is identified. A surgical anchor is present in the calcaneus. There are large dorsal and plantar calcaneal enthesophytes, as well as degenerative spurring along the dorsal aspect of the tarsal bones. There has been amputation of the second toe through the distal interphalangeal joint. No acute fracture is seen. There is fusion of the first metatarsophalangeal joint. Erosive change versus osteotomy is present involving the second through fifth metatarsal necks. Osteotomy is also suggested involving the third proximal phalanx. Erosive change is again seen involving the tuft of the first distal phalanx with mild sclerosis. Soft tissue edema is present throughout the foot, greatest in the first toe. No subcutaneous gas or radiodense foreign body is identified. IMPRESSION: 1. Findings remain suspicious for osteomyelitis involving the tuft of the first distal phalanx. 2. No acute fracture is seen. 3. Osteopenia with extensive chronic and postoperative changes as above. 4. Diffuse soft tissue edema throughout the foot suggests cellulitis. Electronically signed by: Michael Diaz M.D. 04/26/2020 8:40 PM Dictated: 04/26/202035Transcribed: 04/26/202035 Hospital Course (1) Osteomyelitis of great toe of left foot: Hx of chronic non healing wound on left great toe Present on admission with worsening wound ulcer in L great toe associated with pain MRI showed erosive changes involving the distal tuft of the distal phalanx of the great toe. T1 and T2 edema involving the distal tuft of the great toe, a finding indicative of osteomyelitis. Xray of foot shows evidence of osteomyelitis on left gt toe Iniatily was started on IV Zosyn and dapto ID [facility] on board that recommended to d/c the Zosyn and continue the IV dapto and amputation of left great toe Ortho on board Case disccused with ortho that will evalutae pt later today for possible any surgical intervention Dr Westfall saw patient yesterday that recommended to continue antibiotic treatment and will reassess in outpatient clinic for possible amputation distal phalanx left great toe Ok from ortho to discharge with daily dressing changes and limited weightbearing left foot in a postop shoe. On IV dapto for now, will d/c Case discussed with ROBERTA Parker that recommended that pt need a bone cx Recommended Amox/Cla 500mg Q8h for 6 weeks if we cannot get any culture. ID said that not to add another abx without bone for cx case discussed with wound care nurse that will call pt for appointment with Dr. Iniguez Will need to follow up with ID outpatient Follow up with Ortho Presence of intrathecal pump: Management per Pain Management. Stable DVT prophylaxis: On heparin subq Pt is ambulated Code status Full code Total Time Total Time Spent Total Time Spent (In Minutes): 35 minutes Total Time Includes: Examination of the Patient, Discharge Planning, Medication Reconciliation, Communication With Other Providers and Other Discharge Plan Discharge Items Patient Disposition: Home - Self-Care Reason For Visit: TOE INFECTION Discharge Diagnosis: Osteomyelitis of great toe of left foot: Chronic non healing wound on left great toe Presence of intrathecal pump: Activity: Resume your previous activity Non-emergency contact: Primary Care Provider, Surgeon and Pain Management Call non-emergency contact if: you have any medication questions and your temperature is above 101.5 Follow-up/Referrals: Jp Mckay MD [Primary Care Provider] - (Date & Time 05/07/2020 11:20 AM Provider Jp Mckay MD [facility] ) Diet: Heart Healthy Addtl Attending Provider Instructions: Follow up with your primary care provider Dr. Mckay in 1 week Follow up with orthopedic dr. Westfall to reassess the left great toe (please call to schedule for the appointment) Follow up with wound care clinic (Office will call your for the appointment) Follow up with infectious disease (your physician will arrange for the referral ) Follow up with pain management Continue antibiotic with Amoxicillin/ clac 500mg q8h Continue daily dressing changes and limited weightbearing left foot in a postop shoe. Pending Studies at Discharge: No Stand-Alone Forms: [facility], Smoking Cessation Medications and DC Order Prescriptions: New amoxicillin-pot clavulanate 500-125 mg Tablet 1 tab PO Q8H 42 Days Qty: 126 RF: 0 Continued verapamil 180 mg tablet extended release 180 mg PO HS RF: 0 cyanocobalamin (vitamin B-12) [Vitamin B-12] 1,000 mcg tablet 1,000 mcg PO QAM RF: 0 folic acid 400 mcg tablet 400 mcg PO BID RF: 0 aspirin [Adult Aspirin Regimen] 81 mg tablet,delayed release (DR/EC) 81 mg PO QAM RF: 0 docusate sodium [Colace] 100 mg capsule 100 mg PO BID RF: 0 albuterol sulfate [Ventolin HFA] 90 mcg/actuation HFA aerosol inhaler 2 puffs INH QID PRN (Reason: Shortness Of Breath Or Wheezing) RF: 0 cholecalciferol (vitamin D3) 5,000 unit capsule 5,000 units PO QAM RF: 0 dicyclomine 10 mg capsule 10 mg PO QID PRN (Reason: Abdominal Pain) RF: 0 acetaminophen [Tylenol] 325 mg capsule 650 mg PO Q4H PRN (Reason: Pain) RF: 0 Morphine pain pump 1 dose Intrathecal DIRECTED RF: 0 baclofen 1 dose intrathecal DIRECTED RF: 0 ferrous sulfate [iron] 325 mg (65 mg iron) Tablet 325 mg PO QAM RF: 0 psyllium husk [Metamucil] 0.4 gram Capsule 0 g PO DAILY RF: 0 omeprazole 20 mg Tablet,Delayed Release (Dr/Ec) 20 mg PO DAILY RF: 0 trazodone 50 mg tablet 150 mg PO HS RF: 0 Flintstones Multivitamin Tablet,Chewable 2 tab PO DAILY RF: 0 duloxetine 30 mg capsule,delayed release(DR/EC) See Rx Instructions .ROUTE .COMPLEX RF: 0 calcium carbonate-vitamin D3 [Calcium 600 + D(3)] 600 mg(1,500mg) -400 unit Tablet 1 tab PO DAILY RF: 0 Probiotic 3 billion cell Capsule See Rx Instructions .ROUTE .COMPLEX RF: 0 Discontinued cephalexin 500 mg capsule 500 mg PO QID RF: 0 No Action morphine 15 mg tablet extended release 15 mg PO Q12H Qty: 30 RF: 0 oxycodone-acetaminophen [Percocet] 5-325 mg tablet 1 tab PO Q6H PRN (Reason: pain) Qty: 60 RF: 0 Discharge Orders: Discharge Order (Routine); Ordered 05/02/20 Ordered By: Kenyatta Harding Admission Data Admit Date/Time: 04/26/20 22:54 Attending Provider: Kenyatta Harding Admit Provider: Chase Tucker Primary Care Provider: Jp Mckay Other Providers: Chase Tucker ; Tam Martinez ; Alfred Orourke ; Walt Jones ; Richard Clark ; Maurice Byrd ; Jp Hernandez ; Norma Patel ; Cyndie Metz ; Dalton Good ; Armin Westfall ; Georgiana Campos ; Armando Raymundo ; Berlin Reich ; Keron Barrow I. ; Deon Muñoz II ; Aparna Cm ; Jp Parker ; Fidelia Riggs ; [facility] Other Interventions: Discharge Summary Assessment (RN) Last Done: 05/02/20 13:39
== END 2020-05-02 14:37 | disposition home or self-care (01) | DRG 638 ==
LOC: ED 18:56 → SUATTDRO 22:54 → 2N 22:54